=== PATIENT | female | born 1995 | race Caucasian/White ===

== ENCOUNTER 2016-10-27 13:06 | Emergency (ER) | payer SELFPAY ==
--- NOTE | 2016-10-27 13:39 | ER Document Report ---
ED Medical Screen (RME) - General Stated Complaint: RIGHT EYE PAIN/DRAINAGE Time seen by provider: 13:38 Mode of Arrival: Ambulatory Information source: Patient Notes: 21-year-old female complaining of a papule on the right upper lid yesterday and she did have some drainage and redness to her right eye this morning. TRAVEL OUTSIDE OF THE [place] IN LAST 30 DAYS: No - Related Data Allergies/Adverse Reactions: No Known Allergies Allergy (Verified 10/27/16 13:37) Past Medical History Endocrine Medical History: Reports: Hx Diabetes Mellitus Type 2 Renal/ Medical History: Reports: Hx Ovarian Cysts Past Surgical History: Reports: Hx Genitourinary Surgery - D&C - Immunizations Immunizations up to date: Yes Hx Diphtheria, Pertussis, Tetanus Vaccination: Yes Physical Exam - Vital signs Vitals: Temp Pulse Resp BP Pulse Ox 98.3 F 79 18 136/86 H 100 10/27/16 13:23 10/27/16 13:23 10/27/16 13:23 10/27/16 13:23 10/27/16 13:23 Course - Vital Signs Vital signs: Temp Pulse Resp BP Pulse Ox 98.3 F 79 18 136/86 H 100 10/27/16 13:23 10/27/16 13:23 10/27/16 13:23 10/27/16 13:23 10/27/16 13:23
--- NOTE | 2016-10-27 14:06 | ER Document Report ---
HPI - HPI Patient complains to provider of: right eyelid pain Onset: Yesterday Onset/Duration: Gradual Quality of pain: Achy Pain Level: 2 Context: Patient complains of tenderness to right upper eyelid. 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 Patient states she is supposed to wear glasses but does not have a current prescription and does not wear them. Patient denies any change in her vision. Patient denies any drainage or discharge from her right eye. Associated Symptoms: Other - Right eyelid tenderness Exacerbated by: Movement Relieved by: Denies Similar symptoms previously: No Recently seen / treated by doctor: No - ROS ROS below otherwise negative: Yes Systems Reviewed and Negative: Yes All other systems reviewed and negative - CONSTITUTIONAL Constitutional: DENIES: Fever - EENT EENT: REPORTS: Eye problems - NEURO Neurology: DENIES: Headache, Weakness - GASTROINTESTINAL Gastrointestinal: DENIES: Nausea - REPRODUCTIVE Reproductive: DENIES: : - DERM Skin Color: Normal Skin Problems: None Past Medical History - General Information source: Patient - Social History Smoking Status: Never Smoker Frequency of alcohol use: None Drug Abuse: None 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 IN LAST 30 DAYS: No - HEENT HEENT: Atraumatic, Normocephalic Notes: Patient with tender papular lesion to right eyelid. Minimally erythematous. Area tender with palpation. No foreign body to eye. No fluoroscein uptake, no corneal abrasion, ulcer, or dendrite. Extraocular movements intact. No concern for orbital or preseptal cellulitis this time. - NECK Neck: Normal Inspection - RESPIRATORY Respiratory: No Respiratory Distress O2 Sat by Pulse Oximetry: 100 - MUSCULOSKELETAL/EXTREMETIES Musculoskeletal/Extremeties: MAEW - NEURO Level of Consciousness: Awake, Alert, Appropriate Motor/Sensory: No Motor Deficit - DERM Integumentary: Warm, Dry. negative: Abscess Course - Vital Signs Vital signs: Temp Pulse Resp BP Pulse Ox 98.3 F 79 18 136/86 H 100 10/27/16 13:23 10/27/16 13:23 10/27/16 13:23 10/27/16 13:23 10/27/16 13:23 Discharge - Discharge Clinical Impression: Pain of right eyelid, Skin lesion Condition: Stable Disposition: HOME, SELF-CARE Instructions: Antibiotic Therapy ([facility]) Additional Instructions: Return immediately for any new or worsening symptoms Followup with your primary care provider, call tomorrow to make a followup appointment Apply warm compresses to area for comfort Follow-up with java designer for any continued problems Prescriptions: Cephalexin Monohydrate [Keflex 500 mg Capsule] 500 mg PO Q6H 5 Days Naproxen [Naprosyn 250 Nmg Tablet] 1 tab PO BID #14 tablet Forms: Return to Work Referrals: NASH VICTORIA MD [ACTIVE STAFF] - Follow up as needed
[2016-10-27 14:29] VITALS: BP 136/91
== END 2016-10-27 14:28 | disposition home or self-care (01) ==
LOC: ER 13:06
DX: L98.9 Disorder of the skin and subcutaneous tissue, unspecified (principal); R51 Headache; E11.9 Type 2 diabetes mellitus without complications; Z91.19 Patient's noncompliance with other medical treatment and regimen
CPT/HCPCS: 99283

== ENCOUNTER 2017-02-11 17:34 | Emergency (ER) | payer MEDICAID ==
--- NOTE | 2017-02-11 19:46 | ER Document Report ---
ED Medical Screen (RME) - General Mode of Arrival: Ambulatory Information source: Patient TRAVEL OUTSIDE OF THE [place] IN LAST 30 DAYS: No - General Chief Complaint: Chest Tightness Stated Complaint: BLOOD PRESSURE ISSUE Notes: Patient is a 21-year-old female patient reports department for an episode of chest tightness, dizziness and hypertension. Patient states she was at work today and she is not feeling well. Patient had some chest tightness and then room spinning and dizziness. Patient states that she sat down for about 30 minutes and then came to the emergency department. Patient states that her chest pain lasted for about 10 minutes and felt like squeezing or tightness. Patient sat down because she thought she was going to pass out. Patient also had some numbness to her hands, which has been occurring for the past 2 weeks. Patient's blood pressure has been elevated for at least the past 2 weeks if not more. Patient's mother has a history of hypertension, but she is unsure about her father. Patient denies any history of anxiety. (LENA ESPARZA) - Related Data Allergies/Adverse Reactions: No Known Allergies Allergy (Verified 02/11/17 18:02) Past Medical History Endocrine Medical History: Reports: Hx Diabetes Mellitus Type 2 Renal/ Medical History: Reports: Hx Ovarian Cysts. Denies: Hx Peritoneal Dialysis Past Surgical History: Reports: Hx Genitourinary Surgery - D&C - Immunizations Immunizations up to date: Yes Hx Diphtheria, Pertussis, Tetanus Vaccination: Yes Physical Exam - Vital signs Interpretation: Hypertensive - General General appearance: Appears well, Alert - Respiratory Respiratory status: No respiratory distress - Cardiovascular Rhythm: Regular - Abdominal Inspection: Normal - Back Back: Normal - Extremities General upper extremity: Normal inspection, Normal ROM, Normal strength General lower extremity: Normal inspection, Normal ROM, Normal strength - Neurological Neuro grossly intact: Yes Cognition: Normal Orientation: AAOx4 Ramiro Coma Scale Eye Opening: Spontaneous [place] Coma Scale Verbal: Oriented [place] Coma Scale Motor: Obeys Commands Ramiro Coma Scale Total: 15 Speech: Normal Sensory: Normal - Psychological Associated symptoms: Normal affect, Normal mood - Skin Skin Temperature: Warm Skin Moisture: Dry - Vital signs Vitals: Temp Pulse Resp BP Pulse Ox 98.6 F 82 18 160/107 H 99 02/11/17 18:02 02/11/17 18:02 02/11/17 18:02 02/11/17 18:02 02/11/17 18:02 Course - Re-evaluation Re-evalutation: 02/11/17 19:47 Patient presents emergency Department with a chief complaint headache dizziness near syncopal episode numbness and tingling in the hands and chest pain. She is 21 years old she says that she's felt like her blood pressures been elevated for week she has a strong family history of high blood pressure she took it a couple times it was elevated and that she was afraid condition want have a high blood pressure she got up at work felt lightheaded and dizzy like she was given a pass out had to sit down. She felt tightening in her chest that lasts for about 10 minutes. Says she went and sat down she would've passed out. She denies any history or recent travel surgery mobilization DVT or pulmonary emboli. She states she occasionally gets blurred vision. She denies any visit to a primary care physician in years or any known medical problems. She denies nausea via dull pain diarrhea fevers chills or change in appetite. On examination her blood pressure is 160/107 she is complaining of blurred vision but her extraocular muscles intact no vertical or lateral nystagmus mucous members are moist ventral lesions heart rate and rhythm is regular without murmur Rub lungs chest is bilaterally abdomen is soft no tenderness guarding rebound rigidity pulses sensation motor intact EKG doesn't show any acute ST segment elevation or depression. Ordered additional laboratory evaluation chest x-ray she was transferred to the back for full assessment and workup of elevated blood pressure and chest pain. I personally performed the services described in the documentation reviewed the documentation recorded by my scribe in my presence and it accurately and completely records my words and actions 02/11/17 19:49 (DELANEY ANTONIO) - Vital Signs Vital signs: Temp Pulse Resp BP Pulse Ox 98.6 F 82 18 160/107 H 99 02/11/17 18:02 02/11/17 18:02 02/11/17 18:02 02/11/17 18:02 02/11/17 18:02 - EKG Interpretation by Me Additional EKG results interpreted by me: 02/11/17 19:49 EKG interpreted by myself to reveal sinus rhythm at [address] segment elevation or depression (DELANEY ANTONIO) Scribe Documentation - Scribe Written by Danisha:: Lena Esparza 02/11/17 20:00 acting as scribe for :: Salty
[2017-02-11 20:23] LABS: ABSOLUTE EOSINOPHILS # (AUTO) 0.2 10^3/uL (0.0-0.6); ABSOLUTE LYMPHOCYTES (AUTO) 2.7 10^3/uL (0.5-4.7); ABSOLUTE MONOCYTES (AUTO) 0.6 10^3/uL (0.1-1.4); ABSOLUTE NEUT (AUTO) 5.4 10^3/uL (1.7-8.2); BASOPHILS % (AUTO) 0.4 % (0-2); EOSINOPHILS % (AUTO) 1.9 % (0-6); LYMPHOCYTES % (AUTO) 30.1 % (13-45); MEAN CORPUSCULAR HEMOGLOBIN 28.2 pg (27.0-33.4); MEAN CORPUSCULAR VOLUME 83 fl (80-97); MONOCYTES % (AUTO) 7.2 % (3-13); RED BLOOD COUNT 4.95 10^6/uL (3.72-5.28); RED CELL DISTRIBUTION WIDTH 13.1 % (11.5-14.0); SEGMENTED NEUTROPHILS % (AUTO) 60.4 % (42-78); WHITE BLOOD COUNT 8.9 10^3/uL (4.0-10.5)
[2017-02-11 20:37] LABS: ANION GAP 17 (5-19); BLOOD UREA NITROGEN 14 mg/dL (7-20); CALCIUM 10.2 mg/dL (8.4-10.2); CARBON DIOXIDE 24 mmol/L (22-30); CHLORIDE 104 mmol/L (98-107); CREATININE RESULT 0.73 mg/dL (0.52-1.25); GLUCOSE 131 mg/dL (75-110); POTASSIUM 3.9 mmol/L (3.6-5.0); SODIUM 144.6 mmol/L (137-145)
[2017-02-11 20:50] LABS: CREATINE KINASE MB < 0.22 ng/mL (<4.55); TROPONIN I < 0.012 ng/mL
--- NOTE | 2017-02-11 22:19 | ER Document Report ---
ED General - General Chief Complaint: Chest Tightness Stated Complaint: BLOOD PRESSURE ISSUE Mode of Arrival: Ambulatory Notes: Patient is a 21-year-old female presents for complaint of high blood pressure, dizziness, chest. Patient says she has some high blood pressure now for a while. She says that she see primary care doctor but not sooner and a while. She says she just recently got her insurance back should she was go back to her primary care doctor. She says that she's had some intermittent tingling type sensation since her hands while work. She works as seen a. Today she had some brief chest tightness that lasted 10 minutes. No shortness of breath. She also felt dizzy as if she was going to pass out. She did not pass out. No associated headache. No focal weakness. No slurred speech. Patient says her blood pressure has been running high over the last several weeks when she checks at work. She has a strong family history of high blood pressure. Her mother started on high blood pressure medications at a very young age as well. There is some family history of coronary disease. Her grandfather had bypass surgery in his 50s. Patient's mother said bedside and said that the patient's grandmother also had an AL in her 30s; however, says that she did not require stenting or bypass surgery. Patient currently is asymptomatic and she has no other complaints. TRAVEL OUTSIDE OF THE [place] IN LAST 30 DAYS: No - Related Data Allergies/Adverse Reactions: No Known Allergies Allergy (Verified 02/11/17 18:02) Past Medical History - General Information source: Patient - Social History Smoking Status: Never Smoker Frequency of alcohol use: None Drug Abuse: None Family History: Reviewed & Not Pertinent Patient has suicidal ideation: No Patient has homicidal ideation: No Endocrine Medical History: Reports: Hx Diabetes Mellitus Type 2 Renal/ Medical History: Reports: Hx Ovarian Cysts. Denies: Hx Peritoneal Dialysis Past Surgical History: Reports: Hx Genitourinary Surgery - D&C - Immunizations Immunizations up to date: Yes Hx Diphtheria, Pertussis, Tetanus Vaccination: Yes Review of Systems - Review of Systems Notes: My Normal Review Basic REVIEW OF SYSTEMS: CONSTITUTIONAL : Denies fever, chills, or sweats. Denies recent illness. CARDIOVASCULAR: Brief chest tightness. RESPIRATORY: Denies cough, cold, or chest congestion. Denies shortness of breath, difficulty breathing, or wheezing. GASTROINTESTINAL: Denies abdominal pain. Denies nausea, vomiting, or diarrhea. Denies constipation. Last BM: GENITOURINARY: Denies difficulty urinating, painful urination, burning, frequency, or blood in urine. FEMALE GENITOURINARY: Denies vaginal bleeding, abnormal or irregular periods. MUSCULOSKELETAL: Denies neck or back pain or joint pain or swelling. SKIN: Denies rash or skin lesions. NEUROLOGICAL: Had dizziness.. Denies headache. Denies weakness or paralysis or loss of use of either side. Denies problems with gait or speech. Denies sensory or motor loss. ALL OTHER SYSTEMS REVIEWED AND NEGATIVE. Physical Exam - Vital signs Vitals: Temp Pulse Resp BP Pulse Ox 98.6 F 82 18 160/107 H 99 02/11/17 18:02 02/11/17 18:02 02/11/17 18:02 02/11/17 18:02 02/11/17 18:02 - Notes Notes: General Appearance: Well nourished, alert, cooperative, no acute distress, no obvious discomfort. Well-appearing. Vitals: reviewed, See vital signs table. Head: no swelling or tenderness to the head Eyes: PERRL, EOMI, Conjuctiva clear Mouth: No decreasd moisture Lungs: No wheezing, No rales, No rhonci, No accessory muscle use, good air exchange bilaterally. Heart: Normal rate, Regular rythm, No murmur, no rub Abdomen: Normal BS, soft, No rigidity, No abdominal tenderness, No guarding, no rebound, no abdominal masses, no organomegaly Extremities: strength 5/5 in all extremities, good pulses in all extremities, no swelling or tenderness in the extremities, no edema. Skin: warm, dry, appropriate color, no rash Neuro: speech clear, oriented x 3, normal affect, responds appropriately to questions. Cranial nerves II through XII are intact. Patient was alternates without difficulty. Normal focal neurologic deficits on exam. Course - Vital Signs Vital signs: Temp Pulse Resp BP Pulse Ox 98.6 F 82 18 160/107 H 99 02/11/17 18:02 02/11/17 18:02 02/11/17 18:02 02/11/17 18:02 02/11/17 18:02 - Laboratory Result Diagrams: 02/11/17 19:55 02/11/17 19:55 Laboratory results interpreted by me: 02/11/17 19:55 Glucose 131 H - EKG Interpretation by Me Additional EKG results interpreted by me: 02/11/17 22:19 EKG is reviewed and interpreted by me. EKG shows normal sinus rhythm with a rate of [address] segment elevation or depression. No ischemic T wave inversions. ID interval, QRS duration, QTc interval's are within normal range. Old EKG for comparison is from 06/12/2014. - Transfer of Care Notes: 02/11/17 22:44 Patient is consistent high blood pressure for at least 2 weeks. She has a strong family history of high blood pressure. She is slightly overweight. I did talk about diet change. We'll place on low-dose hydrochlorothiazide. She agrees to make a close follow-up appointment with her primary care doctor. Her laboratory evaluation is unremarkable. Her EKG is normal. She is asymptomatic this time. I feel she is safe to be discharged home. I encouraged to return to ER if she has recurrent chest pain, difficulty breathing, severe headaches, or feels unwell. I encourage her to check her blood pressure immediately if she feels lightheaded or dizzy. Patient agrees with plan and will be discharged home. Dictation of this chart was performed using voice recognition software; therefore, there may be some unintended grammatical errors. Discharge - Discharge Clinical Impression: Chest tightness Hypertension Qualifiers: Hypertension type: essential hypertension Qualified Code(s): I10 - Essential ( primary) hypertension Condition: Good Disposition: HOME, SELF-CARE Additional Instructions: HIGH BLOOD PRESSURE REQUIRING TREATMENT: Your blood pressure is high. This is called "hypertension." Today's reading was ___160/107 (normal is less than 140/90). Your history and exam suggest that this is not a temporary problem. You need treatment of your blood pressure. If left untreated, high blood pressure greatly increases your risk of heart attack and stroke. Please don't ignore this problem. If you have blood pressure medicine but aren't using it regularly, start taking it again. Some simple things you can do to help are: Get some aerobic exercise for at least 20 minutes on a daily basis. (See your doctor before beginning any new exercise program.) Eat a low-fat diet. Lose excess weight. Avoid salty foods and avoid adding salt to any of the foods you eat. Avoid diet pills, decongestants, "energizing" herbs, and other medicines that elevate blood pressure. There are many different medicines that treat blood pressure. If your medication causes unpleasant side effects, call your doctor. There are others you can try. Treating hypertension is a life-long investment in your health. HYDROCHLOROTHIAZIDE: Hydrochlorothiazide is a diuretic medication. Diuretics are often called "water pills." The medicine flushes excess salt and water from the body. Diuretics are used for fluid retention (such as heart failure, cirrhosis, or lung disease) and for blood pressure control. Often hydrochlorothiazide is combined with other medicines in the same pill. Most patients prefer to take the medicine in the morning. Hydrochlorothiazide makes extra urine, which can be a problem if you take the pill at night. Diuretics make you lose potassium. Sometimes a good diet with plenty of fruit is enough to replace it. Sometimes a potassium supplement is necessary. Or, hydrochlorothiazide may be combined with medicines that prevent potassium loss. We usually recommend a blood potassium test in a few weeks. Contact your doctor if you develop extreme fatigue, muscle weakness, lethargy, confusion, or palpitations. FOLLOW-UP CARE: If you have been referred to a physician for follow-up care, call the physician s office for an appointment as you were instructed or within the next two days. If you experience worsening or a significant change in your symptoms, notify the physician immediately or return to the Emergency Department at any time for re-evaluation. Please return to the ER immediately if you have recurrent chest pain, severe headache, or feel unwell. Please make an appointment to see your doctor to discuss further management of your blood pressure. Check your blood pressure if you are feeling light headed to make sure your blood pressure is not becoming too low. Prescriptions: Hydrochlorothiazide 12.5 mg PO DAILY #15 capsule Forms: Return to Work
[2017-02-11] MEDS ORDERED: HYDROCHLOROTHIAZIDE 12.5 MG CAPSULE PO ONE (22:29)
[2017-02-11 22:52] VITALS: BP 147/102
--- NOTE | 2017-02-12 09:39 | EKG REPORT ---
SEVERITY:- BORDERLINE ECG - SINUS RHYTHM BORDERLINE T ABNORMALITIES, INFERIOR LEADS : Confirmed by: Katelin Bull 12-Feb-2017 09:38:47
== END 2017-02-11 22:52 | disposition home or self-care (01) ==
LOC: ER 17:34
DX: R07.9 Chest pain, unspecified (principal); I10 Essential (primary) hypertension; R42 Dizziness and giddiness
CPT/HCPCS: 36415; 71010; 80048; 82553; 84484; 85025; 93005; 93010; 99284

== ENCOUNTER 2017-05-03 14:52 | Emergency (ER) | payer SELFPAY ==
--- NOTE | 2017-05-03 16:29 | ER Document Report ---
ED Medical Screen (RME) - General Chief Complaint: Nausea Stated Complaint: BACK PAIN Time Seen by Provider: 05/03/17 16:22 Mode of Arrival: Ambulatory Information source: Patient Notes: Patient is a 21 year old female who presents to the ED with complaints of intermittent low back pain for the past couple weeks. 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 Patient states the symptoms have progressively worsened over the last few weeks. Patient denies vomiting but states she has had a decreased appetite. Patient denies any burning with urination or hematuria. TRAVEL OUTSIDE OF THE [place] IN LAST 30 DAYS: No - HPI Associated Symptoms: Other - see above - Related Data Allergies/Adverse Reactions: No Known Allergies Allergy (Verified 05/03/17 15:16) Past Medical History - General Information source: Patient - Social History Cigarette use (# per day): No Chew tobacco use (# tins/day): No Frequency of alcohol use: None Drug Abuse: None Endocrine Medical History: Reports: Hx Diabetes Mellitus Type 2 Renal/ Medical History: Reports: Hx Ovarian Cysts. Denies: Hx Peritoneal Dialysis Past Surgical History: Reports: Hx Genitourinary Surgery - D&C - Immunizations Immunizations up to date: Yes Hx Diphtheria, Pertussis, Tetanus Vaccination: Yes Review of Systems - Review of Systems Constitutional: No symptoms reported EENT: No symptoms reported Cardiovascular: See HPI, Dizziness Respiratory: No symptoms reported Gastrointestinal: See HPI, Nausea. denies: Vomiting Genitourinary: See HPI. denies: Burning, Hematuria Female Genitourinary: No symptoms reported Musculoskeletal: See HPI, Back pain Skin: No symptoms reported Hematologic/Lymphatic: No symptoms reported Neurological/Psychological: No symptoms reported Physical Exam - Vital signs Vitals: Temp Pulse Resp BP Pulse Ox 98.8 F 80 20 143/94 H 100 05/03/17 15:16 05/03/17 15:16 05/03/17 15:16 05/03/17 15:16 05/03/17 15:16 - General General appearance: Appears well, Alert In distress: None - Respiratory Respiratory status: No respiratory distress Breath sounds: Normal - Cardiovascular Rhythm: Regular Heart sounds: Normal auscultation Murmur: No - Back Back: Tender - mild lumbar tenderness - Neurological Neuro grossly intact: Yes Course - Vital Signs Vital signs: Temp Pulse Resp BP Pulse Ox 98.8 F 80 20 143/94 H 100 05/03/17 15:16 05/03/17 15:16 05/03/17 15:16 05/03/17 15:16 05/03/17 15:16 Scribe Documentation - Scribe Written by Griselda:: griselda Cruz, 05/03/2017, 0720 acting as scribe for :: Adele
[2017-05-03 17:01] LABS: ABSOLUTE BASOPHILS # (AUTO) 0.1 10^3/uL (0.0-0.2); ABSOLUTE EOSINOPHILS # (AUTO) 0.2 10^3/uL (0.0-0.6); ABSOLUTE LYMPHOCYTES (AUTO) 2.8 10^3/uL (0.5-4.7); ABSOLUTE NEUT (AUTO) 5.7 10^3/uL (1.7-8.2); BASOPHILS % (AUTO) 0.6 % (0-2); EOSINOPHILS % (AUTO) 2.3 % (0-6); HEMATOCRIT 41.8 % (36.0-47.0); HEMOGLOBIN 13.7 g/dL (12.0-15.5); HGB HCT DIFFERENCE -0.7; MEAN CORPUSCULAR HEMOGLOBIN 27.7 pg (27.0-33.4); MEAN CORPUSCULAR HGB CONC 32.8 g/dL (32.0-36.0); MEAN CORPUSCULAR VOLUME 85 fl (80-97); MONOCYTES % (AUTO) 9.9 % (3-13); RED BLOOD COUNT 4.94 10^6/uL (3.72-5.28); SEGMENTED NEUTROPHILS % (AUTO) 58.2 % (42-78); WHITE BLOOD COUNT 9.7 10^3/uL (4.0-10.5)
[2017-05-03 17:14] LABS: APPEARANCE,URINE SLIGHTLY-CLOUDY; BILIRUBIN,URINE NEGATIVE (NEGATIVE); GLUCOSE, URINE NEGATIVE (NEGATIVE); KETONES,URINE NEGATIVE (NEGATIVE); LEUKOCYTE ESTERASE,URINE TRACE (NEGATIVE); NITRITE,URINE NEGATIVE (NEGATIVE); PROTEIN,URINE NEGATIVE (NEGATIVE); URINE SPECIFIC GRAVITY 1.019; UROBILINOGEN,URINE NEGATIVE mg/dL (<2.0)
[2017-05-03 17:31] LABS: ANION GAP 9 (5-19); BLOOD UREA NITROGEN 16 mg/dL (7-20); CALCIUM 9.7 mg/dL (8.4-10.2); CARBON DIOXIDE 26 mmol/L (22-30); CHLORIDE 103 mmol/L (98-107); CREATININE RESULT 0.75 mg/dL (0.52-1.25); GLUCOSE 98 mg/dL (75-110); POTASSIUM 4.6 mmol/L (3.6-5.0); SODIUM 138.1 mmol/L (137-145)
--- NOTE | 2017-05-03 18:36 | ER Document Report ---
ED General - General Mode of Arrival: Ambulatory Information source: Patient TRAVEL OUTSIDE OF THE [place] IN LAST 30 DAYS: No - HPI Onset: Other - Refer to HPI notes Associated symptoms: Body/muscle aches, Nausea, Shortness of breath. denies: Chills, Productive cough, Earache, Fever, Sore throat Similar symptoms previously: No Recently seen / treated by doctor: No <LENA JAIMES - Last Filed: 05/03/17 19:03> <DELANEY ANTONIO - Last Filed: 05/04/17 04:22> - General Chief Complaint: Nausea Stated Complaint: BACK PAIN Time Seen by Provider: 05/03/17 16:22 Notes: Patient is a 21-year-old female presenting to the emergency department for some low back pain and nausea. Patient states she has had symptoms for a couple weeks along with some body cramps. Patient also complains of some shortness of breath that she relates to her anxiety and some blurred vision which she relates to her hypertension. Patient relates that she is primarily concerned that something is wrong because she has had increased tiredness along with her other symptoms. Patient denies any cough, fever, sore throat, ear pain, congestion, or sick contacts. Patient states he continues to have a primary care physician during the insurance that she is not having care physician. Patient has no known drug allergies. (LENA JAIMES) - Related Data Allergies/Adverse Reactions: No Known Allergies Allergy (Verified 05/03/17 15:16) Past Medical History - General Information source: Patient - Social History Smoking Status: Never Smoker Cigarette use (# per day): No Chew tobacco use (# tins/day): No Frequency of alcohol use: None Drug Abuse: None Family History: None Patient has suicidal ideation: No Patient has homicidal ideation: No - Past Medical History Cardiac Medical History: Reports: Hx Hypertension Renal/ Medical History: Reports: Hx Ovarian Cysts Psychiatric Medical History: Reports: Hx Anxiety Past Surgical History: Reports: Hx Genitourinary Surgery - D&C - Immunizations Immunizations up to date: Yes Hx Diphtheria, Pertussis, Tetanus Vaccination: Yes <LENA JAIMES - Last Filed: 05/03/17 19:03> Review of Systems - Review of Systems Constitutional: See HPI, Other - cramping EENT: See HPI, Blurred vision Cardiovascular: No symptoms reported Respiratory: See HPI, Short of breath Gastrointestinal: See HPI, Nausea Genitourinary: No symptoms reported Female Genitourinary: No symptoms reported Musculoskeletal: No symptoms reported Skin: No symptoms reported Hematologic/Lymphatic: No symptoms reported Neurological/Psychological: See HPI, Anxiety -: Yes All other systems reviewed and negative <LENA JAIMES - Last Filed: 05/03/17 19:03> Physical Exam - Vital signs Interpretation: Hypertensive <LENA JAIMES - Last Filed: 05/03/17 19:03> <DELANEY ANTONIO - Last Filed: 05/04/17 04:22> - Vital signs Vitals: Temp Pulse Resp BP Pulse Ox 98.8 F 80 20 143/94 H 100 05/03/17 15:16 05/03/17 15:16 05/03/17 15:16 05/03/17 15:16 05/03/17 15:16 - Notes Notes: GENERAL: Alert, interacts well. No acute distress. HEAD: Normocephalic, atraumatic. EYES: Appear normal. Pupils equal, round, and reactive to light. ENT: Moist mucus membranes, tongue midline. NECK: Full range of motion. Supple. Trachea midline. LUNGS: Clear to auscultation bilaterally, no wheezes, rales, or rhonchi. No respiratory distress. HEART: Regular rate and rhythm. No murmurs, gallops, or rubs. ABDOMEN: Soft, non-tender. Non-distended. Normal bowel sounds. EXTREMITIES: Moves all 4 extremities spontaneously. Normal strength. No edema. NEUROLOGICAL: Alert and oriented x3. Normal speech. No focal neurological deficits. GSC 15. PSYCH: Normal affect, normal mood. SKIN: Warm, dry, normal turgor. No rashes or lesions noted. (LENA JAIMES) Course - Laboratory Result Diagrams: 05/03/17 16:35 05/03/17 16:35 <LENA JAIMES - Last Filed: 05/03/17 19:03> - Laboratory Result Diagrams: 05/03/17 16:35 05/03/17 16:35 <DELANEY ANTONIO - Last Filed: 05/04/17 04:22> - Re-evaluation Re-evalutation: 05/03/17 18:38 Patient presents the emergency department chief complaint of having felt well ever for 2 weeks. She states that she has been tired intermittent trouble focusing and her anxiety has been worse. She denies any headache blurred vision double vision earache sore throat cough chest pain shortness of breath nausea vomiting dull pain diarrhea urinary symptoms with admits to some low back pain which is not flank in nature. Vital signs are stable she is well- appearing nontoxic no acute distress with no acute findings on physical examination including no midline back tenderness lumbosacral weakness good pulses and perfusion abdomen without guarding rebound or rigidity acute labs are normal. At this time no need for emergent medical intervention. Going to discharge her to home follow-up with her primary care physician and getting her from the clinic and discussed reasons for ED return sooner (DELANEY ANTONIO) - Vital Signs Vital signs: Temp Pulse Resp BP Pulse Ox 98.0 F 70 18 136/90 H 99 05/03/17 18:50 05/03/17 18:50 05/03/17 18:50 05/03/17 18:50 05/03/17 18:50 - Laboratory Laboratory results interpreted by me: 05/03/17 16:35 Ur Leukocyte Esterase TRACE H Urine Ascorbic Acid 20 H Discharge <LENA JAIMES - Last Filed: 05/03/17 19:03> <DELANEY ANTONIO - Last Filed: 05/04/17 04:22> - Discharge Clinical Impression: Generalized weakness Condition: Stable Disposition: HOME, SELF-CARE Additional Instructions: Weakness We did not find a definite cause for your weakness. This may require further medical tests. Weakness can be caused by infection, physical exhaustion , rapid weight loss, dehydration, or medicine side effects. Diseases of the muscles, heart, nerves, and blood vessels can make you weak. Sometimes the problem is simply depression or lack of exercise. You should get plenty of rest. Unless the doctor tells you otherwise, it's usually best to add short periods of regular mild exercise. Eat a nutritious diet with multiple small, low-sugar meals. If symptoms continue, additional medical evaluation will be necessary. Be sure to follow up as instructed. If you become very dizzy, nauseated, or feel like you're going to faint, lie down right away. Wait until the symptoms have passed before you get up again. Stand up slowly. Call the doctor or return if you develop chest pain, abdominal pain, severe headache, irregular heartbeat or very fast pulse, confusion, vision problems, fever, muscular pain, or any other new symptom. Referrals: [facility] [Provider Group] (Call for an appointment to be seen in follow-up in 4-5 days return for increasing worsening or new symptoms) Scribe Attestation: 05/03/17 18:40 I personally performed the services described in the documentation reviewed the documentation recorded by my scribe in my presence and it accurately and completely records my words and actions (DELANEY ANTONIO) Scribe Documentation - Scribe Written by Scribe:: Danisha Hannah, 05/03/2017 19:03 acting as scribe for :: Salty <LENA JAIMES - Last Filed: 05/03/17 19:03>
[2017-05-03 18:55] VITALS: BP 136/90
== END 2017-05-03 18:53 | disposition home or self-care (01) ==
LOC: ER 14:52
DX: R53.1 Weakness (principal); R11.0 Nausea; M79.1 Myalgia; R06.02 Shortness of breath; I10 Essential (primary) hypertension
CPT/HCPCS: 36415; 80048; 81001; 81025; 84443; 85025; 99283

== ENCOUNTER 2017-09-22 01:53 | Emergency (ER) | payer SELFPAY ==
[2017-09-22 02:18] VITALS: BP 152/86
--- NOTE | 2017-09-22 04:12 | ER Document Report ---
ED General - General Chief Complaint: Medication Refill Stated Complaint: BLOOD PRESSURE ISSUE Time Seen by Provider: 09/22/17 03:46 Notes: Patient is a pleasant 22-year-old female has a history of hypertension. She has been seen here in the past for hypertension prescribed medications. She says since then she has also gone to [facility] ER. She says sometimes when she goes without the medication she will get some headaches and sometimes dizziness. She said she had that earlier in the day today but currently is not having no symptoms. She denies any chest pain or shortness of breath. She says she is on amlodipine 5 mg daily. She ran out of it 3-4 days ago. No focal weakness or numbness. TRAVEL OUTSIDE OF THE [place] IN LAST 30 DAYS: No - Related Data Allergies/Adverse Reactions: No Known Allergies Allergy (Verified 05/03/17 15:16) Home Medications: Current Home Medications Amlodipine Besylate [Norvasc 5 mg Tablet] 5 mg PO DAILY 09/22/17 [History] Past Medical History - Social History Smoking Status: Unknown if Ever Smoked Frequency of alcohol use: None Drug Abuse: None Family History: None Patient has suicidal ideation: No Patient has homicidal ideation: No - Past Medical History Cardiac Medical History: Reports: Hx Hypertension Endocrine Medical History: Reports: Hx Diabetes Mellitus Type 2 Renal/ Medical History: Reports: Hx Ovarian Cysts. Denies: Hx Peritoneal Dialysis Psychiatric Medical History: Reports: Hx Anxiety Past Surgical History: Reports: Hx Genitourinary Surgery - D&C - Immunizations Immunizations up to date: Yes Hx Diphtheria, Pertussis, Tetanus Vaccination: Yes Review of Systems - Review of Systems Notes: My Normal Review Basic REVIEW OF SYSTEMS: CONSTITUTIONAL : Denies fever, chills, or sweats. Denies recent illness. CARDIOVASCULAR: Denies chest pain. RESPIRATORY: Denies cough, cold, or chest congestion. Denies shortness of breath, difficulty breathing, or wheezing. GASTROINTESTINAL: Denies abdominal pain. Denies nausea, vomiting, or diarrhea. Denies constipation. Last BM: MUSCULOSKELETAL: Denies neck or back pain or joint pain or swelling. SKIN: Denies rash or skin lesions. NEUROLOGICAL: Denies altered mental status or loss of consciousness. intermittent headache. Denies weakness or paralysis or loss of use of either side. Denies problems with gait or speech. Denies sensory or motor loss. ALL OTHER SYSTEMS REVIEWED AND NEGATIVE. Physical Exam - Vital signs Vitals: Temp Pulse Resp BP Pulse Ox 98.8 F 84 18 152/86 H 99 09/22/17 02:15 09/22/17 02:15 09/22/17 02:15 09/22/17 02:15 09/22/17 02:15 - Notes Notes: General Appearance: Well nourished, alert, cooperative, no acute distress, no obvious discomfort. Vitals: reviewed, See vital signs table. Head: no swelling or tenderness to the head Eyes: PERRL, EOMI, Conjuctiva clear Mouth: No decreasd moisture Lungs: No wheezing, No rales, No rhonci, No accessory muscle use, good air exchange bilaterally. Heart: Normal rate, Regular rythm, No murmur, no rub Extremities: strength 5/5 in all extremities, good pulses in all extremities, no swelling or tenderness in the extremities, no edema. Skin: warm, dry, appropriate color, no rash Neuro: speech clear, oriented x 3, normal affect, responds appropriately to questions. Cranial nerves II through XII are grossly intact. Patient has normal ambulation. Course - Re-evaluation Re-evalutation: 09/22/17 06:32 Patient looks well. I feel the patient safe to be discharged home. She has no symptoms at this time. She had some headache earlier but that has resolved. She says this headache is typical for her whenever she runs out of her blood pressure medication her blood pressure starts to increase. I will place her back on amlodipine. I talked her length about the need to follow with a primary care physician to have chronic management of her high blood pressure. She says she does not have insurance. I did talked about the [facility] and told her that sometimes there is a little bit of a wait to get an however she should call now to make an appointment so that she will have a eventual primary care doctor follow-up with. Patient agrees with this will be discharged home. She is encouraged to return to ER if she has worsening high blood pressure, chest pain, severe headaches, or feels unwell. Dictation of this chart was performed using voice recognition software; therefore, there may be some unintended grammatical errors. - Vital Signs Vital signs: Temp Pulse Resp BP Pulse Ox 98.8 F 84 18 152/86 H 99 09/22/17 02:15 09/22/17 02:15 09/22/17 02:15 09/22/17 02:15 09/22/17 02:15 Discharge - Discharge Clinical Impression: Hypertension Qualifiers: Hypertension type: unspecified Qualified Code(s): I10 - Essential (primary) hypertension Condition: Good Disposition: HOME, SELF-CARE Instructions: Family Physicians / Practices Additional Instructions: CALCIUM CHANNEL BLOCKERS: A medication of the calcium channel jessica type has been prescribed for you. Examples of this type of medicine are Calan, Isoptin, Procardia, and Cardizem. These medicines have a variety of uses, including prevention of angina attacks, treatment of blood pressure, regulation of certain heart rhythm problems, and prevention of migraine headaches. Calcium channel blockers work by interfering with the flow of calcium in cell membranes. This results in dilation of blood vessels, and slowing of electrical conduction in the heart. A slight dizziness (due to a fall in blood pressure) may occur with the first dose, and sometimes even with later doses. This may make you prone to dizziness if you stand up suddenly. Call the doctor if lightheadedness is severe, or if you develop palpitations, shortness of breath, or any other new or alarming symptoms. FOLLOW-UP CARE: If you have been referred to a physician for follow-up care, call the physician s office for an appointment as you were instructed or within the next two days. If you experience worsening or a significant change in your symptoms, notify the physician immediately or return to the Emergency Department at any time for re-evaluation. Please return to the ER immediately if you have worsening headaches, difficulty breathing, vomiting, chest pain or feel unwell. Please call the [facility] to arrange for a follow up appointment and become established with them for terminal manager treatment of your blood pressure. Prescriptions: Amlodipine Besylate 5 mg PO DAILY #30 tab
== END 2017-09-22 04:16 | disposition home or self-care (01) ==
LOC: ER 01:53
DX: I10 Essential (primary) hypertension (principal); R51 Headache; R42 Dizziness and giddiness; Z79.899 Other long term (current) drug therapy
CPT/HCPCS: 99281

== ENCOUNTER 2017-11-28 16:38 | Emergency (ER) | payer SELFPAY ==
[2017-11-28] MEDS ORDERED: CLONIDINE HCL 0.1 MG TABLET PO ONE (17:10)
--- NOTE | 2017-11-28 17:13 | ER Document Report ---
ED General - General Chief Complaint: Medication Refill Stated Complaint: MEDICATION REFILL Time Seen by Provider: 11/28/17 16:59 Mode of Arrival: Ambulatory Information source: Patient Notes: Patient is a 22-year-old female who presents to the ER today for refill on her blood pressure medication. Patient states that she usually takes Norvasc 5 mg at night but ran out approximately 3 weeks ago. Patient is complaining of a headache but denies any chest discomfort, shortness of breath, blurred vision. Although she states that she has been getting all of these symptoms intermittently from time to time. Patient states that she is waiting on her insurance to "go through so that I can go to a regular doctor and get this checked out." TRAVEL OUTSIDE OF THE [place] IN LAST 30 DAYS: No - Related Data Allergies/Adverse Reactions: No Known Allergies Allergy (Verified 11/28/17 16:38) Past Medical History - General Information source: Patient - Social History Smoking Status: Never Smoker Family History: None - Past Medical History Cardiac Medical History: Reports: Hx Hypertension Endocrine Medical History: Reports: Hx Diabetes Mellitus Type 2 Renal/ Medical History: Reports: Hx Ovarian Cysts. Denies: Hx Peritoneal Dialysis Psychiatric Medical History: Reports: Hx Anxiety Past Surgical History: Reports: Hx Genitourinary Surgery - D&C - Immunizations Immunizations up to date: Yes Hx Diphtheria, Pertussis, Tetanus Vaccination: Yes Review of Systems - Review of Systems Constitutional: No symptoms reported EENT: No symptoms reported Cardiovascular: See HPI Respiratory: No symptoms reported Gastrointestinal: No symptoms reported Genitourinary: No symptoms reported Female Genitourinary: No symptoms reported Musculoskeletal: No symptoms reported Skin: No symptoms reported Hematologic/Lymphatic: No symptoms reported Neurological/Psychological: No symptoms reported Physical Exam - Vital signs Vitals: Temp Pulse Resp BP Pulse Ox 98.9 F 71 16 154/101 H 98 11/28/17 16:47 11/28/17 16:47 11/28/17 16:47 11/28/17 16:47 11/28/17 16:47 - Notes Notes: PHYSICAL EXAMINATION: GENERAL: Well-appearing and in no acute distress. HEAD: Atraumatic, normocephalic. EYES: Pupils equal round and reactive to light, extraocular movements intact, sclera anicteric, conjunctiva are normal. ENT: ear canals without erythema or foreign body, TMs pearly sneed with good bony landmarks, nares patent, oropharynx clear without exudates. Moist mucous membranes. NECK: Normal range of motion, supple without lymphadenopathy LUNGS: CTAB and equal. No wheezes rales or rhonchi. HEART: Regular rate and rhythm without murmurs ABDOMEN: Soft, no tenderness. No guarding, no rebound BACK: no vertebral tenderness, normal ROM GI/: no CVA tenderness EXTREMITIES: Normal range of motion, no pitting edema. No cyanosis. NEUROLOGICAL: Cranial nerves grossly intact. Normal sensory/motor exams. PSYCH: Normal mood, normal affect. SKIN: Warm, Dry, normal turgor, no rashes or lesions noted Course - Vital Signs Vital signs: Temp Pulse Resp BP Pulse Ox 98.9 F 71 16 154/101 H 98 11/28/17 16:47 11/28/17 16:47 11/28/17 16:47 11/28/17 16:47 11/28/17 16:47 Discharge - Discharge Clinical Impression: Hypertension Qualifiers: Hypertension type: essential hypertension Qualified Code(s): I10 - Essential ( primary) hypertension Condition: Stable Disposition: HOME, SELF-CARE Additional Instructions: Return immediately for any new or worsening symptoms. Follow up with primary care provider, call tomorrow to make followup appointment. Prescriptions: Amlodipine Besylate [Norvasc 5 mg Tablet] 5 mg PO DAILY #30 tablet Clonidine HCl 0.1 mg PO Q8 PRN #15 tablet PRN Reason: Forms: Return to Work
[2017-11-28 17:40] VITALS: BP 137/86
== END 2017-11-28 17:45 | disposition home or self-care (01) ==
LOC: ER 16:38
DX: Z76.0 Encounter for issue of repeat prescription (principal); I10 Essential (primary) hypertension; R51 Headache; T46.1X6A Underdosing of calcium-channel blockers, initial encounter; Z91.128 Patient's intentional underdosing of medication regimen for other reason; Z91.14 Patient's other noncompliance with medication regimen; E11.9 Type 2 diabetes mellitus without complications
CPT/HCPCS: 99281

== ENCOUNTER 2017-11-29 19:11 | Emergency (ER) | payer SELFPAY ==
--- NOTE | 2017-11-29 20:02 | ER Document Report ---
ED Medical Screen (RME) - General Chief Complaint: Headache Stated Complaint: VISION PROBLEMS Time Seen by Provider: 11/29/17 19:57 Mode of Arrival: Ambulatory Information source: Patient TRAVEL OUTSIDE OF THE [place] IN LAST 30 DAYS: No - HPI Notes: 11/29/17 19:57 22 yr old female with a hx of htn presents today with c/o of sudden onset headache with flashing light and loss of vision in left eye. reports headache 5 minutes after her visual disturbance with left arm numbness and tingling. reports nausea, denies v/d. reports cp and sob at the time, but has since resolved. reports she has been taking bp meds for 5 months, ran months for 4 days, came to her for a refill of her medications. reports she took her bp meds , norvasc and clonidine. - Related Data Allergies/Adverse Reactions: No Known Allergies Allergy (Verified 11/29/17 19:23) Past Medical History - Past Medical History Cardiac Medical History: Reports: Hx Hypertension Endocrine Medical History: Reports: Hx Diabetes Mellitus Type 2 Renal/ Medical History: Reports: Hx Ovarian Cysts. Denies: Hx Peritoneal Dialysis Psychiatric Medical History: Reports: Hx Anxiety Past Surgical History: Reports: Hx Genitourinary Surgery - D&C - Immunizations Immunizations up to date: Yes Hx Diphtheria, Pertussis, Tetanus Vaccination: Yes Physical Exam - Vital signs Vitals: Temp Pulse Resp BP Pulse Ox 99.0 F 71 20 147/97 H 100 11/29/17 19:51 11/29/17 19:51 11/29/17 19:51 11/29/17 19:51 11/29/17 19:51 - Respiratory Respiratory status: No respiratory distress Chest status: Nontender Breath sounds: Normal Chest palpation: Normal - Cardiovascular Rhythm: Regular Murmur: No - Neurological Neuro grossly intact: Yes Cognition: Normal Orientation: AAOx4 Ramiro Coma Scale Eye Opening: Spontaneous Cavalier Coma Scale Verbal: Oriented Cavalier Coma Scale Motor: Obeys Commands Cavalier Coma Scale Total: 15 Speech: Normal Cranial nerves: Normal Cerebellar coordination: Normal Motor strength normal: LUE, RUE, LLE, RLE Additional motor exam normals: Equal box finisher Course - Vital Signs Vital signs: Temp Pulse Resp BP Pulse Ox 99.0 F 71 20 147/97 H 100 11/29/17 19:51 11/29/17 19:51 11/29/17 19:51 11/29/17 19:51 11/29/17 19:51
[2017-11-29] MEDS ORDERED: LOSARTAN POTASSIUM 25 MG TABLET PO ONE (20:05)
--- NOTE | 2017-11-29 21:09 | RADIOLOGY REPORT (SQ) ---
EXAM DESCRIPTION: CHEST PA/LAT COMPLETED DATE/TIME: 11/29/2017 9:00 pm REASON FOR STUDY: tucker with n/t down arm. +cp with sob COMPARISON: 02/11/2017 EXAM PARAMETERS: NUMBER OF VIEWS: two views TECHNIQUE: Digital Frontal and Lateral radiographic views of the chest acquired. RADIATION DOSE: NA LIMITATIONS: none FINDINGS: LUNGS AND PLEURA: No opacities, masses or pneumothorax. No pleural effusion. MEDIASTINUM AND HILAR STRUCTURES: No masses or contour abnormalities. HEART AND VASCULAR STRUCTURES: Heart normal size. No evidence for failure. BONES: No acute findings. HARDWARE: None in the chest. OTHER: No other significant finding. IMPRESSION: NO SIGNIFICANT RADIOGRAPHIC FINDING IN THE CHEST. TECHNICAL DOCUMENTATION: JOB ID: [id number] [employer]- All Rights Reserved
--- NOTE | 2017-11-29 21:12 | RADIOLOGY REPORT (SQ) ---
EXAM DESCRIPTION: CT HEAD WITHOUT COMPLETED DATE/TIME: 11/29/2017 9:04 pm REASON FOR STUDY: sudden onset HOBSON, +left arm N/T COMPARISON: None. TECHNIQUE: Axial images acquired through the brain without intravenous contrast. Images reviewed wi th bone, brain and subdural windows. Images stored on PACS. All CT scanners at this facility use dose modulation, iterative reconstruction, and/or weight based d osing when appropriate to reduce radiation dose to as low as reasonably achievable (ALARA). [facility]: Dose Right [facility]: CareDose [facility]: Dose Right [facility]: Teradose 4D [facility]: [email or web address] RADIATION DOSE: CT Rad equipment meets quality standard of care and radiation dose reduction techniq ues were employed. CTDIvol: 64.6 mGy. DLP: 1034 mGy-cm. mGy. LIMITATIONS: None. FINDINGS: VENTRICLES: Normal size and contour. CEREBRUM: No masses. No hemorrhage. No midline shift. No evidence for acute infarction. Normal gra y/white matter differentiation. No areas of low density in the white matter. CEREBELLUM: No masses. No hemorrhage. No alteration of density. No evidence for acute infarction. EXTRAAXIAL SPACES: No fluid collections. No masses. ORBITS AND GLOBE: No intra- or extraconal masses. Normal contour of globe without masses. CALVARIUM: No fracture. PARANASAL SINUSES: No fluid or mucosal thickening. SOFT TISSUES: No mass or hematoma. OTHER: No other significant finding. IMPRESSION: NORMAL BRAIN CT WITHOUT CONTRAST. EVIDENCE OF ACUTE STROKE: NO. COMMENT: Quality ID # [id number]: Final reports with documentation of one or more dose reduction techniques (e.g., Automated exposure control, adjustment of the mA and/or kV according to patient size, use of iterative reconstruction technique) TECHNICAL DOCUMENTATION: JOB ID: [id number]- All Rights Reserved
[2017-11-29 21:45] LABS: ABSOLUTE BASOPHILS # (AUTO) 0.1 10^3/uL (0.0-0.2); ABSOLUTE EOSINOPHILS # (AUTO) 0.3 10^3/uL (0.0-0.6); ABSOLUTE LYMPHOCYTES (AUTO) 3.2 10^3/uL (0.5-4.7); ABSOLUTE MONOCYTES (AUTO) 0.9 10^3/uL (0.1-1.4); ABSOLUTE NEUT (AUTO) 5.8 10^3/uL (1.7-8.2); BASOPHILS % (AUTO) 0.5 % (0-2); EOSINOPHILS % (AUTO) 2.5 % (0-6); HEMATOCRIT 41.1 % (36.0-47.0); LYMPHOCYTES % (AUTO) 31.6 % (13-45); MEAN CORPUSCULAR HEMOGLOBIN 28.4 pg (27.0-33.4); MEAN CORPUSCULAR HGB CONC 34.2 g/dL (32.0-36.0); MEAN CORPUSCULAR VOLUME 83 fl (80-97); MONOCYTES % (AUTO) 8.9 % (3-13); PLATELET COUNT 281 10^3/uL (150-450); RED BLOOD COUNT 4.95 10^6/uL (3.72-5.28); RED CELL DISTRIBUTION WIDTH 13.1 % (11.5-14.0); SEGMENTED NEUTROPHILS % (AUTO) 56.5 % (42-78); TOTAL CELLS COUNTED % (AUTO) 100 %; WHITE BLOOD COUNT 10.2 10^3/uL (4.0-10.5)
[2017-11-29 21:53] LABS: APPEARANCE,URINE SLIGHTLY-CLOUDY; BILIRUBIN,URINE NEGATIVE (NEGATIVE); COLOR,URINE STRAW; GLUCOSE, URINE NEGATIVE (NEGATIVE); KETONES,URINE NEGATIVE (NEGATIVE); LEUKOCYTE ESTERASE,URINE NEGATIVE (NEGATIVE); NITRITE,URINE NEGATIVE (NEGATIVE); PROTEIN,URINE NEGATIVE (NEGATIVE); URINE SPECIFIC GRAVITY 1.014; UROBILINOGEN,URINE NEGATIVE mg/dL (<2.0)
[2017-11-29 22:03] LABS: ALANINE AMINOTRANSFERASE 24 U/L (9-52); ALBUMIN 4.8 g/dL (3.5-5.0); ALKALINE PHOSPHATASE 78 U/L (38-126); ANION GAP 13 (5-19); ASPARTATE AMINO TRANSFERASE 19 U/L (14-36); BILIRUBIN,DIRECT 0.4 mg/dL (0.0-0.4); BILIRUBIN,TOTAL 0.6 mg/dL (0.2-1.3); BLOOD UREA NITROGEN 17 mg/dL (7-20); CARBON DIOXIDE 25 mmol/L (22-30); CHLORIDE 102 mmol/L (98-107); CREATINE KINASE 60 U/L (30-135); GLUCOSE 81 mg/dL (75-110); POTASSIUM 3.9 mmol/L (3.6-5.0); SODIUM 140.4 mmol/L (137-145); TOTAL PROTEIN 7.7 g/dL (6.3-8.2)
--- NOTE | 2017-11-30 00:44 | ER Document Report ---
ED General - General Chief Complaint: Headache Stated Complaint: VISION PROBLEMS Time Seen by Provider: 11/29/17 19:57 Mode of Arrival: Ambulatory Notes: Patient is 22-year-old female presents with complaint of having onset of flashing light in her left visual field. She said that lasted several minutes and went away and then she developed a headache. Headache is now since resolved. She denies any weakness or numbness associated with this. She says she has some chest tightness when she developed a headache. She does have history of hypertension. She says she did not take her hypertensive medications and that she was hypertensive when the symptoms occurred. She says since receiving her hypertensive medications her symptoms have resolved and she feels improved. She denies any focal weakness into her extremities. She denies any current chest pain and says that the chest tightness she had is completely resolved. She does not have a primary care doctor. She said she did just get her prescriptions filled yesterday for her blood pressure medications. She has no other complaints at this time. TRAVEL OUTSIDE OF THE [place] IN LAST 30 DAYS: No - Related Data Allergies/Adverse Reactions: No Known Allergies Allergy (Verified 11/29/17 19:23) Past Medical History - General Information source: Patient - Social History Smoking Status: Never Smoker Frequency of alcohol use: Social Drug Abuse: None Family History: None Patient has suicidal ideation: No Patient has homicidal ideation: No - Past Medical History Cardiac Medical History: Reports: Hx Hypertension Endocrine Medical History: Reports: Hx Diabetes Mellitus Type 2 Renal/ Medical History: Reports: Hx Ovarian Cysts. Denies: Hx Peritoneal Dialysis Psychiatric Medical History: Reports: Hx Anxiety Past Surgical History: Reports: Hx Genitourinary Surgery - D&C - Immunizations Immunizations up to date: Yes Hx Diphtheria, Pertussis, Tetanus Vaccination: Yes Review of Systems - Review of Systems Notes: My Normal Review Basic REVIEW OF SYSTEMS: CONSTITUTIONAL : Denies fever, chills, or sweats. Denies recent illness. EENT: Denies eye, ear, throat, or mouth pain or symptoms. Denies nasal or sinus congestion. CARDIOVASCULAR: Had chest pain. RESPIRATORY: Denies cough, cold, or chest congestion. Denies shortness of breath, difficulty breathing, or wheezing. GASTROINTESTINAL: Denies abdominal pain. Denies nausea, vomiting, or diarrhea. Denies constipation. Last BM: MUSCULOSKELETAL: Denies neck or back pain or joint pain or swelling. SKIN: Denies rash or skin lesions. NEUROLOGICAL: Denies altered mental status or loss of consciousness. Had a headache. Denies weakness or paralysis or loss of use of either side. Denies problems with gait or speech. Denies sensory or motor loss. ALL OTHER SYSTEMS REVIEWED AND NEGATIVE. Physical Exam - Vital signs Vitals: Temp Pulse Resp BP Pulse Ox 99.0 F 71 20 147/97 H 100 11/29/17 19:51 11/29/17 19:51 11/29/17 19:51 11/29/17 19:51 11/29/17 19:51 - Notes Notes: General Appearance: Well nourished, alert, cooperative, no acute distress, no obvious discomfort. Vitals: reviewed, See vital signs table. Head: no swelling or tenderness to the head Eyes: PERRL, EOMI, Conjuctiva clear. No evidence of papilledema on funduscopic exam of the left eye. Mouth: No decreasd moisture Neck: Supple, no neck tenderness, No thyromegaly Lungs: No wheezing, No rales, No rhonci, No accessory muscle use, good air exchange bilaterally. Heart: Normal rate, Regular rythm, No murmur, no rub Abdomen: Normal BS, soft, No rigidity, No abdominal tenderness, No guarding, no rebound, no abdominal masses, no organomegaly Extremities: strength 5/5 in all extremities, good pulses in all extremities, no swelling or tenderness in the extremities, no edema. Skin: warm, dry, appropriate color, no rash Neuro: speech clear, oriented x 3, normal affect, responds appropriately to questions. Cranial nerves II through XII are intact. Distal sensation intact. Patient moves all extremities without difficulty. Course - Re-evaluation Re-evalutation: 11/30/17 07:26 Appears that the patient's symptoms seem to be related to her hypertension being that her symptoms resolved with treatment of her hypertension. She says she did drop off her prescriptions at the pharmacy and will pick them up and start taking her hypertensive medications as prescribed. I talked her length about the importance of having a primary care doctor so that her blood pressure can be better controlled and closely watch. Patient agrees with this. I have given her a list of primary care doctors in the area. I strongly encouraged her return to ER immediately if she has sudden onset severe headache, weakness or numbness into extremities, chest pain, difficulty breathing, or she feels unwell. Patient agrees with plan will be discharged home. Dictation of this chart was performed using voice recognition software; therefore, there may be some unintended grammatical errors. - Vital Signs Vital signs: Temp Pulse Resp BP Pulse Ox 99.0 F 62 18 140/85 H 99 11/29/17 19:51 11/30/17 00:51 11/30/17 00:51 11/30/17 00:51 11/30/17 00:51 - Laboratory Result Diagrams: 11/29/17 21:31 11/29/17 21:31 Discharge - Discharge Clinical Impression: Headache Qualifiers: Headache type: unspecified Headache chronicity pattern: acute headache Intractability: not intractable Qualified Code(s): R51 - Headache Hypertension Qualifiers: Hypertension type: unspecified Qualified Code(s): I10 - Essential (primary) hypertension Condition: Good Disposition: HOME, SELF-CARE Instructions: Family Physicians / Practices Additional Instructions: Please take your blood pressure medications as prescribed. Your CT scan of your head was normal and your laboratory testing did not show any concerning findings. Please follow up closely with a primary care doctor to establish yourself so that your blood pressure can continued to be managed. I have included a list of local primary care physicians. please return to the ER immediately if you have recurrent worsening headaches, chest pain, difficulty breathing, visual changes, or if you feel unwell.
[2017-11-30 00:52] VITALS: BP 140/85
--- NOTE | 2017-11-30 09:29 | EKG REPORT ---
SEVERITY:- OTHERWISE NORMAL ECG - SINUS ARRHYTHMIA, RATE [id number] : Confirmed by: Katelin Bull 30-Nov-2017 09:28:04
== END 2017-11-30 00:51 | disposition home or self-care (01) ==
LOC: ER 19:11
DX: R51 Headache (principal); I10 Essential (primary) hypertension; H53.8 Other visual disturbances; Z79.899 Other long term (current) drug therapy
CPT/HCPCS: 36415; 70450; 71046; 80053; 81001; 82550; 84484; 84702; 85025; 87086; 93005; 93010; 99285

== ENCOUNTER → 2017-12-02 | Outpatient (CLI) | payer SELFPAY ==
[2017-12-02 14:49] LABS: ABSOLUTE BASOPHILS # (AUTO) 0.1 10^3/uL (0.0-0.2); ABSOLUTE EOSINOPHILS # (AUTO) 0.2 10^3/uL (0.0-0.6); ABSOLUTE LYMPHOCYTES (AUTO) 2.4 10^3/uL (0.5-4.7); ABSOLUTE MONOCYTES (AUTO) 0.7 10^3/uL (0.1-1.4); ABSOLUTE NEUT (AUTO) 4.6 10^3/uL (1.7-8.2); BASOPHILS % (AUTO) 0.6 % (0-2); EOSINOPHILS % (AUTO) 2.7 % (0-6); HEMATOCRIT 39.8 % (36.0-47.0); HEMOGLOBIN 13.8 g/dL (12.0-15.5); LYMPHOCYTES % (AUTO) 29.4 % (13-45); MEAN CORPUSCULAR HEMOGLOBIN 28.5 pg (27.0-33.4); MEAN CORPUSCULAR HGB CONC 34.7 g/dL (32.0-36.0); MEAN CORPUSCULAR VOLUME 82 fl (80-97); MONOCYTES % (AUTO) 9.1 % (3-13); PLATELET COUNT 269 10^3/uL (150-450); RED BLOOD COUNT 4.85 10^6/uL (3.72-5.28); RED CELL DISTRIBUTION WIDTH 13.3 % (11.5-14.0); SEGMENTED NEUTROPHILS % (AUTO) 58.2 % (42-78); TOTAL CELLS COUNTED % (AUTO) 100 %
[2017-12-02 15:13] LABS: ALANINE AMINOTRANSFERASE 24 U/L (9-52); ALBUMIN 4.5 g/dL (3.5-5.0); ALKALINE PHOSPHATASE 79 U/L (38-126); ANION GAP 11 (5-19); ASPARTATE AMINO TRANSFERASE 16 U/L (14-36); BILIRUBIN,DIRECT 0.4 mg/dL (0.0-0.4); BILIRUBIN,TOTAL 0.5 mg/dL (0.2-1.3); BLOOD UREA NITROGEN 16 mg/dL (7-20); CALCIUM 9.9 mg/dL (8.4-10.2); CARBON DIOXIDE 25 mmol/L (22-30); CHLORIDE 105 mmol/L (98-107); GLUCOSE 112 mg/dL (75-110); POTASSIUM 4.4 mmol/L (3.6-5.0); SODIUM 141.1 mmol/L (137-145); TOTAL PROTEIN 7.4 g/dL (6.3-8.2)
[2017-12-02 15:26] LABS: FREE T4 (FREE THYROXINE) 1.04 ng/dL (0.78-2.19)
[2017-12-02 15:40] LABS: THYROID STIMULATING HORMONE 1.78 uIU/mL (0.47-4.68)
== END ==
LOC: OD 13:39
PROVIDERS: ATTEND Internal Medicine
DX: I10 Essential (primary) hypertension (principal)
CPT/HCPCS: 36415; 80053; 84244; 84439; 84443; 85025

== ENCOUNTER 2018-10-01 16:07 | Emergency (ER) | payer SELFPAY ==
[2018-10-01 16:22] VITALS: BP 135/91
[2018-10-01] MEDS ORDERED: CETIRIZINE 10 MG TABLET PO ONE (16:52)
--- NOTE | 2018-10-01 16:54 | ER Document Report ---
HPI - HPI Patient complains to provider of: Left ear pain Time Seen by Provider: 10/01/18 16:36 Onset/Duration: Persistent Quality of pain: Achy Pain Level: 3 Context: Patient presents complaining of left ear pain for the past 10 days. Patient denies any fever or drainage. Patient complains of having a popping sensation in her left ear. Associated Symptoms: Earache. denies: Nonproductive cough, Productive cough, Fever, Sore throat Exacerbated by: Denies Relieved by: Denies Similar symptoms previously: No Recently seen / treated by doctor: No - ROS ROS below otherwise negative: Yes Systems Reviewed and Negative: Yes All other systems reviewed and negative - CONSTITUTIONAL Constitutional: DENIES: Fever, Chills - EENT EENT: REPORTS: Ear Pain - RESPIRATORY Respiratory: DENIES: Coughing - GASTROINTESTINAL Gastrointestinal: DENIES: Nausea, Patient vomiting - REPRODUCTIVE Reproductive: DENIES: : - MUSCULOSKELETAL Musculoskeletal: DENIES: Neck Pain - DERM Skin Color: Normal Skin Problems: None Past Medical History - General Information source: Patient - Social History Smoking Status: Never Smoker Frequency of alcohol use: None Drug Abuse: None Occupation: [employer] Family History: None - Past Medical History Cardiac Medical History: Reports: Hx Hypertension Renal/ Medical History: Reports: Hx Ovarian Cysts. Denies: Hx Peritoneal Dialysis Psychiatric Medical History: Reports: Hx Anxiety Past Surgical History: Reports: Hx Genitourinary Surgery - D&C - Immunizations Immunizations up to date: Yes Hx Diphtheria, Pertussis, Tetanus Vaccination: Yes Vertical Provider Document - CONSTITUTIONAL Agree With Documented VS: Yes Exam Limitations: No Limitations General Appearance: WD/WN, No Apparent Distress - INFECTION CONTROL TRAVEL OUTSIDE OF THE [place] IN LAST 30 DAYS: No - HEENT HEENT: Atraumatic, Normocephalic. negative: Pharyngeal Exudate, Pharyngeal Tenderness, Pharyngeal Erythema, Tympanic Membrane Red, Tympanic Membrane Bulging Notes: Left ear serous effusion, no mastoid tenderness or swelling - NECK Neck: Normal Inspection, Supple. negative: Lymphadenopathy-Left, Lymphadenopathy-Right - RESPIRATORY Respiratory: Breath Sounds Normal, No Respiratory Distress - CARDIOVASCULAR Cardiovascular: Regular Rate, Regular Rhythm, No Murmur - BACK Back: Normal Inspection - MUSCULOSKELETAL/EXTREMETIES Musculoskeletal/Extremeties: [place] - NEURO Level of Consciousness: Awake, Alert, Appropriate Motor/Sensory: No Motor Deficit, No Sensory Deficit - DERM Integumentary: Warm, Dry, No Rash Course - Vital Signs Vital signs: Temp Pulse Resp BP Pulse Ox 98.4 F 74 20 135/91 H 99 10/01/18 16:19 10/01/18 16:19 10/01/18 16:19 10/01/18 16:19 10/01/18 16:19 Discharge - Discharge Clinical Impression: Otalgia of left ear Left serous otitis media Qualifiers: Chronicity: acute Recurrence: not specified as recurrent Qualified Code(s): H65.02 - Acute serous otitis media, left ear Condition: Stable Disposition: HOME, SELF-CARE Instructions: Serous Otitis Media ([facility]) Additional Instructions: Return immediately for any new or worsening symptoms Followup with your primary care provider, call tomorrow to make a followup appointment You may take Coricidin HBP [id number] as directed to help with congestion symptoms Prescriptions: Cetirizine HCl [Zyrtec 10 mg Tablet] 1 tab PO DAILY PRN #30 tablet PRN Reason: Forms: Return to Work Referrals: JEROMY HAWTHORNE MD [Primary Care Provider] - Follow up as needed
== END 2018-10-01 17:02 | disposition home or self-care (01) ==
LOC: ER 16:07
DX: H65.02 Acute serous otitis media, left ear (principal); H92.02 Otalgia, left ear; I10 Essential (primary) hypertension
CPT/HCPCS: 99283

== ENCOUNTER 2019-10-28 18:28 | Emergency (ER) | payer MEDICAID ==
--- NOTE | 2019-10-28 18:50 | ER Document Report ---
ED Medical Screen (RME) - General Chief Complaint: Abdominal Pain Stated Complaint: ABDOMINAL PAIN/URINARY PROBLEM Time Seen by Provider: 10/28/19 18:45 Primary Care Provider: JEROMY HAWTHORNE MD [Primary Care Provider] - Follow up as needed TRAVEL OUTSIDE OF THE [place] IN LAST 30 DAYS: No - HPI Notes: 10/28/19 18:49 Patient is a 24-year-old female with no significant past medical history or surgical history to her abdomen who presents complaining of lower abdominal cramping that is been relatively constant for the past week and a half and darker colored urine. Patient states that she does have vaginal odor with some clear discharge. No fever. No nausea or vomiting. No diarrhea. I have treated and performed a rapid initial assessment of this patient. A comprehensive ED assessment and evaluation of the patient, analysis of test results and completion of medical decision making process will be conducted by additional ED providers. PHYSICAL EXAMINATION: GENERAL: Well-appearing, well-nourished and in no acute distress. A&Ox4. Answers questions appropriately. Abdomen: Limited exam in triage, but grossly nontender and without CVA tenderness. - Related Data Allergies/Adverse Reactions: No Known Allergies Allergy (Verified 10/28/19 18:44) Past Medical History - Past Medical History Cardiac Medical History: Reports: Hx Hypertension Endocrine Medical History: Reports: Hx Diabetes Mellitus Type 2 Renal/ Medical History: Reports: Hx Ovarian Cysts. Denies: Hx Peritoneal Dialysis Psychiatric Medical History: Reports: Hx Anxiety Past Surgical History: Reports: Hx Genitourinary Surgery - D&C - Immunizations Immunizations up to date: Yes Hx Diphtheria, Pertussis, Tetanus Vaccination: Yes Doctor's Discharge - Discharge Referrals: JEROMY HAWTHORNE MD [Primary Care Provider] - Follow up as needed
[2019-10-28 19:23] LABS: ABSOLUTE BASOPHILS # (AUTO) 0.1 10^3/uL (0.0-0.2); ABSOLUTE EOSINOPHILS # (AUTO) 0.2 10^3/uL (0.0-0.6); ABSOLUTE LYMPHOCYTES (AUTO) 2.6 10^3/uL (0.5-4.7); ABSOLUTE MONOCYTES (AUTO) 0.7 10^3/uL (0.1-1.4); ABSOLUTE NEUT (AUTO) 5.3 10^3/uL (1.7-8.2); BASOPHILS % (AUTO) 0.6 % (0-2); EOSINOPHILS % (AUTO) 2.6 % (0-6); HEMOGLOBIN 13.8 g/dL (12.0-15.5); LYMPHOCYTES % (AUTO) 29.6 % (13-45); MEAN CORPUSCULAR HEMOGLOBIN 29.1 pg (27.0-33.4); MEAN CORPUSCULAR HGB CONC 34.5 g/dL (32.0-36.0); MEAN CORPUSCULAR VOLUME 84 fl (80-97); MONOCYTES % (AUTO) 7.9 % (3-13); PLATELET COUNT 269 10^3/uL (150-450); RED BLOOD COUNT 4.74 10^6/uL (3.72-5.28); RED CELL DISTRIBUTION WIDTH 13.1 % (11.5-14.0); SEGMENTED NEUTROPHILS % (AUTO) 59.3 % (42-78); TOTAL CELLS COUNTED % (AUTO) 100 %; WHITE BLOOD COUNT 8.9 10^3/uL (4.0-10.5)
[2019-10-28 19:42] LABS: ALBUMIN 4.7 g/dL (3.5-5.0); ALKALINE PHOSPHATASE 79 U/L (38-126); ANION GAP 10 (5-19); ASPARTATE AMINO TRANSFERASE 20 U/L (14-36); BILIRUBIN,DIRECT 0.1 mg/dL (0.0-0.4); BILIRUBIN,TOTAL 0.7 mg/dL (0.2-1.3); BLOOD UREA NITROGEN 17 mg/dL (7-20); CALCIUM 9.8 mg/dL (8.4-10.2); CARBON DIOXIDE 26 mmol/L (22-30); CHLORIDE 104 mmol/L (98-107); GLUCOSE 90 mg/dL (75-110); POTASSIUM 4.4 mmol/L (3.6-5.0); TOTAL PROTEIN 7.9 g/dL (6.3-8.2)
--- NOTE | 2019-10-28 20:33 | ER Document Report ---
ED GI/ - General Chief Complaint: Abdominal Cramping Stated Complaint: ABDOMINAL PAIN/URINARY PROBLEM Time Seen by Provider: 10/28/19 18:45 Primary Care Provider: JEROMY HAWTHORNE MD [Primary Care Provider] - Follow up as needed Mode of Arrival: Ambulatory Information source: Patient Notes: 24-year-old female presents to ED for complaint of suprapubic/pelvic pain for the last week and a half with dark greenish colored urine. She states she does not have any vaginal bleeding but she does have some clear-colored vaginal discharge with an odor. She denies any fever nausea vomiting or diarrhea. States she does have a history of PCOS. She is alert oriented respirations regular nonlabored speaking in full sentences. TRAVEL OUTSIDE OF THE [place] IN LAST 30 DAYS: No - HPI Patient complains to provider of: Pelvic pain, Vaginal discharge Onset: Other - Week and a half Timing/Duration: Persistent Quality of pain: Cramping Severity at maximum: Moderate Severity in ED: Moderate Pain Level: 3 Location: Pelvis Vaginal bleeding (Compared to normal period): None Associated symptoms: Other - Vaginal odor with clear discharge, green-colored urine Exacerbated by: Denies Relieved by: Denies Similar symptoms previously: Yes Recently seen / treated by doctor: No - Related Data Allergies/Adverse Reactions: No Known Allergies Allergy (Verified 10/28/19 18:44) Past Medical History - General Information source: Patient - Social History Smoking Status: Former Smoker Frequency of alcohol use: None Drug Abuse: None Family History: None Patient has suicidal ideation: No Patient has homicidal ideation: No - Past Medical History Cardiac Medical History: Reports: Hx Hypertension Pulmonary Medical History: Reports: None EENT Medical History: Reports: None Neurological Medical History: Reports: None Endocrine Medical History: Reports: Hx Diabetes Mellitus Type 2 Renal/ Medical History: Reports: Hx Ovarian Cysts Malignancy Medical History: Reports: None GI Medical History: Reports: None Musculoskeletal Medical History: Reports None Skin Medical History: Reports None Psychiatric Medical History: Reports: Hx Anxiety Traumatic Medical History: Reports: None Infectious Medical History: Reports: None Past Surgical History: Reports: Hx Genitourinary Surgery - D&C - Immunizations Immunizations up to date: Yes Hx Diphtheria, Pertussis, Tetanus Vaccination: Yes Review of Systems - Review of Systems Constitutional: No symptoms reported EENT: No symptoms reported Cardiovascular: No symptoms reported Respiratory: No symptoms reported Gastrointestinal: No symptoms reported Genitourinary: Other - Greenish dark yellow urine Female Genitourinary: Vaginal discharge - With foul odor Musculoskeletal: No symptoms reported Skin: No symptoms reported Hematologic/Lymphatic: No symptoms reported Neurological/Psychological: No symptoms reported -: Yes All other systems reviewed and negative Physical Exam - Vital signs Vitals: Temp Pulse BP Pulse Ox 98.3 F 83 136/97 H 98 10/28/19 18:51 10/28/19 18:51 10/28/19 18:51 10/28/19 18:51 Interpretation: Normal - General General appearance: Appears well, Alert - HEENT Head: Normocephalic, Atraumatic Eyes: Normal Pupils: PERRL - Respiratory Respiratory status: No respiratory distress Chest status: Nontender Breath sounds: Normal Chest palpation: Normal - Cardiovascular Rhythm: Regular Heart sounds: Normal auscultation Murmur: No - Abdominal Inspection: Normal Distension: No distension Bowel sounds: Normal Tenderness: Nontender Organomegaly: No organomegaly - Genitourinary External exam: Normal Speculum exam: Normal Vaginal bleeding: Mild Bimanuel exam: Normal - Back Back: Normal, Nontender - Extremities General upper extremity: Normal inspection, Nontender, Normal color, Normal ROM, Normal temperature General lower extremity: Normal inspection, Nontender, Normal color, Normal ROM, Normal temperature, Normal weight bearing. No: Fidel's sign - Neurological Neuro grossly intact: Yes Cognition: Normal Orientation: AAOx4 Ramiro Coma Scale Eye Opening: Spontaneous [place] Coma Scale Verbal: Oriented [place] Coma Scale Motor: Obeys Commands Ramiro Coma Scale Total: 15 Speech: Normal Motor strength normal: LUE, RUE, LLE, RLE Sensory: Normal - Psychological Associated symptoms: Normal affect, Normal mood - Skin Skin Temperature: Warm Skin Moisture: Dry Skin Color: Normal Course - Re-evaluation Re-evalutation: 10/28/19 23:04 All lab results discussed with patient and written report of labs given to patient. Patient did have very minimal bleeding from her cervix. She was instructed she may be getting ready to start her. She states that it is time for her.. Patient was treated with azithromycin and Rocephin and she did not want to wait for the results of her GC and chlamydia as she stated they could possibly be positive. Patient was discharged home with instructions to call is on Wednesday to the culture line or me tomorrow after 8 PM for her results of her GC and chlamydia. - Vital Signs Vital signs: Temp Pulse Resp BP Pulse Ox 98.7 F 89 16 145/93 H 98 10/28/19 22:24 10/28/19 22:24 10/28/19 22:24 10/28/19 22:24 10/28/19 22:24 - Laboratory Result Diagrams: 10/28/19 19:00 10/28/19 19:00 Laboratory results interpreted by me: 10/28/19 20:17 Urine Ketones 20 H Leukocyte Esterase Rfl TRACE H Discharge - Discharge Clinical Impression: Pelvic pain Condition: Stable Disposition: HOME, SELF-CARE Additional Instructions: PELVIC PAIN: There are many causes of pain in the pelvic area. The cause could be the tubes, ovaries, uterus, intestines, appendix, pelvic muscles and connective tissue, or the urinary tract. The cause of your pelvic pain is not clear. However, it seems safe to treat you outside the hospital. If the pain sounds like a temporary problem, we sometimes wait to see if it goes away. Other patients may need additional tests, such as pelvic ultrasound or cultures. Conditions may change. Call us or come back for reexamination if any problems occur, such as: (1) Pain that becomes more severe, steady, or becomes concentrated in one specific area. Also, pain that is more severe with movement or coughing. (2) Vomiting that persists or becomes more frequent. (3) Blood in the vomitus, urine, or bowel movements. Blood in the stool may have a tarry or black appearance. (4) Shaking chills or fever greater than 100 degrees. (5) The abdomen becomes more distended or swollen. (6) Bowel movements cease. (7) Heavy vaginal bleeding. CEPHALOSPORINS: An antibiotic of the cephalosporin class has been prescribed. This type of antibiotic covers a wide variety of infections, including those of the skin, lungs, middle ear, and urinary tract. This antibiotic is somewhat similar to the penicillin family. In rare cases, a person who is allergic to penicillin will also be allergic to this medication. If you have had a severe allergic reaction to penicillin, and have not taken this antibiotic since that time, notify your doctor. Antibiotics which cover many germs ("broad spectrum" antibiotics) are more likely to cause diarrhea or "yeast" infections. Women prone to vaginal yeast problems may suffer an attack after taking this antibiotic. In infants, oral thrush (white spots "stuck" on the cheek) or yeast diaper rash may result. See your doctor if these problems occur. Call the doctor at once if you develop hives, itching, shortness of breath, or lightheadedness. AZITHROMYCIN: Azithromycin (Zithromax) is a broad spectrum antibiotic in the same class as erythromycin. It can treat a variety of bacterial infections, but is most frequently used for respiratory infections. Azithromycin is extremely long-lasting. It accumulates in body tissues and continues to kill bacteria for many days. In order to improve absorption, Azithromycin should be taken at least one hour before or two hours after a meal. It does not have the same strong tendency to upset the stomach as erythromycin and is usually very well tolerated. Patients who have had a rash or other true allergic reactions to erythromycin should not take this medication. Call if you develop gastrointestinal distress, severe diarrhea, rash, hives, itching, or shortness of breath. FOLLOW-UP CARE: If you have been referred to a physician for follow-up care, call the physicians office for an appointment as you were instructed or within the next two days. If you experience worsening or a significant change in your symptoms, notify the physician immediately or return to the Emergency Department at any time for re-evaluation. Forms: Elevated Blood Pressure, Return to Work Referrals: JEROMY HAWTHORNE MD [Primary Care Provider] - Follow up as needed
[2019-10-28 20:39] LABS: APPEARANCE,URINE CLEAR; BILIRUBIN,URINE NEGATIVE (NEGATIVE); COLOR,URINE YELLOW; GLUCOSE, URINE NEGATIVE (NEGATIVE); KETONES,URINE 20 mg/dL (NEGATIVE); PROTEIN,URINE NEGATIVE (NEGATIVE); URINE SPECIFIC GRAVITY 1.025; UROBILINOGEN,URINE NEGATIVE mg/dL (<2.0)
[2019-10-28 20:46] LABS: EPITHELIALS (WET MOUNT) 3+ EPITHELIALS SEEN; RBCS (WET MOUNT) FEW RBCS SEEN; T.VAGINALIS (WET MOUNT) NO TRICHOMONAS SEEN; WBCS (WET MOUNT) FEW WBCS SEEN; YEAST (WET MOUNT) NO YEAST SEEN
[2019-10-28] MEDS ORDERED: CEFTRIAXONE INJ 250 MG VIAL IM ONE (22:06)
[2019-10-28] MEDS ORDERED: AZITHROMYCIN 250 MG TABLET PO ONE (22:06)
[2019-10-28] MEDS ORDERED: LIDOCAINE 1% INJ-PF (10 MG/ML) 30 ML SDV INJ ONE (22:06)
[2019-10-28 22:10] LABS: CHLAM PCR NOT DETECTED (NOT DETECT)
[2019-10-28 22:27] VITALS: BP 145/93
== END 2019-10-28 22:41 | disposition home or self-care (01) ==
LOC: ER 18:28
DX: R10.2 Pelvic and perineal pain (principal); R39.198 Other difficulties with micturition; R10.30 Lower abdominal pain, unspecified; N89.8 Other specified noninflammatory disorders of vagina; I10 Essential (primary) hypertension; E11.9 Type 2 diabetes mellitus without complications; Z87.891 Personal history of nicotine dependence
CPT/HCPCS: 99284; 96372; 36415; 87086; 87210; 85025; 81025; 87088; 80053; 81001; 87491; 87591; Q0144; J3490; J0696

== ENCOUNTER 2019-12-14 14:25 | Observation (INO) | payer OTHER, MEDICAID ==
--- NOTE | 2019-12-14 14:57 | ER Document Report ---
ED Medical Screen (RME) - General Chief Complaint: Direct Admit/Private MD Stated Complaint: LEFT SIDED CHEST PAIN/DIRECT ADMIT Time Seen by Provider: 12/14/19 14:52 Primary Care Provider: JEROMY HAWTHORNE MD [Primary Care Provider] - Follow up as needed TRAVEL OUTSIDE OF THE [place] IN LAST 30 DAYS: No - HPI Notes: 12/14/19 14:57 Patient is a 24-year-old female with a history of borderline diabetes and high blood pressure who presents as a direct admit for Dr. Hawthorne for chest pain and headache since Wednesday. She presents with orders from Dr. Hawthorne as well. I have treated and performed a rapid initial assessment of this patient. A comprehensive ED assessment and evaluation of the patient, analysis of test results and completion of medical decision making process will be conducted by additional ED providers. PHYSICAL EXAMINATION: GENERAL: Well-appearing, well-nourished and in no acute distress. A&Ox4. Answers questions appropriately. - Related Data Allergies/Adverse Reactions: No Known Allergies Allergy (Verified 10/28/19 18:44) Past Medical History - Past Medical History Cardiac Medical History: Reports: Hx Hypertension Endocrine Medical History: Reports: Hx Diabetes Mellitus Type 2 Renal/ Medical History: Reports: Hx Ovarian Cysts. Denies: Hx Peritoneal Dialysis Psychiatric Medical History: Reports: Hx Anxiety Past Surgical History: Reports: Hx Genitourinary Surgery - D&C - Immunizations Immunizations up to date: Yes Hx Diphtheria, Pertussis, Tetanus Vaccination: Yes Physical Exam - Vital signs Vitals: Temp Pulse Resp BP Pulse Ox 98.4 F 85 18 151/97 H 100 12/14/19 14:34 12/14/19 14:34 12/14/19 14:34 12/14/19 14:34 12/14/19 14:34 Course - Vital Signs Vital signs: Temp Pulse Resp BP Pulse Ox 98.4 F 85 18 151/97 H 100 12/14/19 14:34 12/14/19 14:34 12/14/19 14:34 12/14/19 14:34 12/14/19 14:34 Doctor's Discharge - Discharge Referrals: JEROMY HAWTHORNE MD [Primary Care Provider] - Follow up as needed
[2019-12-14 16:02] LABS: ABSOLUTE BASOPHILS # (AUTO) 0.1 10^3/uL (0.0-0.2); ABSOLUTE EOSINOPHILS # (AUTO) 0.3 10^3/uL (0.0-0.6); ABSOLUTE MONOCYTES (AUTO) 0.8 10^3/uL (0.1-1.4); ABSOLUTE NEUT (AUTO) 5.5 10^3/uL (1.7-8.2); BASOPHILS % (AUTO) 0.6 % (0-2); EOSINOPHILS % (AUTO) 2.7 % (0-6); HEMOGLOBIN 15.2 g/dL (12.0-15.5); LYMPHOCYTES % (AUTO) 31.3 % (13-45); MEAN CORPUSCULAR HEMOGLOBIN 28.6 pg (27.0-33.4); MEAN CORPUSCULAR HGB CONC 33.8 g/dL (32.0-36.0); MEAN CORPUSCULAR VOLUME 85 fl (80-97); MONOCYTES % (AUTO) 8.5 % (3-13); PLATELET COUNT 331 10^3/uL (150-450); RED BLOOD COUNT 5.32 10^6/uL (3.72-5.28); RED CELL DISTRIBUTION WIDTH 13.2 % (11.5-14.0); SEGMENTED NEUTROPHILS % (AUTO) 56.9 % (42-78); TOTAL CELLS COUNTED % (AUTO) 100 %; WHITE BLOOD COUNT 9.6 10^3/uL (4.0-10.5)
[2019-12-14 16:29] LABS: ALBUMIN 4.8 g/dL (3.5-5.0); ALKALINE PHOSPHATASE 76 U/L (38-126); ANION GAP 10 (5-19); ASPARTATE AMINO TRANSFERASE 24 U/L (14-36); BILIRUBIN,TOTAL 0.8 mg/dL (0.2-1.3); BLOOD UREA NITROGEN 17 mg/dL (7-20); C-REACTIVE PROTEIN < 5.0 mg/L (<10.0); CALCIUM 10.1 mg/dL (8.4-10.2); CARBON DIOXIDE 27 mmol/L (22-30); CHLORIDE 105 mmol/L (98-107); CREATINE KINASE 60 U/L (30-135); GLUCOSE 110 mg/dL (75-110); POTASSIUM 4.4 mmol/L (3.6-5.0); TOTAL PROTEIN 8.3 g/dL (6.3-8.2)
[2019-12-14 16:38] LABS: CREATINE KINASE MB < 0.22 ng/mL (<4.55); TROPONIN I < 0.012 ng/mL
[2019-12-14 16:43] LABS: ERYTHROCYTE SEDIMENTATION RATE 18 mm/hr (0-20)
--- NOTE | 2019-12-14 18:00 | RADIOLOGY REPORT (SQ) ---
EXAM DESCRIPTION: CTA CHEST COMPLETED DATE/TIME: 12/14/2019 5:04 pm REASON FOR STUDY: chest pain COMPARISON: None. TECHNIQUE: CT scan of the chest performed using helical scanning technique with dynamic intravenous contrast injection. Images reviewed with lung, soft tissue and bone windows. Reconstructed coronal and sagittal MPR images reviewed. Additional 3 dimensional post-processing performed to develop Maximal Intensity Projection images (AR P). All images stored on PACS. All CT scanners at this facility use dose modulation, iterative reconstruction, and/or weight based d osing when appropriate to reduce radiation dose to as low as reasonably achievable (ALARA). [facility]: Dose Right [facility]: CareDose [facility]: Dose Right [facility]: Teradose 4D [facility]: Platter CONTRAST TYPE AND DOSE: contrast/concentration: Isovue 350.00 mg/ml; Total Contrast Delivered: 61.0 ml; Total Saline Delivered: 80.0 ml Contrast bolus adequate for pulmonary arteries and aorta. RENAL FUNCTION: BUN 17 creatinine 0.64 RADIATION DOSE: CT Rad equipment meets quality standard of care and radiation dose reduction techniq ues were employed. CTDIvol: 9.9 - 15.9 mGy. DLP: 565 mGy-cm. . LIMITATIONS: Opacification of the pulmonary arteries she was less than optimal. FINDINGS: LUNGS AND PLEURA: No masses, infiltrates, or pneumothorax. No pleural effusions or pleura l calcifications. AORTA AND GREAT VESSELS: No aneurysm. No dissection. HEART: No pericardial effusion. No significant coronary artery calcifications. PULMONARY ARTERIES: No obvious emboli in the main pulmonary arteries or major branches. HILAR AND MEDIASTINAL STRUCTURES: No identified masses or abnormal nodes. HARDWARE: None in the chest. UPPER ABDOMEN: No significant findings. Limited exam. THYROID AND OTHER SOFT TISSUES: No masses. No adenopathy. BONES: No acute or significant finding. 3D MIPS: Confirm above findings. OTHER: No other significant finding. IMPRESSION: There is no obvious pulmonary embolus in this slightly limited study as described. Ther e is no aortic aneurysm or dissection. No acute findings are present in the thorax. COMMENT: Quality ID # [id number]: Final reports with documentation of one or more dose reduction techniques (e.g., Automated exposure control, adjustment of the mA and/or kV according to patient size, use of iterative reconstruction technique) TECHNICAL DOCUMENTATION: JOB ID: [id number] 2010 [employer]- All Rights Reserved Reading location - IP/workstation name: [email or web address]
[2019-12-14] MEDS: 1/2 NORMAL SALINE 1,000 ML IV PRN (18:26)
--- NOTE | 2019-12-14 18:35 | RADIOLOGY REPORT (SQ) ---
EXAM DESCRIPTION: MRI HEAD WITHOUT COMPLETED DATE/TIME: 12/14/2019 5:49 pm REASON FOR STUDY: headache COMPARISON: None. TECHNIQUE: Multiplanar imaging includes non-contrasted T1, T2, FLAIR, and diffusion with ADC map seq uences. Images stored on PACS. LIMITATIONS: None. FINDINGS: ANATOMY: No anomalies. Normal vascular flow voids. Pituitary fossa normal. CSF SPACES: Normal in size and contour. No hemorrhage. CEREBRUM: Sulci and gyri normal in size and contour. Normal white matter signal on FLAIR imaging. No evidence of hemorrhage, mass, or extraaxial fluid collection. POSTERIOR FOSSA: No signal alteration. No hemorrhage. No edema, masses or mass effect. Internal saima tory canals, cerebello-pontine angles, mastoids normal. DIFFUSION IMAGING: Negative for acute or sub-acute infarction. ORBITS: No masses. Globes normal. PARANASAL SINUSES: No fluid levels. Mucosa normal. OTHER: No other significant finding. IMPRESSION: NORMAL MRI OF THE BRAIN WITHOUT INTRAVENOUS GADOLINIUM CONTRAST. EVIDENCE OF ACUTE STROKE: NO. TECHNICAL DOCUMENTATION: JOB ID: [id number] 2010 [employer]- All Rights Reserved Reading location - IP/workstation name: [email or web address]
--- NOTE | 2019-12-14 19:42 | EKG REPORT ---
SEVERITY:- NORMAL ECG - SINUS RHYTHM : Confirmed by: Valerie Jay MD 14-Dec-2019 19:41:30
[2019-12-14] MEDS ORDERED: HYDROMORPHONE HCL INJ/PF 2 MG/ML AMPULE IV PRN (19:51)
--- NOTE | 2019-12-14 21:24 | PDOC H&P ---
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 In the office a 12-lead EKG was done which was sinus rhythm there was no acute ST T wave segment change patient was concerned about her symptoms she will be admitted for evaluation, she was admitted directly from the office to the hospital for evaluation of her symptoms, CT angiogram of the chest was obtained, it was negative for pulmonary embolism there was no neoplasm there was no pneumonia. MRI of the brain was obtained it was normal. She was reassured she was given fluid therapy Past Medical History Cardiac Medical History: Reports: Hypertension Social History Smoking Status: Never Smoker Electronic Cigarette use?: No Family History Family History: None Parental Family History Reviewed: Yes Children Family History Reviewed: Yes Sibling(s) Family History Reviewed.: Yes Medication/Allergy Home Medications: RX: Amlodipine Besylate [Norvasc 5 mg Tablet] 5 mg PO DAILY #30 tablet 11/28/17 Concerta 27mg 27 mg PO DAILY 12/14/19 RX: Multivitamin [Child Chew Vitamin] 2 each PO DAILY 12/14/19 Allergies/Adverse Reactions: No Known Allergies Allergy (Verified 12/14/19 15:09) Review of Systems Constitutional: PRESENT: headache(s). ABSENT: chills, fever(s), weight gain, weight loss Eyes: ABSENT: visual disturbances Ears: ABSENT: hearing changes Cardiovascular: PRESENT: chest pain. ABSENT: dyspnea on exertion, edema, orthropnea, palpitations Respiratory: ABSENT: cough, hemoptysis Gastrointestinal: ABSENT: abdominal pain, constipation, diarrhea, hematemesis, hematochezia, nausea, vomiting Genitourinary: ABSENT: dysuria, hematuria Musculoskeletal: ABSENT: joint swelling Integumentary: ABSENT: rash, wounds Neurological: ABSENT: abnormal gait, abnormal speech, confusion, dizziness, focal weakness, syncope Psychiatric: ABSENT: anxiety, depression, homidical ideation, suicidal ideation Endocrine: ABSENT: cold intolerance, heat intolerance, menstrual abnormalities, polydipsia, polyuria Hematologic/Lymphatic: ABSENT: easy bleeding, easy bruising, lymphadenopathy Physical Exam Vital Signs: Temp Pulse Resp BP Pulse Ox 97.9 F 83 12 145/84 H 100 12/14/19 18:25 12/14/19 18:25 12/14/19 20:00 12/14/19 18:25 12/14/19 20:00 Intake & Output 12/13/19 12/14/19 12/15/19 06:59 06:59 06:59 Weight 83.2 kg General appearance: PRESENT: no acute distress, well-developed, well-nourished Head exam: PRESENT: atraumatic, normocephalic Eye exam: PRESENT: conjunctiva pink, EOMI, PERRLA Ear exam: PRESENT: normal external ear exam Mouth exam: PRESENT: moist, tongue midline Neck exam: PRESENT: full ROM Respiratory exam: PRESENT: clear to auscultation jensen Cardiovascular exam: PRESENT: RRR, +S1, +S2 Pulses: PRESENT: normal dorsalis pedis pul, +2 pedal pulses bilateral Vascular exam: PRESENT: normal capillary refill GI/Abdominal exam: PRESENT: normal bowel sounds, soft Rectal exam: PRESENT: deferred Neurological exam: PRESENT: alert, awake, oriented to person, oriented to place, oriented to time, oriented to situation, CN II-XII grossly intact Psychiatric exam: PRESENT: appropriate affect, normal mood Skin exam: PRESENT: dry, intact, warm Results Laboratory Results: 12/14/19 15:40 12/14/19 15:40 12/14/19 12/14/19 15:40 15:40 WBC 9.6 RBC 5.32 H Hgb 15.2 Hct 45.0 MCV 85 MCH 28.6 MCHC 33.8 RDW 13.2 Plt Count 331 Seg Neutrophils % 56.9 Sodium 141.7 Potassium 4.4 Chloride 105 Carbon Dioxide 27 Anion Gap 10 BUN 17 Creatinine 0.64 Est GFR ( Amer) > 60 Glucose 110 Calcium 10.1 Total Bilirubin 0.8 AST 24 Alkaline Phosphatase 76 C-Reactive Protein < 5.0 Total Protein 8.3 H Albumin 4.8 12/14/19 12/14/19 15:40 15:40 Creatine Kinase 60 CK-MB (CK-2) < 0.22 Troponin I < 0.012 Impressions: Chest/Abdomen CTA 12/14/19 00:00 IMPRESSION: There is no obvious pulmonary embolus in this slightly limited study as described. There is no aortic aneurysm or dissection. No acute findings are present in the thorax. Head MRI 12/14/19 00:00 IMPRESSION: NORMAL MRI OF THE BRAIN WITHOUT INTRAVENOUS GADOLINIUM CONTRAST. EVIDENCE OF ACUTE STROKE: NO. Assessment & Plan - Diagnosis (1) Headache, paroxysmal hemicrania, episodic Qualifiers: Intractability: not intractable Qualified Code(s): G44.039 - Episodic paroxysmal hemicrania, not intractable Is this a current diagnosis for this admission?: Yes Plan: She probably has migraine headache, MRI of the brain was negative, she was subsequently headache free (2) Chest pain Qualifiers: Chest pain type: unspecified Qualified Code(s): R07.9 - Chest pain, unspecified Is this a current diagnosis for this admission?: Yes Plan: She probably has chest wall pain
[2019-12-14] MEDS ORDERED: CONCERTA 27 MG PO SCH (21:30)
[2019-12-14] MEDS ORDERED: MULTIVITAMIN PO SCH (21:30)
[2019-12-14] MEDS: AMLODIPINE BESYLATE 5 MG TABLET PO SCH (22:22)
[2019-12-14 23:06] LABS: CREATINE KINASE MB < 0.22 ng/mL (<4.55); TROPONIN I < 0.012 ng/mL
[2019-12-15 06:43] LABS: CREATINE KINASE MB < 0.22 ng/mL (<4.55); TROPONIN I < 0.012 ng/mL
[2019-12-15] MEDS ORDERED: MULTIVITAMINS W-IRON TABLET, CHEWABLE PO SCH (10:00)
[2019-12-15] MEDS: AMLODIPINE BESYLATE 5 MG TABLET PO SCH (11:02)
[2019-12-15] MEDS ORDERED: ACETAMINOPHEN 325 MG TABLET ONE (14:25)
[2019-12-15] MEDS ORDERED: ACETAMINOPHEN 325 MG TABLET PO PRN (14:44)
[2019-12-15] MEDS: 1/2 NORMAL SALINE 1,000 ML IV PRN (17:25)
[2019-12-15 20:09] VITALS: BP 123/77
--- NOTE | 2019-12-15 21:49 | PDOC DISCHARGE SUMMARY ---
Impression - Admit/DC Date/PCP Admission Date/Primary Care Provider: 12/14/19 16:53 JEROMY HAWTHORNE MD Discharge Date: 12/15/19 - Discharge Diagnosis (1) Headache, paroxysmal hemicrania, episodic Is this a current diagnosis for this admission?: Yes (2) Chest pain Is this a current diagnosis for this admission?: Yes - Additional Information Discharge Diet: Cardiac Referrals: JEROMY HAWTHORNE MD [Primary Care Provider] - Follow up as needed Home Medications: RX: Amlodipine Besylate [Norvasc 5 mg Tablet] 5 mg PO DAILY #30 tablet 11/28/17 Concerta 27mg 27 mg PO DAILY 12/14/19 RX: Multivitamin [Child Chew Vitamin] 2 each PO DAILY 12/14/19 History of Present Illiness History of Present Illness: VENU MCCLAIN is a 24 year old female,She came to the office for evaluation of left hemicranial headache chest pain with shortness of breath, she was very concerned, 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 In the office a 12-lead EKG was done which was sinus rhythm there was no acute ST T wave segment change patient was concerned about her symptoms she will be admitted for evaluation, she was admitted directly from the office to the hospital for evaluation of her symptoms, CT angiogram of the chest was obtained, it was negative for pulmonary embolism there was no neoplasm there was no pneumonia. MRI of the brain was obtained it was normal. She was reassured she was given fluid therapy Hospital Course Hospital Course: She was admitted for the management of hemicranial headache, chest pain, MRI brain negative, she was treated with IV fluid with resolution of symptoms, CT angiogram of the chest negative for PE she probably has chest wall pain Physical Exam Vital Signs: Temp Pulse Resp BP Pulse Ox 97.6 F 84 18 123/77 99 12/15/19 20:15 12/15/19 20:15 12/15/19 20:15 12/15/19 20:15 12/15/19 20:15 Intake & Output 12/14/19 12/15/19 12/16/19 06:59 06:59 06:59 Intake Total 317 923 Balance 317 923 Weight 83.2 kg General appearance: PRESENT: no acute distress Eye exam: PRESENT: PERRLA Respiratory exam: PRESENT: clear to auscultation jensen Cardiovascular exam: PRESENT: +S1, +S2 GI/Abdominal exam: PRESENT: soft Neurological exam: PRESENT: alert, CN II-XII grossly intact Results Laboratory Results: WBC 9.6 10^3/uL (4.0-10.5) 12/14/19 15:40 RBC 5.32 10^6/uL (3.72-5.28) H 12/14/19 15:40 Hgb 15.2 g/dL (12.0-15.5) 12/14/19 15:40 Hct 45.0 % (36.0-47.0) 12/14/19 15:40 MCV 85 fl (80-97) 12/14/19 15:40 MCH 28.6 pg (27.0-33.4) 12/14/19 15:40 MCHC 33.8 g/dL (32.0-36.0) 12/14/19 15:40 RDW 13.2 % (11.5-14.0) 12/14/19 15:40 Plt Count 331 10^3/uL (150-450) 12/14/19 15:40 Lymph % (Auto) 31.3 % (13-45) 12/14/19 15:40 Kingfisher % (Auto) 8.5 % (3-13) 12/14/19 15:40 Eos % (Auto) 2.7 % (0-6) 12/14/19 15:40 Baso % (Auto) 0.6 % (0-2) 12/14/19 15:40 Absolute Neuts (auto) 5.5 10^3/uL (1.7-8.2) 12/14/19 15:40 Absolute Lymphs (auto) 3.0 10^3/uL (0.5-4.7) 12/14/19 15:40 Absolute Monos (auto) 0.8 10^3/uL (0.1-1.4) 12/14/19 15:40 Absolute Eos (auto) 0.3 10^3/uL (0.0-0.6) 12/14/19 15:40 Absolute Basos (auto) 0.1 10^3/uL (0.0-0.2) 12/14/19 15:40 Seg Neutrophils % 56.9 % (42-78) 12/14/19 15:40 ESR 18 mm/hr (0-20) 12/14/19 15:40 D-Dimer < 0.27 ug/mL (0.00-0.50) 12/14/19 15:40 Sodium 141.7 mmol/L (137-145) 12/14/19 15:40 Potassium 4.4 mmol/L (3.6-5.0) 12/14/19 15:40 Chloride 105 mmol/L (98-107) 12/14/19 15:40 Carbon Dioxide 27 mmol/L (22-30) 12/14/19 15:40 Anion Gap 10 (5-19) 12/14/19 15:40 BUN 17 mg/dL (7-20) 12/14/19 15:40 Creatinine 0.64 mg/dL (0.52-1.25) 12/14/19 15:40 Est GFR ( Amer) > 60 (>60) 12/14/19 15:40 Est GFR (MDRD) Non-Af > 60 (>60) 12/14/19 15:40 Glucose 110 mg/dL (75-110) 12/14/19 15:40 Calcium 10.1 mg/dL (8.4-10.2) 12/14/19 15:40 Total Bilirubin 0.8 mg/dL (0.2-1.3) 12/14/19 15:40 Direct Bilirubin 0.0 mg/dL (0.0-0.4) 12/14/19 15:40 Neonat Total Bilirubin Not Reportable 12/14/19 15:40 Neonat Direct Bilirubin Not Reportable 12/14/19 15:40 Neonat Indirect Bili Not Reportable 12/14/19 15:40 AST 24 U/L (14-36) 12/14/19 15:40 ALT 17 U/L (<35) 12/14/19 15:40 Alkaline Phosphatase 76 U/L (38-126) 12/14/19 15:40 Creatine Kinase 45 U/L (30-135) 12/15/19 05:43 CK-MB (CK-2) < 0.22 ng/mL (<4.55) 12/15/19 05:43 Troponin I < 0.012 ng/mL 12/15/19 05:43 C-Reactive Protein < 5.0 mg/L (<10.0) 12/14/19 15:40 Total Protein 8.3 g/dL (6.3-8.2) H 12/14/19 15:40 Albumin 4.8 g/dL (3.5-5.0) 12/14/19 15:40 12/14/19 12/14/19 12/15/19 15:40 22:07 05:43 CK-MB (CK-2) < 0.22 < 0.22 < 0.22 Troponin I < 0.012 < 0.012 < 0.012 Impressions: Chest/Abdomen CTA 12/14/19 00:00 IMPRESSION: There is no obvious pulmonary embolus in this slightly limited study as described. There is no aortic aneurysm or dissection. No acute findings are present in the thorax. Head MRI 12/14/19 00:00 IMPRESSION: NORMAL MRI OF THE BRAIN WITHOUT INTRAVENOUS GADOLINIUM CONTRAST. EVIDENCE OF ACUTE STROKE: NO. Stroke Is this a Stroke Patient?: No Acute Heart Failure - Is this a Heart Failure Patient?: No
[2019-12-15] MEDS ORDERED: AMLODIPINE BESYLATE 5 MG TABLET PO SCH (22:00)
[2019-12-16 14:36] LABS: ANTICHROMATIN AB <0.2 AI (0.0-0.9); CENTROMERE B AB <0.2 AI (0.0-0.9); JO-1 ANTIBODY (ANACOMP) <0.2 AI (0.0-0.9)
== END 2019-12-15 20:35 | disposition home or self-care (01) ==
LOC: ER 14:25 → EH 16:53 → 3N 12-15 14:57
PROVIDERS: ADMIT Internal Medicine; ATTEND Internal Medicine
DX: G44.039 Episodic paroxysmal hemicrania, not intractable (principal); R07.9 Chest pain, unspecified; R06.02 Shortness of breath; I10 Essential (primary) hypertension; Z79.899 Other long term (current) drug therapy
CPT/HCPCS: 36415; 70551; 71275; 80048; 80076; 82550; 82553; 84484; 85025; 85379; 85652; 86140; 86225; 86235; 93005; 93010; G0378; G0379

== ENCOUNTER 2020-01-09 17:41 | Observation (INO) | payer OTHER, MEDICAID ==
[2020-01-09] MEDS ORDERED: GLUCAGON,HUMAN RECOMB 1 MG INJ SUBCUT PRN (18:21)
[2020-01-09] MEDS ORDERED: DEXTROSE 50%-WATER 25 GM/50 ML DISP.SYRIN IV PRN ×2 (18:21)
[2020-01-09] MEDS ORDERED: DEXTROSE 40% GEL 15 GM TUBE PO PRN ×2 (18:21)
--- NOTE | 2020-01-09 18:49 | RADIOLOGY REPORT (SQ) ---
EXAM DESCRIPTION: CHEST SINGLE VIEW COMPLETED DATE/TIME: 01/09/2020 6:40 pm REASON FOR STUDY: acute cholecystitis COMPARISON: 11/29/2017 EXAM PARAMETERS: NUMBER OF VIEWS: One view. TECHNIQUE: Single frontal radiographic view of the chest acquired. RADIATION DOSE: NA LIMITATIONS: None. FINDINGS: LUNGS AND PLEURA: No opacities, masses or pneumothorax. No pleural effusion. MEDIASTINUM AND HILAR STRUCTURES: No masses. Contour normal. HEART AND VASCULAR STRUCTURES: Heart normal in size. Normal vasculature. BONES: No acute findings. HARDWARE: None in the chest. OTHER: No other significant finding. IMPRESSION: NO ACUTE RADIOGRAPHIC FINDING IN THE CHEST. TECHNICAL DOCUMENTATION: JOB ID: [id number] 2010 [employer]- All Rights Reserved Reading location - IP/workstation name: [email or web address]
--- NOTE | 2020-01-09 18:53 | PDOC H&P ---
History of Present Illness Admission Date/PCP: 01/09/20 17:41 JEROMY HAWTHORNE MD History of Present Illness: VENU MCCLAIN is a 24 year old female, she has a history of hypertension, she came to the office today for evaluation of right upper quadrant abdominal pain of recent onset, the pain is aggravated with food intake. She was examined in the office, there was tenderness on palpation of the right upper quadrant, a stat ultrasound of the right upper quadrant of the abdomen was obtained, it demonstrated stones in the neck of the gallbladder, positive sonographic Pena sign, suspicion for acute cholecystitis, because of this finding she was admitted directly from outpatient ultrasound into the hospital. Past Medical History Cardiac Medical History: Reports: Hyperlipidema, Hypertension Pulmonary Medical History: Reports: Asthma Social History Smoking Status: Never Smoker Family History Family History: None Parental Family History Reviewed: Yes Children Family History Reviewed: Yes Sibling(s) Family History Reviewed.: Yes Medication/Allergy Home Medications: Amlodipine Besylate [Norvasc 5 mg Tablet] 5 mg PO DAILY #30 tablet 11/28/17 Concerta 27mg 27 mg PO DAILY 12/14/19 Multivitamin [Child Chew Vitamin] 2 each PO DAILY 12/14/19 Allergies/Adverse Reactions: No Known Allergies Allergy (Verified 12/14/19 15:09) Review of Systems Constitutional: ABSENT: chills, fever(s), headache(s), weight gain, weight loss Eyes: ABSENT: visual disturbances Ears: ABSENT: hearing changes Cardiovascular: ABSENT: chest pain, dyspnea on exertion, edema, orthropnea, palpitations Respiratory: ABSENT: cough, hemoptysis Gastrointestinal: PRESENT: abdominal pain, nausea. ABSENT: constipation, diarrhea, hematemesis, hematochezia, vomiting Genitourinary: ABSENT: dysuria, hematuria Musculoskeletal: ABSENT: joint swelling Integumentary: ABSENT: rash, wounds Neurological: ABSENT: abnormal gait, abnormal speech, confusion, dizziness, focal weakness, syncope Psychiatric: ABSENT: anxiety, depression, homidical ideation, suicidal ideation Endocrine: ABSENT: cold intolerance, heat intolerance, menstrual abnormalities, polydipsia, polyuria Hematologic/Lymphatic: ABSENT: easy bleeding, easy bruising, lymphadenopathy Physical Exam General appearance: PRESENT: no acute distress, well-developed, well-nourished Head exam: PRESENT: atraumatic, normocephalic Eye exam: PRESENT: conjunctiva pink, EOMI, PERRLA Ear exam: PRESENT: normal external ear exam Mouth exam: PRESENT: moist, tongue midline Neck exam: PRESENT: full ROM Respiratory exam: PRESENT: clear to auscultation jensen Cardiovascular exam: PRESENT: RRR, +S1, +S2 Pulses: PRESENT: normal dorsalis pedis pul, +2 pedal pulses bilateral Vascular exam: PRESENT: normal capillary refill GI/Abdominal exam: PRESENT: normal bowel sounds, soft, tenderness Rectal exam: PRESENT: deferred Neurological exam: PRESENT: alert, awake, oriented to person, oriented to place, oriented to time, oriented to situation, CN II-XII grossly intact Psychiatric exam: PRESENT: appropriate affect, normal mood Skin exam: PRESENT: dry, intact, warm Assessment & Plan - Diagnosis (1) Acute calculous cholecystitis Is this a current diagnosis for this admission?: Yes Plan: Patient presents with acute onset right upper quadrant abdominal pain ultrasound demonstrated stones in the neck of the gallbladder acute cholecystitis suspected, consultation requested from surgery, I spoke to Dr. carr about this patient for possible cholecystectomy (2) Essential (primary) hypertension Is this a current diagnosis for this admission?: Yes Plan: Based on the revised cardiac risk index score, she does not have a history of CVA, she does not have a history of CHF, she does not have a history of chronic kidney disease with creatinine of more than 2, she does not have a history of insulin requiring diabetes mellitus, she has low cardiovascular risk in the perioperative., She can proceed to surgery from cardiovascular risk standpoint.
[2020-01-09 19:22] LABS: ABSOLUTE BASOPHILS # (AUTO) 0.1 10^3/uL (0.0-0.2); ABSOLUTE EOSINOPHILS # (AUTO) 0.1 10^3/uL (0.0-0.6); ABSOLUTE LYMPHOCYTES (AUTO) 2.1 10^3/uL (0.5-4.7); ABSOLUTE MONOCYTES (AUTO) 1.1 10^3/uL (0.1-1.4); ABSOLUTE NEUT (AUTO) 10.7 10^3/uL (1.7-8.2); BASOPHILS % (AUTO) 0.5 % (0-2); EOSINOPHILS % (AUTO) 0.5 % (0-6); HEMATOCRIT 43.6 % (36.0-47.0); HEMOGLOBIN 14.8 g/dL (12.0-15.5); LYMPHOCYTES % (AUTO) 14.9 % (13-45); MEAN CORPUSCULAR HEMOGLOBIN 28.5 pg (27.0-33.4); MEAN CORPUSCULAR VOLUME 84 fl (80-97); PLATELET COUNT 312 10^3/uL (150-450); RED BLOOD COUNT 5.21 10^6/uL (3.72-5.28); RED CELL DISTRIBUTION WIDTH 13.1 % (11.5-14.0); SEGMENTED NEUTROPHILS % (AUTO) 76.1 % (42-78); TOTAL CELLS COUNTED % (AUTO) 100 %
[2020-01-09 19:25] LABS: INTERNATIONAL RATION (INR) 0.97; PROTHROMBIN TIME 12.8 SEC (11.4-15.4)
[2020-01-09 19:26] LABS: PARTIAL THROMBOPLASTIN TIME 27.9 SEC (23.5-35.8)
[2020-01-09 19:37] LABS: ALBUMIN 4.8 g/dL (3.5-5.0); ALKALINE PHOSPHATASE 89 U/L (38-126); AMYLASE 56 U/L (30-110); ANION GAP 14 (5-19); ASPARTATE AMINO TRANSFERASE 24 U/L (14-36); BILIRUBIN,DIRECT 0.2 mg/dL (0.0-0.4); BILIRUBIN,TOTAL 0.8 mg/dL (0.2-1.3); BLOOD UREA NITROGEN 9 mg/dL (7-20); CALCIUM 9.9 mg/dL (8.4-10.2); CARBON DIOXIDE 23 mmol/L (22-30); CHLORIDE 101 mmol/L (98-107); GLUCOSE 90 mg/dL (75-110); TOTAL PROTEIN 8.2 g/dL (6.3-8.2)
--- NOTE | 2020-01-09 19:39 | PDOC CONSULTATION ---
Consultation Consult Date: 01/09/20 Provider Consulted: ANN BORREGO Consult reason:: Abdominal pain History of Present Illness Admission Date/PCP: 01/09/20 17:41 JEROMY HAWTHORNE MD History of Present Illness: VENU MCCLAIN is a 24 year old female presenting with couple week history of intermittent right upper quadrant abdominal pain with a low-grade fever. The pain is worsened with coffee intake. She has had some nausea and some dry heaves. Isolated episode of diarrhea today. No jaundice. The pain has been persistent today although lessened this evening. No history of liver disease nor alcohol abuse. Patient does suffer from polycystic ovarian syndrome. Past Medical History Cardiac Medical History: Reports: Hyperlipidema, Hypertension Pulmonary Medical History: Reports: Asthma Past Surgical History Past Surgical History: Reports: Other - D&C Social History Smoking Status: Never Smoker Frequency of Alcohol Use: Rare Drugs: None Hx Prescription Drug Abuse: No Family History Family History: None Parental Family History Reviewed: Yes - Hypertension Children Family History Reviewed: Yes Sibling(s) Family History Reviewed.: Yes Medication/Allergy Home Medications: Amlodipine Besylate [Norvasc 5 mg Tablet] 5 mg PO QHS 01/09/20 Allergies/Adverse Reactions: No Known Allergies Allergy (Verified 12/14/19 15:09) Physical Exam Vital Signs: Temp Pulse Resp BP Pulse Ox 98.9 F 103 H 17 153/93 H 97 01/09/20 18:42 01/09/20 18:42 01/09/20 18:42 01/09/20 18:42 01/09/20 18:42 Intake & Output 01/08/20 01/09/20 01/10/20 06:59 06:59 06:59 Weight 83.1 kg General appearance: PRESENT: no acute distress, cooperative Eye exam: PRESENT: conjunctiva pink Neck exam: PRESENT: other - Supple with no tenderness and no masses Respiratory exam: PRESENT: clear to auscultation jensen Cardiovascular exam: PRESENT: RRR GI/Abdominal exam: PRESENT: other - Soft, nondistended, focal tenderness to palpation the right upper quadrant with positive Pena sign. Extremities exam: PRESENT: other - No swelling Neurological exam: PRESENT: alert, awake Psychiatric exam: PRESENT: appropriate affect Skin exam: PRESENT: warm Results Laboratory Results: 01/09/20 18:54 01/09/20 18:54 WBC 14.0 H RBC 5.21 Hgb 14.8 Hct 43.6 MCV 84 MCH 28.5 MCHC 34.0 RDW 13.1 Plt Count 312 Seg Neutrophils % 76.1 Impressions: Chest X-Ray 01/09/20 18:16 IMPRESSION: NO ACUTE RADIOGRAPHIC FINDING IN THE CHEST. Assessment & Plan - Diagnosis (1) Acute calculous cholecystitis Is this a current diagnosis for this admission?: Yes Plan: Plan laparoscopic cholecystectomy the morning either by me or Dr. Linder. I have discussed with the patient the risk and benefits of the procedure including risk of bile duct injury, intestinal injury, bleeding, infection, conversion to open procedure, cardiopulmonary risks, postcholecystectomy diarrhea. Patient understands and agrees to proceed. We will have patient go n.p.o. post midnight, placed on IV fluids and antibiotics while awaiting surgery.
[2020-01-09 19:56] LABS: FREE T4 (FREE THYROXINE) 1.09 ng/dL (0.78-2.19)
[2020-01-09 20:10] LABS: THYROID STIMULATING HORMONE 1.3 uIU/mL (0.47-4.68)
[2020-01-09] MEDS: ENOXAPARIN SODIUM INJ 40 MG/0.4 ML DISP.SYRIN SUBCUT SCH (20:11)
[2020-01-09 20:56] LABS: APPEARANCE,URINE CLEAR; BILIRUBIN,URINE NEGATIVE (NEGATIVE); COLOR,URINE STRAW; GLUCOSE, URINE NEGATIVE (NEGATIVE); KETONES,URINE TRACE mg/dL (NEGATIVE); LEUKOCYTE ESTERASE,URINE NEGATIVE (NEGATIVE); NITRITE,URINE NEGATIVE (NEGATIVE); PROTEIN,URINE NEGATIVE (NEGATIVE); URINE SPECIFIC GRAVITY 1.008; UROBILINOGEN,URINE NEGATIVE mg/dL (<2.0)
[2020-01-09 21:16] LABS: URINE AMPHETAMINES SCREEN NEGATIVE; URINE BARBITURATES SCREEN NEGATIVE; URINE BENZODIAZEPINES SCREEN NEGATIVE; URINE COCAINE SCREEN NEGATIVE; URINE MARIJUANA (THC) SCREEN NEGATIVE; URINE METHADONE SCREEN NEGATIVE; URINE PHENCYCLIDINE SCREEN NEGATIVE
[2020-01-09] MEDS: AMPICILLIN SODIUM/SULBACTAM NA 3 GM in NORMAL SALINE 100 ML IV SCH (21:33)
[2020-01-09] MEDS: AMLODIPINE BESYLATE 5 MG TABLET PO SCH (21:34)
[2020-01-09] MEDS ORDERED: NORMAL SALINE 1000 ML 1,000 ML IV ONE (22:00)
[2020-01-10] MEDS: POTASSI CL 20 MEQ/1/2NS 1L 20 MEQ/1,000 ML RTUINJ IV PRN (00:06)
[2020-01-10] MEDS: AMPICILLIN SODIUM/SULBACTAM NA 3 GM in NORMAL SALINE 100 ML IV SCH ×4 (02:21→20:22)
[2020-01-10 05:59] LABS: ABSOLUTE EOSINOPHILS # (AUTO) 0.2 10^3/uL (0.0-0.6); ABSOLUTE LYMPHOCYTES (AUTO) 2.6 10^3/uL (0.5-4.7); ABSOLUTE MONOCYTES (AUTO) 0.9 10^3/uL (0.1-1.4); ABSOLUTE NEUT (AUTO) 4.5 10^3/uL (1.7-8.2); BASOPHILS % (AUTO) 0.5 % (0-2); EOSINOPHILS % (AUTO) 2.1 % (0-6); HEMATOCRIT 35.9 % (36.0-47.0); MEAN CORPUSCULAR HEMOGLOBIN 28.8 pg (27.0-33.4); MEAN CORPUSCULAR HGB CONC 34.5 g/dL (32.0-36.0); MEAN CORPUSCULAR VOLUME 83 fl (80-97); MONOCYTES % (AUTO) 11.1 % (3-13); PLATELET COUNT 243 10^3/uL (150-450); RED BLOOD COUNT 4.31 10^6/uL (3.72-5.28); SEGMENTED NEUTROPHILS % (AUTO) 54.3 % (42-78); TOTAL CELLS COUNTED % (AUTO) 100 %; WHITE BLOOD COUNT 8.2 10^3/uL (4.0-10.5)
[2020-01-10 06:03] LABS: HEMOGLOBIN 12.4 g/dL (12.0-15.5)
[2020-01-10 06:16] LABS: ALBUMIN 3.5 g/dL (3.5-5.0); ALKALINE PHOSPHATASE 62 U/L (38-126); ANION GAP 7 (5-19); ASPARTATE AMINO TRANSFERASE 17 U/L (14-36); BILIRUBIN,TOTAL 1.3 mg/dL (0.2-1.3); BLOOD UREA NITROGEN 9 mg/dL (7-20); CALCIUM 8.5 mg/dL (8.4-10.2); CARBON DIOXIDE 23 mmol/L (22-30); CHLORIDE 107 mmol/L (98-107); CHOLESTEROL 200.28 mg/dL (0-200); GLUCOSE 96 mg/dL (75-110); POTASSIUM 4.3 mmol/L (3.6-5.0); TOTAL PROTEIN 6.2 g/dL (6.3-8.2); TRIGLYCERIDES 120 mg/dL (<150)
[2020-01-10 06:27] LABS: DIRECT LDL 145 mg/dL (<100)
--- NOTE | 2020-01-10 11:19 | EKG REPORT ---
SEVERITY:- NORMAL ECG - SINUS RHYTHM : Confirmed by: Juan Pablo Lanza MD 10-Jan-2020 11:18:48
[2020-01-10] MEDS ORDERED: FENTANYL CITRATE INJ/PF 100 MCG/2 ML AMPUL ONE (12:50)
[2020-01-10] MEDS ORDERED: PROPOFOL INJ 200 MG/20 ML VIAL IV ONE ×2 (12:51→13:05)
[2020-01-10] MEDS ORDERED: DEXAMETHASONE SOD PHOSPHATE INJ 4 MG/1 ML VIAL ONE (12:51)
[2020-01-10] MEDS ORDERED: ONDANSETRON HCL INJ/PF 4 MG/2 ML SDV ONE (12:51)
[2020-01-10] MEDS ORDERED: MIDAZOLAM 2 MG/2 ML INJ ONE ×2 (12:51→13:05)
[2020-01-10] MEDS ORDERED: FENTANYL CITRATE INJ/PF 250 MCG/5 ML AMPULE ONE (13:05)
[2020-01-10] MEDS ORDERED: BUPIVACAINE HCL 0.25 % INJ/PF (2.5 MG/1 ML) 30 ML VIAL ONE (13:08)
[2020-01-10] MEDS ORDERED: MEPERIDINE HCL/PF INJ 25 MG/1 ML DISP.SYRIN IV PRN (13:12)
[2020-01-10] MEDS ORDERED: DIPHENHYDRAMINE HCL 50 MG/ML VIAL IV PRN (13:12)
[2020-01-10] MEDS ORDERED: PROMETHAZINE HCL INJ 25 MG/1 ML VIAL IV PRN (13:12)
[2020-01-10] MEDS ORDERED: FENTANYL CITRATE INJ/PF 100 MCG/2 ML AMPUL IV PRN ×3 (13:12)
--- NOTE | 2020-01-10 13:42 | PDOC PROGRESS REPORT ---
Subjective Progress Note for:: 01/10/20 Subjective:: 24-year-old female with right upper quadrant pain and gallstones/sludge. Her symptoms appear to be consistent with acute cholecystitis. This morning she continues to report nausea, and right upper quadrant pain. She denies chest pain, shortness of breath, fevers, chills, upper respiratory symptoms, headache, dizziness, blurry vision, melena, hematochezia, hematemesis. Reason For Visit: ACUTE CHOLECYSTITIS Physical Exam Vital Signs: Temp Pulse Resp BP Pulse Ox 98.8 F 73 16 122/73 97 01/10/20 09:44 01/10/20 09:44 01/10/20 09:44 01/10/20 09:44 01/10/20 09:44 Intake & Output 01/09/20 01/10/20 01/11/20 06:59 06:59 06:59 Intake Total 1425 Balance 1425 Weight 85.1 kg General appearance: PRESENT: no acute distress, cooperative Head exam: PRESENT: atraumatic, normocephalic Eye exam: PRESENT: EOMI, PERRLA. ABSENT: scleral icterus Mouth exam: PRESENT: moist, neck supple Neck exam: ABSENT: meningismus, tenderness, thyromegaly, tracheal deviation Respiratory exam: PRESENT: clear to auscultation jensen, unlabored. ABSENT: chest wall tenderness, tachypnea Cardiovascular exam: ABSENT: tachycardia Vascular exam: PRESENT: normal capillary refill. ABSENT: pallor GI/Abdominal exam: PRESENT: Pena's sign, soft, tenderness. ABSENT: distended, guarding Rectal exam: PRESENT: deferred Extremities exam: ABSENT: clubbing Musculoskeletal exam: ABSENT: deformity Neurological exam: PRESENT: alert, awake, oriented to person, oriented to place, oriented to time, oriented to situation Psychiatric exam: ABSENT: agitated, anxious, depressed Focused psych exam: ABSENT: delusional Skin exam: ABSENT: cyanosis, erythema, jaundice Results Laboratory Results: 01/10/20 05:30 01/10/20 05:30 01/09/20 01/09/20 01/09/20 18:54 18:54 18:54 WBC 14.0 H RBC 5.21 Hgb 14.8 Hct 43.6 MCV 84 MCH 28.5 MCHC 34.0 RDW 13.1 Plt Count 312 Seg Neutrophils % 76.1 Sodium 137.5 Potassium 4.0 Chloride 101 Carbon Dioxide 23 Anion Gap 14 BUN 9 Creatinine 0.63 Est GFR ( Amer) > 60 Glucose 90 Calcium 9.9 Total Bilirubin 0.8 AST 24 Alkaline Phosphatase 89 Total Protein 8.2 Albumin 4.8 Triglycerides Cholesterol LDL Cholesterol Direct VLDL Cholesterol HDL Cholesterol Amylase 56 Lipase 42.5 TSH 1.30 Free T4 1.09 Urine Color Urine Appearance Urine pH Ur Specific [place] Urine Protein Urine Glucose (UA) Urine Ketones Urine Blood Urine Nitrite Ur Leukocyte Esterase Urine WBC (Auto) Urine RBC (Auto) 01/09/20 01/10/20 01/10/20 19:45 05:30 05:30 WBC 8.2 RBC 4.31 Hgb 12.4 D Hct 35.9 L MCV 83 MCH 28.8 MCHC 34.5 RDW 13.0 Plt Count 243 Seg Neutrophils % 54.3 Sodium 136.8 L Potassium 4.3 Chloride 107 Carbon Dioxide 23 Anion Gap 7 BUN 9 Creatinine 0.63 Est GFR ( Amer) > 60 Glucose 96 Calcium 8.5 Total Bilirubin 1.3 AST 17 Alkaline Phosphatase 62 Total Protein 6.2 L Albumin 3.5 Triglycerides 120 Cholesterol 200.28 H LDL Cholesterol Direct 145 H VLDL Cholesterol 24.0 HDL Cholesterol 38 L Amylase Lipase TSH Free T4 Urine Color STRAW Urine Appearance CLEAR Urine pH 6.0 Ur Specific [place] 1.008 Urine Protein NEGATIVE Urine Glucose (UA) NEGATIVE Urine Ketones TRACE H Urine Blood NEGATIVE Urine Nitrite NEGATIVE Ur Leukocyte Esterase NEGATIVE Urine WBC (Auto) 1 Urine RBC (Auto) 0 Impressions: Chest X-Ray 01/09/20 18:16 IMPRESSION: NO ACUTE RADIOGRAPHIC FINDING IN THE CHEST. Assessment & Plan - Diagnosis (1) Acute calculous cholecystitis Is this a current diagnosis for this admission?: Yes - Plan Summary Plan Summary: This is a 24-year-old female with acute cholecystitis. Plan for cholecystectomy today. This has been discussed at length with the patient. Risk/benefits reviewed, informed consent obtained, and all questions answered.
[2020-01-10] MEDS ORDERED: KETOROLAC TROMETHAMINE INJ/PF 30 MG/1 ML SDV ONE (15:16)
[2020-01-10] MEDS ORDERED: KETOROLAC TROMETHAMINE INJ/PF 30 MG/1 ML SDV IV ONE (15:30)
--- NOTE | 2020-01-10 15:57 | Operative Report ---
Nonrecallable Operative Report DATE OF SURGERY: 01/10/20 PREOPERATIVE DIAGNOSIS: Acute cholecystitis POSTOPERATIVE DIAGNOSIS: Acute cholecystitis OPERATION: Laparoscopic cholecystectomy SURGEON: FRANK SHEETS ANESTHESIA: GA TISSUE REMOVED OR ALTERED: Gallbladder COMPLICATIONS: None apparent ESTIMATED BLOOD LOSS: Minimal PROCEDURE: Drains/implants: None. Procedure in detail: After informed consent was obtained, the patient was brought to the operating room and laid in the supine position. The area of the abdomen was prepped and draped in a normal sterile fashion. An infraumbilical incision was created with a 15 blade scalpel. Dissection was carried through the subcutaneous tissues using sharp and blunt dissection. The cicatrix was grasped with a Pat clamp, retracted upwards. The linea alba fascia was then incised. The abdomen was entered sharply. The balloon trocar was inserted, and pneumoperitoneum was achieved. A 5 mm subxiphoid port was then placed under direct laparoscopic visualization. 2 more 5 mm ports were placed in the right upper quadrant in similar fashion. Atraumatic graspers were placed through the 5 mm ports. The gallbladder was retracted cephalad and laterally. Dissection was begun in the triangle of Calot. There was acute inflammation circumferentially around the gallbladder. The triangle of Calot was freed. The cystic duct and cystic artery were fully visualized and skeletonized, seeing the liver through the triangle. Once the critical view of safety was obtained, the cystic duct and cystic artery were clipped and cut with laparoscopic instruments. The gallbladder was then removed from the liver using Bovie electrocautery. The gallbladder was placed into an Endo Catch bag, and pulled out through the umbilicus. The camera was reinserted. The hilum was inspected. It was found to be free of any leakage of blood or bile. The 5 mm trochars were then removed under direct laparoscopic visualization. The infraumbilical trocar was removed, and pneumoperitoneum was relieved. The infraumbilical fascia was closed using 0 Vicryl suture in [id number] fashion. The overlying skin was closed using 4-0 Vicryl Rapide suture in subcuticular fashion. Dressings were placed, and the procedure was concluded. All sponge, instrument, needle counts were correct x2. Condition: Stable.
[2020-01-10] MEDS: MORPHINE SULFATE 10 MG/ML INJ IV PRN ×2 (16:13→20:34)
[2020-01-10] MEDS: AMLODIPINE BESYLATE 5 MG TABLET PO SCH (21:29)
[2020-01-11] MEDS: POTASSI CL 20 MEQ/1/2NS 1L 20 MEQ/1,000 ML RTUINJ IV PRN (00:13)
[2020-01-11] MEDS: AMPICILLIN SODIUM/SULBACTAM NA 3 GM in NORMAL SALINE 100 ML IV SCH ×2 (02:17→08:39)
--- NOTE | 2020-01-11 09:01 | PDOC PROGRESS REPORT ---
Subjective Progress Note for:: 01/11/20 Subjective:: Feels well. Tolerating a diet well. Reason For Visit: ACUTE CHOLECYSTITIS Physical Exam Vital Signs: Temp Pulse Resp BP Pulse Ox 98.7 F 76 16 119/66 97 01/11/20 07:17 01/11/20 07:17 01/11/20 07:17 01/11/20 07:17 01/11/20 07:17 Intake & Output 01/10/20 01/11/20 01/12/20 06:59 06:59 06:59 Intake Total 1425 2500 Output Total 0 Balance 1425 2500 Weight 85.1 kg 85 kg General appearance: PRESENT: no acute distress, cooperative Respiratory exam: PRESENT: clear to auscultation jensen Cardiovascular exam: PRESENT: RRR GI/Abdominal exam: PRESENT: other - Soft, nondistended, minimal tenderness. Wound is clean dry and intact. Results Laboratory Results: 01/10/20 05:30 01/10/20 05:30 Impressions: Chest X-Ray 01/09/20 18:16 IMPRESSION: NO ACUTE RADIOGRAPHIC FINDING IN THE CHEST. Assessment & Plan - Diagnosis (1) Acute calculous cholecystitis Is this a current diagnosis for this admission?: Yes Plan: Status post laparoscopic cholecystectomy. Patient doing well. Will discharge patient home.
[2020-01-11] MEDS: ENOXAPARIN SODIUM INJ 40 MG/0.4 ML DISP.SYRIN SUBCUT SCH (09:09)
[2020-01-11 11:46] VITALS: BP 126/51
--- NOTE | 2020-01-11 18:31 | PDOC DISCHARGE SUMMARY ---
Impression - Admit/DC Date/PCP Admission Date/Primary Care Provider: 01/09/20 17:41 JEROMY HAWTHORNE MD Discharge Date: 01/11/20 - Discharge Diagnosis (1) Acute calculous cholecystitis Is this a current diagnosis for this admission?: Yes (2) Essential (primary) hypertension Is this a current diagnosis for this admission?: Yes - Additional Information Resuscitation Status: Full Code Discharge Diet: As Tolerated Discharge Activity: Activity As Tolerated, No Lifting Over 10 Pounds, No Lifting/Push/Pulling Referrals: [facility] [Provider Group] - 01/22/20 8:00 am Home Medications: Amlodipine Besylate [Norvasc 5 mg Tablet] 5 mg PO QHS 01/09/20 History of Present Illiness History of Present Illness: VENU MCCLAIN is a 24 year old female, she has a history of hypertension, she came to the office today for evaluation of right upper quadrant abdominal pain of recent onset, the pain is aggravated with food intake. She was examined in the office, there was tenderness on palpation of the right upper quadrant, a stat ultrasound of the right upper quadrant of the abdomen was obtained, it demonstrated stones in the neck of the gallbladder, positive sonographic Pena sign, suspicion for acute cholecystitis, because of this finding she was admitted directly from outpatient ultrasound into the hospital. Hospital Course Hospital Course: Patient was admitted for the management of acute calculus cholecystitis, she was seen in consultation by the surgeon she underwent laparoscopic cholecystectomy without complications.On admission she was initially treated with intravenous antibiotic Physical Exam Vital Signs: Temp Pulse Resp BP Pulse Ox 98.9 F 97 18 126/51 H 99 01/11/20 13:23 01/11/20 13:23 01/11/20 13:23 01/11/20 13:23 01/11/20 13:23 Intake & Output 01/10/20 01/11/20 01/12/20 06:59 06:59 06:59 Intake Total 1425 2500 100 Output Total 0 Balance 1425 2500 100 Weight 85.1 kg 85 kg General appearance: PRESENT: no acute distress Eye exam: PRESENT: PERRLA Respiratory exam: PRESENT: clear to auscultation jensen Cardiovascular exam: PRESENT: +S1, +S2 GI/Abdominal exam: PRESENT: soft Neurological exam: PRESENT: alert, CN II-XII grossly intact Results Laboratory Results: WBC 8.2 10^3/uL (4.0-10.5) 01/10/20 05:30 RBC 4.31 10^6/uL (3.72-5.28) 01/10/20 05:30 Hgb 12.4 g/dL (12.0-15.5) D 01/10/20 05:30 Hct 35.9 % (36.0-47.0) L 01/10/20 05:30 MCV 83 fl (80-97) 01/10/20 05:30 MCH 28.8 pg (27.0-33.4) 01/10/20 05:30 MCHC 34.5 g/dL (32.0-36.0) 01/10/20 05:30 RDW 13.0 % (11.5-14.0) 01/10/20 05:30 Plt Count 243 10^3/uL (150-450) 01/10/20 05:30 Lymph % (Auto) 32.0 % (13-45) 01/10/20 05:30 [place] % (Auto) 11.1 % (3-13) 01/10/20 05:30 Eos % (Auto) 2.1 % (0-6) 01/10/20 05:30 Baso % (Auto) 0.5 % (0-2) 01/10/20 05:30 Absolute Neuts (auto) 4.5 10^3/uL (1.7-8.2) 01/10/20 05:30 Absolute Lymphs (auto) 2.6 10^3/uL (0.5-4.7) 01/10/20 05:30 Absolute Monos (auto) 0.9 10^3/uL (0.1-1.4) 01/10/20 05:30 Absolute Eos (auto) 0.2 10^3/uL (0.0-0.6) 01/10/20 05:30 Absolute Basos (auto) 0.0 10^3/uL (0.0-0.2) 01/10/20 05:30 Seg Neutrophils % 54.3 % (42-78) 01/10/20 05:30 PT 12.8 SEC (11.4-15.4) 01/09/20 18:54 INR 0.97 01/09/20 18:54 APTT 27.9 SEC (23.5-35.8) 01/09/20 18:54 Sodium 136.8 mmol/L (137-145) L 01/10/20 05:30 Potassium 4.3 mmol/L (3.6-5.0) 01/10/20 05:30 Chloride 107 mmol/L (98-107) 01/10/20 05:30 Carbon Dioxide 23 mmol/L (22-30) 01/10/20 05:30 Anion Gap 7 (5-19) 01/10/20 05:30 BUN 9 mg/dL (7-20) 01/10/20 05:30 Creatinine 0.63 mg/dL (0.52-1.25) 01/10/20 05:30 Est GFR ( Amer) > 60 (>60) 01/10/20 05:30 Est GFR (MDRD) Non-Af > 60 (>60) 01/10/20 05:30 Glucose 96 mg/dL (75-110) 01/10/20 05:30 Hemoglobin A1c % 5.6 % (4.7-6.0) 01/10/20 05:30 Calcium 8.5 mg/dL (8.4-10.2) 01/10/20 05:30 Total Bilirubin 1.3 mg/dL (0.2-1.3) 01/10/20 05:30 Direct Bilirubin 0.0 mg/dL (0.0-0.4) 01/10/20 05:30 Neonat Total Bilirubin Not Reportable 01/10/20 05:30 Neonat Direct Bilirubin Not Reportable 01/10/20 05:30 Neonat Indirect Bili Not Reportable 01/10/20 05:30 AST 17 U/L (14-36) 01/10/20 05:30 ALT 19 U/L (<35) 01/10/20 05:30 Alkaline Phosphatase 62 U/L (38-126) 01/10/20 05:30 Total Protein 6.2 g/dL (6.3-8.2) L 01/10/20 05:30 Albumin 3.5 g/dL (3.5-5.0) 01/10/20 05:30 Triglycerides 120 mg/dL (<150) 01/10/20 05:30 Cholesterol 200.28 mg/dL (0-200) H 01/10/20 05:30 LDL Cholesterol Direct 145 mg/dL (<100) H 01/10/20 05:30 VLDL Cholesterol 24.0 mg/dL (10-31) 01/10/20 05:30 HDL Cholesterol 38 mg/dL (>40) L 01/10/20 05:30 Amylase 56 U/L (30-110) 01/09/20 18:54 Lipase 42.5 U/L (23-300) 01/09/20 18:54 TSH 1.30 uIU/mL (0.47-4.68) 01/09/20 18:54 Free T4 1.09 ng/dL (0.78-2.19) 01/09/20 18:54 Urine Color STRAW 01/09/20 19:45 Urine Appearance CLEAR 01/09/20 19:45 Urine pH 6.0 (5.0-9.0) 01/09/20 19:45 Ur Specific [place] 1.008 01/09/20 19:45 Urine Protein NEGATIVE mg/dL (NEGATIVE) 01/09/20 19:45 Urine Glucose (UA) NEGATIVE mg/dL (NEGATIVE) 01/09/20 19:45 Urine Ketones TRACE mg/dL (NEGATIVE) H 01/09/20 19:45 Urine Blood NEGATIVE (NEGATIVE) 01/09/20 19:45 Urine Nitrite NEGATIVE (NEGATIVE) 01/09/20 19:45 Urine Bilirubin NEGATIVE (NEGATIVE) 01/09/20 19:45 Urine Urobilinogen NEGATIVE mg/dL (<2.0) 01/09/20 19:45 Ur Leukocyte Esterase NEGATIVE (NEGATIVE) 01/09/20 19:45 Urine WBC (Auto) 1 /HPF 01/09/20 19:45 Urine RBC (Auto) 0 /HPF 01/09/20 19:45 Squamous Epi Cells Auto 4 /HPF 01/09/20 19:45 Urine Mucus (Auto) RARE /LPF 01/09/20 19:45 Urine Ascorbic Acid NEGATIVE (NEGATIVE) 01/09/20 19:45 Urine HCG, Qual NEGATIVE (NEGATIVE) 01/10/20 11:20 Urine Opiates Screen NEGATIVE 01/09/20 19:45 Urine Methadone Screen NEGATIVE 01/09/20 19:45 Ur Barbiturates Screen NEGATIVE 01/09/20 19:45 Ur Phencyclidine Scrn NEGATIVE 01/09/20 19:45 Ur Amphetamines Screen NEGATIVE 01/09/20 19:45 U Benzodiazepines Scrn NEGATIVE 01/09/20 19:45 Urine Cocaine Screen NEGATIVE 01/09/20 19:45 U Marijuana (THC) Screen NEGATIVE 01/09/20 19:45 Impressions: Chest X-Ray 01/09/20 18:16 IMPRESSION: NO ACUTE RADIOGRAPHIC FINDING IN THE CHEST. Stroke Is this a Stroke Patient?: No Acute Heart Failure - Is this a Heart Failure Patient?: No
== END 2020-01-11 13:47 | disposition home or self-care (01) ==
LOC: INTOOBSV 17:41 → 4S 17:41
PROVIDERS: ADMIT Internal Medicine; ATTEND Internal Medicine
DX: K80.12 Calculus of gallbladder with acute and chronic cholecystitis without obstruction (principal); I10 Essential (primary) hypertension; E28.2 Polycystic ovarian syndrome; Z79.899 Other long term (current) drug therapy
CPT/HCPCS: 36415 ×2; 84439; 82150; 83690; 84443; 85025 ×2; 85610; 85730; 81025; 80053 ×2; 81001; 80307; 83036; 80061; 88304 ×2; 71045; 93005; 93010; 47562; G0378 ×2; G0379; J2250; J1100; J3480 ×2; J3010; J0295 ×3; J1885; J2270; J2405; J7050 ×3; J7030; J2704; 790

== ENCOUNTER → 2020-01-09 | Outpatient (CLI) | payer OTHER, MEDICAID ==
--- NOTE | 2020-01-09 17:06 | RADIOLOGY REPORT (SQ) ---
EXAM DESCRIPTION: U/S ABDOMEN LTD W/DOPPLER COMPLETED DATE/TIME: 01/09/2020 4:49 pm REASON FOR STUDY: R10.11 RIGHT UPPER QUADRANT PAIN R10.11 RIGHT UPPER QUADRANT PAIN COMPARISON: None. TECHNIQUE: Dynamic and static grayscale images acquired of the abdomen and recorded on PACS. Additio nal selected color Doppler and spectral images recorded. LIMITATIONS: None. FINDINGS: PANCREAS: No masses. Visualized pancreatic duct normal caliber. LIVER: Echogenic. This suggests fatty parenchyma. Normal size without gross mass. LIVER VASCULATURE: Normal directional flow of the main portal vein and hepatic veins. GALLBLADDER: No wall thickening. Sludge is present along with stones. Stones are present in the gal lbladder neck. ULTRASOUND-DETECTED PENA'S SIGN: Positive. INTRAHEPATIC DUCTS AND COMMON DUCT: CBD and intrahepatic ducts normal caliber. No filling defects. INFERIOR VENA CAVA: Normal flow. AORTA: No aneurysm. RIGHT KIDNEY: Normal size. Normal echogenicity. No solid or suspicious masses. No hydronephrosis. No calcifications. PERITONEAL AND RIGHT PLEURAL SPACE: No ascites or effusions. OTHER: No other significant findings. IMPRESSION: 1. Suspicious for acute cholecystitis. They are stones in the gallbladder neck and there is a positi ve sonographic Pena's sign. Call report tasked to the [facility] CORE team at the time of dictation. TECHNICAL DOCUMENTATION: JOB ID: [id number] 2010 [employer]- All Rights Reserved Reading location - IP/workstation name: [email or web address]
== END ==
LOC: RAD 16:23
PROVIDERS: ATTEND Internal Medicine
DX: R10.11 Right upper quadrant pain (principal)
CPT/HCPCS: 76705; 93976

== ENCOUNTER 2020-04-13 08:32 | Emergency (ER) | payer OTHER, MEDICAID ==
[2020-04-13 09:07] LABS: ABSOLUTE EOSINOPHILS # (AUTO) 0.3 10^3/uL (0.0-0.6); ABSOLUTE LYMPHOCYTES (AUTO) 1.9 10^3/uL (0.5-4.7); ABSOLUTE MONOCYTES (AUTO) 1.1 10^3/uL (0.1-1.4); ABSOLUTE NEUT (AUTO) 7.7 10^3/uL (1.7-8.2); BASOPHILS % (AUTO) 0.4 % (0-2); EOSINOPHILS % (AUTO) 2.5 % (0-6); HEMATOCRIT 36.9 % (36.0-47.0); HEMOGLOBIN 13.2 g/dL (12.0-15.5); MEAN CORPUSCULAR HEMOGLOBIN 29.6 pg (27.0-33.4); MEAN CORPUSCULAR HGB CONC 35.7 g/dL (32.0-36.0); MEAN CORPUSCULAR VOLUME 83 fl (80-97); MONOCYTES % (AUTO) 9.7 % (3-13); PLATELET COUNT 268 10^3/uL (150-450); RED BLOOD COUNT 4.44 10^6/uL (3.72-5.28); RED CELL DISTRIBUTION WIDTH 13.8 % (11.5-14.0); SEGMENTED NEUTROPHILS % (AUTO) 70.4 % (42-78); TOTAL CELLS COUNTED % (AUTO) 100 %
[2020-04-13 09:11] LABS: APPEARANCE,URINE SLIGHTLY-CLOUDY; BILIRUBIN,URINE NEGATIVE (NEGATIVE); COLOR,URINE YELLOW; GLUCOSE, URINE NEGATIVE (NEGATIVE); KETONES,URINE NEGATIVE (NEGATIVE); LEUKOCYTE ESTERASE,URINE NEGATIVE (NEGATIVE); NITRITE,URINE NEGATIVE (NEGATIVE); PROTEIN,URINE NEGATIVE (NEGATIVE); URINE SPECIFIC GRAVITY 1.014; UROBILINOGEN,URINE NEGATIVE mg/dL (<2.0)
[2020-04-13 09:19] LABS: ALBUMIN 3.7 g/dL (3.5-5.0); ALKALINE PHOSPHATASE 65 U/L (38-126); ANION GAP 7 (5-19); ASPARTATE AMINO TRANSFERASE 29 U/L (14-36); BILIRUBIN,TOTAL 0.6 mg/dL (0.2-1.3); BLOOD UREA NITROGEN 6 mg/dL (7-20); CALCIUM 9.4 mg/dL (8.4-10.2); CARBON DIOXIDE 20 mmol/L (22-30); CHLORIDE 107 mmol/L (98-107); GLUCOSE 105 mg/dL (75-110); POTASSIUM 4.2 mmol/L (3.6-5.0); TOTAL PROTEIN 6.6 g/dL (6.3-8.2)
--- NOTE | 2020-04-13 14:05 | ER Document Report ---
ED General - General Chief Complaint: OB Problem (<20wks) Stated Complaint: OB PROBLEM/VAGINAL BLEEDING Primary Care Provider: JEROMY HAWTHORNE MD [Primary Care Provider] - Follow up as needed Notes: Patient is a 24-year-old white female with a history of PCOS and hypertension who is G4, at approximately 15 weeks gestation who presents to the emergency department with a chief complaint of slight vaginal bleeding. She states she awoke this morning and had some lower abdominal cramping. She states she felt like she needed to move her bowels, subsequently had a bowel movement which did improve the cramping but states she noticed some pink-tinged material exit the vagina during the bowel movement. She states this was a very small amount of a light pink mucousy substance. She refers to it as the "mucous plug". She states that she seen mucous plugs in the past and this was not near the size of a normal mucous plug, she reports this was maybe only "part of it". She has had routine care up to this point with normal ultrasounds and hCG. She denies any ongoing abdominal pain, nausea, vomiting, chills, fever or back pain. Admits to some increased urinary frequency. TRAVEL OUTSIDE OF THE [place] IN LAST 30 DAYS: No - Related Data Allergies/Adverse Reactions: No Known Allergies Allergy (Verified 04/13/20 08:38) Past Medical History - Social History Smoking Status: Never Smoker Chew tobacco use (# tins/day): No Frequency of alcohol use: None Drug Abuse: None Family History: None - Past Medical History Cardiac Medical History: Reports: Hx Hypercholesterolemia, Hx Hypertension Pulmonary Medical History: Reports: Hx Asthma Endocrine Medical History: Renal/ Medical History: Reports: Hx Ovarian Cysts. Denies: Hx Peritoneal Dialysis Psychiatric Medical History: Reports: Hx Anxiety Past Surgical History: Reports: Hx Genitourinary Surgery - D&C, Other - D&C - Immunizations Immunizations up to date: Yes Hx Diphtheria, Pertussis, Tetanus Vaccination: Yes Review of Systems - Review of Systems Genitourinary: Frequency Female Genitourinary: Vaginal bleeding, Other - Lower abdominal cramping -: Yes All other systems reviewed and negative Physical Exam - Vital signs Vitals: Temp Pulse Resp BP Pulse Ox 97.8 F 89 20 129/75 H 98 04/13/20 08:37 04/13/20 08:37 04/13/20 08:37 04/13/20 08:37 04/13/20 08:37 - General General appearance: Appears well, Alert In distress: None - Respiratory Respiratory status: No respiratory distress Chest status: Nontender Breath sounds: Normal Chest palpation: Normal - Cardiovascular Rhythm: Regular Heart sounds: Normal auscultation - Abdominal Inspection: Normal Distension: No distension Bowel sounds: Normal Tenderness: Nontender Organomegaly: No organomegaly - Genitourinary External exam: Normal Speculum exam: Cervix closed, Other - No blood in the vaginal canal, scant white discharge noted Notes: Chaperoned by female nurse - Back Back: No: CVA tenderness - Extremities General upper extremity: Normal inspection, Nontender, Normal color, Normal ROM, Normal temperature General lower extremity: Normal inspection, Nontender, Normal color, Normal ROM, Normal temperature, Normal weight bearing. No: Fidel's sign - Neurological Neuro grossly intact: Yes Cognition: Normal Orientation: AAOx4 - Psychological Associated symptoms: Normal affect, Normal mood - Skin Skin Temperature: Warm Skin Moisture: Dry Skin Color: Normal Course - Re-evaluation Re-evalutation: 04/13/20 14:39 OB ultrasound within normal limits per radiologist. Strong hCG. No evidence of UTI. Normal exam with a closed office. Patient will observe pelvic rest and bed rest over the next couple of days, call her OB on Wednesday morning for follow- up. I advise she return here or any ER immediately with any new, persistent or worsening symptoms. She verbalized understood and agreed. - Vital Signs Vital signs: Temp Pulse Resp BP Pulse Ox 97.8 F 89 20 129/75 H 98 04/13/20 08:37 04/13/20 08:37 04/13/20 08:37 04/13/20 08:37 04/13/20 08:37 - Laboratory Result Diagrams: 04/13/20 08:40 04/13/20 08:40 Laboratory results interpreted by me: 04/13/20 04/13/20 08:40 08:40 WBC 11.0 H Sodium 134.0 L Carbon Dioxide 20 L BUN 6 L Creatinine 0.45 L Beta HCG, Quant 38435.00 H Discharge - Discharge Clinical Impression: 17 weeks gestation of , Vaginal bleeding during Condition: Stable Disposition: HOME, SELF-CARE Instructions: Pelvic Pain in ([facility]) Additional Instructions: Follow-up with your regular doctor in 2 to 3 days for reevaluation. Return here or any ER immediately with any new, persistent or worsening symptoms. Forms: Return to Work Referrals: JEROMY HAWTHORNE MD [Primary Care Provider] - Follow up as needed
--- NOTE | 2020-04-13 14:33 | RADIOLOGY REPORT (SQ) ---
EXAM DESCRIPTION: U/S OB LIMITED IMAGES COMPLETED DATE/TIME: 04/13/2020 2:07 pm REASON FOR STUDY: 15 weeks, bleeding, cramping . Serum beta HCG 61,649. COMPARISON: None. TECHNIQUE: Limited transabdominal grayscale ultrasound for evaluation of specific requested obstetri sandra parameters. LIMITATIONS: None. FINDINGS: CERVICAL LENGTH: 3.4 cm. MVP: 3.6 x 5.0 cm cm. FHR: 162 beats per minute. PRESENTATION: Vertex PLACENTA: Posterior ANATOMY: Not assessed OTHER: EGA 17 weeks 0 days. ALANA 09/21/2020. IMPRESSION: LIMITED OBSTETRICAL ULTRASOUND WITH MEASURED PARAMETERS DELINEATED ABOVE. Trimester of : Second trimester - 13 weeks 1 day to 27 weeks 6 days. TECHNICAL DOCUMENTATION: JOB ID: [id number] [email or web address]- All Rights Reserved Reading location - IP/workstation name: [email or web address]
[2020-04-13 14:56] VITALS: BP 132/78
== END 2020-04-13 14:57 | disposition home or self-care (01) ==
LOC: ER 08:32
DX: O46.92 Antepartum hemorrhage, unspecified, second trimester (principal); O99.282 Endocrine, nutritional and metabolic diseases complicating pregnancy, second trimester; E28.2 Polycystic ovarian syndrome; O16.2 Unspecified maternal hypertension, second trimester; O26.892 Other specified pregnancy related conditions, second trimester; R10.30 Lower abdominal pain, unspecified; R35.0 Frequency of micturition; Z3A.17 17 weeks gestation of pregnancy
CPT/HCPCS: 36415; 76815; 80053; 81001; 83690; 84702; 85025; 99284

== ENCOUNTER 2020-07-01 17:04 | Outpatient (CLI) | payer OTHER, MEDICAID ==
[2020-07-01 17:44] LABS: APPEARANCE,URINE CLOUDY; BILIRUBIN,URINE NEGATIVE (NEGATIVE); COLOR,URINE YELLOW; GLUCOSE, URINE NEGATIVE (NEGATIVE); KETONES,URINE NEGATIVE (NEGATIVE); LEUKOCYTE ESTERASE,URINE MODERATE (NEGATIVE); NITRITE,URINE NEGATIVE (NEGATIVE); PROTEIN,URINE 30 mg/dL (NEGATIVE); URINE SPECIFIC GRAVITY 1.024; UROBILINOGEN,URINE NEGATIVE mg/dL (<2.0)
[2020-07-01 17:59] LABS: URINE AMPHETAMINES SCREEN NEGATIVE; URINE BARBITURATES SCREEN NEGATIVE; URINE BENZODIAZEPINES SCREEN NEGATIVE; URINE COCAINE SCREEN NEGATIVE; URINE MARIJUANA (THC) SCREEN NEGATIVE; URINE METHADONE SCREEN NEGATIVE; URINE PHENCYCLIDINE SCREEN NEGATIVE
[2020-07-01 18:03] LABS: UR PRO/CREAT RATIO RESULT 0.1 mg/mg (0.0-0.2); URINE CREATININE 209.4 mg/dL (16-327); URINE PROTEIN 18.6 mg/dL (<12)
[2020-07-01] MEDS ORDERED: RINGERS SOLUTION,LACTATED 1,000 ML IV PRN (18:25)
[2020-07-01] MEDS ORDERED: ACETAMINOPHEN 325 MG TABLET PO ONE (18:26)
[2020-07-01] MEDS ORDERED: ACETAMINOPHEN 325 MG TABLET ONE (18:31)
[2020-07-01 19:00] LABS: ALBUMIN 3.3 g/dL (3.5-5.0); ALKALINE PHOSPHATASE 79 U/L (38-126); ANION GAP 6 (5-19); ASPARTATE AMINO TRANSFERASE 15 U/L (14-36); BILIRUBIN,DIRECT 0.2 mg/dL (0.0-0.4); BILIRUBIN,TOTAL 0.5 mg/dL (0.2-1.3); BLOOD UREA NITROGEN 6 mg/dL (7-20); CARBON DIOXIDE 24 mmol/L (22-30); CHLORIDE 105 mmol/L (98-107); GLUCOSE 140 mg/dL (75-110); POTASSIUM 3.8 mmol/L (3.6-5.0); TOTAL PROTEIN 6.1 g/dL (6.3-8.2); URIC ACID 4.4 mg/dL (2.5-6.2)
[2020-07-01 19:07] LABS: ABSOLUTE EOSINOPHILS # (AUTO) 0.2 10^3/uL (0.0-0.6); ABSOLUTE LYMPHOCYTES (AUTO) 1.5 10^3/uL (0.5-4.7); ABSOLUTE MONOCYTES (AUTO) 0.9 10^3/uL (0.1-1.4); ABSOLUTE NEUT (AUTO) 7.3 10^3/uL (1.7-8.2); BASOPHILS % (AUTO) 0.2 % (0-2); HEMATOCRIT 31.8 % (36.0-47.0); HEMOGLOBIN 11.2 g/dL (12.0-15.5); LYMPHOCYTES % (AUTO) 15.6 % (13-45); MEAN CORPUSCULAR HEMOGLOBIN 30.1 pg (27.0-33.4); MEAN CORPUSCULAR HGB CONC 35.3 g/dL (32.0-36.0); MEAN CORPUSCULAR VOLUME 85 fl (80-97); MONOCYTES % (AUTO) 8.9 % (3-13); PLATELET COUNT 248 10^3/uL (150-450); RED BLOOD COUNT 3.73 10^6/uL (3.72-5.28); RED CELL DISTRIBUTION WIDTH 13.9 % (11.5-14.0); SEGMENTED NEUTROPHILS % (AUTO) 73.3 % (42-78); TOTAL CELLS COUNTED % (AUTO) 100 %; WHITE BLOOD COUNT 9.9 10^3/uL (4.0-10.5)
[2020-07-01 19:52] LABS: BACTERIA (WET MOUNT) 4+ BACTERIA SEEN; EPITHELIALS (WET MOUNT) 3+ EPITHELIALS SEEN; T.VAGINALIS (WET MOUNT) NO TRICHOMONAS SEEN; WBCS (WET MOUNT) 3+ WBCS SEEN; YEAST (WET MOUNT) NO YEAST SEEN
[2020-07-01] MEDS ORDERED: METRONIDAZOLE 500 MG TABLET PO ONE (20:02)
[2020-07-01] MEDS ORDERED: METRONIDAZOLE 500 MG TABLET ONE (20:09)
[2020-07-01 21:18] LABS: CHLAM PCR NOT DETECTED (NOT DETECT)
== END 2020-07-01 20:46 | disposition home or self-care (01) ==
LOC: LC 17:04
PROVIDERS: ATTEND Obstetrics & Gynecology
DX: O23.592 Infection of other part of genital tract in pregnancy, second trimester (principal); B96.89 Other specified bacterial agents as the cause of diseases classified elsewhere; O10.912 Unspecified pre-existing hypertension complicating pregnancy, second trimester; R51 Headache; H53.8 Other visual disturbances; Z3A.28 28 weeks gestation of pregnancy; Z79.899 Other long term (current) drug therapy
CPT/HCPCS: 36415; 80053; 80307; 81001; 82570; 83615; 84156; 84550; 85025; 87210; 87491; 87591

== ENCOUNTER 2020-07-09 14:48 | Outpatient (CLI) | payer OTHER, MEDICAID ==
[2020-07-09 16:09] LABS: APPEARANCE,URINE CLEAR; BILIRUBIN,URINE NEGATIVE (NEGATIVE); COLOR,URINE YELLOW; GLUCOSE, URINE NEGATIVE (NEGATIVE); KETONES,URINE NEGATIVE (NEGATIVE); LEUKOCYTE ESTERASE,URINE TRACE (NEGATIVE); NITRITE,URINE NEGATIVE (NEGATIVE); PROTEIN,URINE NEGATIVE (NEGATIVE); URINE SPECIFIC GRAVITY 1.014; UROBILINOGEN,URINE NEGATIVE mg/dL (<2.0)
[2020-07-09 16:24] LABS: URINE AMPHETAMINES SCREEN NEGATIVE; URINE BARBITURATES SCREEN NEGATIVE; URINE BENZODIAZEPINES SCREEN NEGATIVE; URINE COCAINE SCREEN NEGATIVE; URINE MARIJUANA (THC) SCREEN NEGATIVE; URINE METHADONE SCREEN NEGATIVE; URINE PHENCYCLIDINE SCREEN NEGATIVE
[2020-07-09 16:29] LABS: 24 HOUR URINE PROTEIN RESULT 143 mg/day (42-225); URINE PROTEIN 11.2 mg/dL (<12)
[2020-07-09 17:35] LABS: HEMATOCRIT 33.3 % (36.0-47.0); HEMOGLOBIN 11.7 g/dL (12.0-15.5); MEAN CORPUSCULAR HEMOGLOBIN 30.2 pg (27.0-33.4); MEAN CORPUSCULAR HGB CONC 35.2 g/dL (32.0-36.0); MEAN CORPUSCULAR VOLUME 86 fl (80-97); PLATELET COUNT 234 10^3/uL (150-450); RED BLOOD COUNT 3.87 10^6/uL (3.72-5.28); RED CELL DISTRIBUTION WIDTH 14.2 % (11.5-14.0); WHITE BLOOD COUNT 11.3 10^3/uL (4.0-10.5)
[2020-07-09 17:58] LABS: ALBUMIN 3.7 g/dL (3.5-5.0); ALKALINE PHOSPHATASE 105 U/L (38-126); ANION GAP 11 (5-19); ASPARTATE AMINO TRANSFERASE 15 U/L (14-36); BILIRUBIN,DIRECT 0.2 mg/dL (0.0-0.4); BILIRUBIN,TOTAL 0.7 mg/dL (0.2-1.3); BLOOD UREA NITROGEN 6 mg/dL (7-20); CALCIUM 8.9 mg/dL (8.4-10.2); CARBON DIOXIDE 19 mmol/L (22-30); CHLORIDE 106 mmol/L (98-107); GLUCOSE 112 mg/dL (75-110); TOTAL PROTEIN 6.3 g/dL (6.3-8.2); URIC ACID 4.8 mg/dL (2.5-6.2)
== END 2020-07-09 16:06 | disposition home or self-care (01) ==
LOC: LC 14:48
PROVIDERS: ATTEND Obstetrics & Gynecology
DX: O16.3 Unspecified maternal hypertension, third trimester (principal); Z02.83 Encounter for blood-alcohol and blood-drug test; Z3A.29 29 weeks gestation of pregnancy
CPT/HCPCS: 36415; 80053; 80307; 81001; 83615; 84156; 84550; 85027

== ENCOUNTER 2020-08-12 11:14 | Outpatient (CLI) | payer OTHER, MEDICAID ==
[2020-08-12] MEDS ORDERED: ACETAMINOPHEN 325 MG TABLET PO ONE (11:36)
[2020-08-12] MEDS ORDERED: ACETAMINOPHEN 325 MG TABLET ONE (11:37)
[2020-08-12 12:00] LABS: ABSOLUTE EOSINOPHILS # (AUTO) 0.2 10^3/uL (0.0-0.6); ABSOLUTE LYMPHOCYTES (AUTO) 1.5 10^3/uL (0.5-4.7); ABSOLUTE NEUT (AUTO) 7.8 10^3/uL (1.7-8.2); BASOPHILS % (AUTO) 0.2 % (0-2); EOSINOPHILS % (AUTO) 1.7 % (0-6); HEMATOCRIT 32.4 % (36.0-47.0); HEMOGLOBIN 11.6 g/dL (12.0-15.5); LYMPHOCYTES % (AUTO) 14.3 % (13-45); MEAN CORPUSCULAR HEMOGLOBIN 29.9 pg (27.0-33.4); MEAN CORPUSCULAR HGB CONC 35.7 g/dL (32.0-36.0); MEAN CORPUSCULAR VOLUME 84 fl (80-97); MONOCYTES % (AUTO) 9.8 % (3-13); PLATELET COUNT 258 10^3/uL (150-450); RED BLOOD COUNT 3.87 10^6/uL (3.72-5.28); RED CELL DISTRIBUTION WIDTH 13.7 % (11.5-14.0); TOTAL CELLS COUNTED % (AUTO) 100 %; WHITE BLOOD COUNT 10.5 10^3/uL (4.0-10.5)
[2020-08-12 12:13] LABS: APPEARANCE,URINE SLIGHTLY-CLOUDY; BILIRUBIN,URINE NEGATIVE (NEGATIVE); COLOR,URINE YELLOW; GLUCOSE, URINE NEGATIVE (NEGATIVE); KETONES,URINE TRACE mg/dL (NEGATIVE); LEUKOCYTE ESTERASE,URINE MODERATE (NEGATIVE); NITRITE,URINE NEGATIVE (NEGATIVE); PROTEIN,URINE NEGATIVE (NEGATIVE); URINE SPECIFIC GRAVITY 1.017; UROBILINOGEN,URINE NEGATIVE mg/dL (<2.0)
[2020-08-12 12:18] LABS: ALBUMIN 3.3 g/dL (3.5-5.0); ALKALINE PHOSPHATASE 125 U/L (38-126); ANION GAP 10 (5-19); ASPARTATE AMINO TRANSFERASE 17 U/L (14-36); BILIRUBIN,DIRECT 0.2 mg/dL (0.0-0.4); BILIRUBIN,TOTAL 0.7 mg/dL (0.2-1.3); BLOOD UREA NITROGEN 9 mg/dL (7-20); CALCIUM 9.2 mg/dL (8.4-10.2); CARBON DIOXIDE 18 mmol/L (22-30); CHLORIDE 107 mmol/L (98-107); GLUCOSE 130 mg/dL (75-110); POTASSIUM 4.2 mmol/L (3.6-5.0); TOTAL PROTEIN 6.1 g/dL (6.3-8.2); URIC ACID 4.2 mg/dL (2.5-6.2)
[2020-08-12 12:34] LABS: URINE AMPHETAMINES SCREEN NEGATIVE; URINE BARBITURATES SCREEN NEGATIVE; URINE BENZODIAZEPINES SCREEN NEGATIVE; URINE COCAINE SCREEN NEGATIVE; URINE MARIJUANA (THC) SCREEN NEGATIVE; URINE METHADONE SCREEN NEGATIVE; URINE PHENCYCLIDINE SCREEN NEGATIVE
[2020-08-12 12:42] LABS: UR PRO/CREAT RATIO RESULT 0.1 mg/mg (0.0-0.2); URINE CREATININE 95.5 mg/dL (16-327); URINE PROTEIN 13.4 mg/dL (<12)
== END 2020-08-12 13:04 | disposition home or self-care (01) ==
LOC: LC 11:14
PROVIDERS: ATTEND Obstetrics & Gynecology
DX: O13.3 Gestational [pregnancy-induced] hypertension without significant proteinuria, third trimester (principal); Z3A.33 33 weeks gestation of pregnancy; Z02.83 Encounter for blood-alcohol and blood-drug test
CPT/HCPCS: 36415; 59025; 80053; 80307; 81005; 82570; 83615; 84156; 84550; 85025; 87086

== ENCOUNTER 2020-08-17 22:25 | Outpatient (CLI) | payer OTHER, MEDICAID ==
[2020-08-17 23:08] LABS: APPEARANCE,URINE CLOUDY; BILIRUBIN,URINE NEGATIVE (NEGATIVE); CALCIUM OXALATE CRYSTALS,URINE MODERATE /HPF; COLOR,URINE AMBER; GLUCOSE, URINE 50 mg/dL (NEGATIVE); KETONES,URINE 20 mg/dL (NEGATIVE); LEUKOCYTE ESTERASE,URINE NEGATIVE (NEGATIVE); NITRITE,URINE NEGATIVE (NEGATIVE); PROTEIN,URINE 100 mg/dL (NEGATIVE); URINE SPECIFIC GRAVITY 1.033; UROBILINOGEN,URINE NEGATIVE mg/dL (<2.0)
[2020-08-17 23:20] LABS: URINE AMPHETAMINES SCREEN NEGATIVE; URINE BARBITURATES SCREEN NEGATIVE; URINE BENZODIAZEPINES SCREEN NEGATIVE; URINE COCAINE SCREEN NEGATIVE; URINE MARIJUANA (THC) SCREEN NEGATIVE; URINE METHADONE SCREEN NEGATIVE; URINE PHENCYCLIDINE SCREEN NEGATIVE
[2020-08-17] MEDS ORDERED: RINGERS SOLUTION,LACTATED 1,000 ML IV PRN (23:56)
--- NOTE | 2020-08-18 00:20 | Non Stress Test Report ---
Non Stress Test Datetime Report Generated by CPN: 08/18/2020 00:20 DEMOGRAPHIC Test Number: 2 EGA NST: 34.5 EGA NST: 34.0 INDICATION Indication for Study (NST) Other: lc Indication for Study (NST) Other: IUP at 34.0, LC VITAL SIGNS Temperature - NST: 97.3 Pulse - NST: 99 RESP - NST: 16 NBPSYS NST: 118 NBPDIA NST: 60 URINE RESULTS Urine Protein, NST: Positive Urine Ketones - NST: Positive Urine Glucose - NST: Negative Urine Blood - NST: Negative MONITORING Monitor Explained: Monitor Explained; Test Explained; Patient Verbalized Understanding Monitor Explained: Monitor Explained; Test Explained; Patient Verbalized Understanding Time on Monitor: 08/17/2020 22:44 Time on Monitor: 08/12/2020 11:28 Time off Monitor: 08/18/2020 00:00 Time off Monitor: 08/12/2020 12:48 NST Duration: 76 NST Duration: 80 NST INTERVENTIONS NST Interventions: PO Hydration NST Interventions: PO Hydration Physician Notified NST: Physician Notified NST: APRASAD Vieyra BABY A: [id number] BABY A Movement : Present Movement : Present Contraction Frequency : 6-10 Contraction Frequency : irregular FHR Baseline : 145 Accelerations : 15X15 Accelerations : 15X15 Decelerations : None Decelerations : None Variability : Moderate 6-25bpm Variability : Moderate 6-25bpm NST Review: Meets Criteria for Reactive NST NST Review: Meets Criteria for Reactive NST NST Review and Verified By : Quinten Ly RN NST Review and Verified By : ARY Kearney NST Results: Reactive NST Results: Reactive NST REPORT Report Trigger: Send Report
== END 2020-08-18 00:30 | disposition home or self-care (01) ==
LOC: LC 22:25
PROVIDERS: ATTEND Obstetrics & Gynecology
DX: O47.03 False labor before 37 completed weeks of gestation, third trimester (principal); O24.415 Gestational diabetes mellitus in pregnancy, controlled by oral hypoglycemic drugs; O23.43 Unspecified infection of urinary tract in pregnancy, third trimester; O16.3 Unspecified maternal hypertension, third trimester; Z3A.34 34 weeks gestation of pregnancy
CPT/HCPCS: 59025; 80307; 81001; 84112

== ENCOUNTER 2020-08-27 12:22 | Outpatient (CLI) | payer MEDICAID, OTHER ==
[2020-08-27] MEDS ORDERED: ACETAMINOPHEN 325 MG TABLET PO PRN (12:41)
[2020-08-27 13:12] LABS: APPEARANCE,URINE SLIGHTLY-CLOUDY; BILIRUBIN,URINE NEGATIVE (NEGATIVE); COLOR,URINE YELLOW; GLUCOSE, URINE NEGATIVE (NEGATIVE); KETONES,URINE NEGATIVE (NEGATIVE); LEUKOCYTE ESTERASE,URINE MODERATE (NEGATIVE); NITRITE,URINE NEGATIVE (NEGATIVE); PROTEIN,URINE NEGATIVE (NEGATIVE); URINE SPECIFIC GRAVITY 1.012; UROBILINOGEN,URINE NEGATIVE mg/dL (<2.0)
[2020-08-27 13:24] LABS: HEMATOCRIT 33.5 % (36.0-47.0); HEMOGLOBIN 11.6 g/dL (12.0-15.5); MEAN CORPUSCULAR HGB CONC 34.8 g/dL (32.0-36.0); MEAN CORPUSCULAR VOLUME 84 fl (80-97); PLATELET COUNT 222 10^3/uL (150-450); RED BLOOD COUNT 4.01 10^6/uL (3.72-5.28); RED CELL DISTRIBUTION WIDTH 13.7 % (11.5-14.0); WHITE BLOOD COUNT 8.6 10^3/uL (4.0-10.5)
[2020-08-27 13:30] LABS: URINE AMPHETAMINES SCREEN NEGATIVE; URINE BARBITURATES SCREEN NEGATIVE; URINE BENZODIAZEPINES SCREEN NEGATIVE; URINE COCAINE SCREEN NEGATIVE; URINE MARIJUANA (THC) SCREEN NEGATIVE; URINE METHADONE SCREEN NEGATIVE; URINE PHENCYCLIDINE SCREEN NEGATIVE
[2020-08-27 13:37] LABS: UR PRO/CREAT RATIO RESULT 0.2 mg/mg (0.0-0.2); URINE PROTEIN 13.2 mg/dL (<12)
[2020-08-27 13:44] LABS: ALBUMIN 3.5 g/dL (3.5-5.0); ALKALINE PHOSPHATASE 151 U/L (38-126); ANION GAP 9 (5-19); ASPARTATE AMINO TRANSFERASE 20 U/L (14-36); BILIRUBIN,TOTAL 0.6 mg/dL (0.2-1.3); BLOOD UREA NITROGEN 7 mg/dL (7-20); CALCIUM 9.2 mg/dL (8.4-10.2); CARBON DIOXIDE 18 mmol/L (22-30); CHLORIDE 108 mmol/L (98-107); GLUCOSE 119 mg/dL (75-110); POTASSIUM 4.3 mmol/L (3.6-5.0); TOTAL PROTEIN 6.5 g/dL (6.3-8.2); URIC ACID 4.5 mg/dL (2.5-6.2)
--- NOTE | 2020-08-27 13:57 | Non Stress Test Report ---
Non Stress Test Datetime Report Generated by CPN: 08/27/2020 13:57 DEMOGRAPHIC EGA NST: 36.1 INDICATION Indication for Study (NST) Other: PIH workup VITAL SIGNS Temperature - NST: 97.3 Pulse - NST: 111 RESP - NST: 18 NBPSYS NST: 128 NBPDIA NST: 71 MONITORING Time on Monitor: 08/27/2020 12:51 Time off Monitor: 08/27/2020 13:11 NST Duration: 20 NST INTERVENTIONS NST Interventions: PO Hydration; Reposition Patient Physician Notified NST: Dr. BABY A: [id number] BABY A Movement : Present Contraction Frequency : irregular FHR Baseline : 140 Accelerations : 15X15 Decelerations : None Variability : Moderate 6-25bpm NST Review: Meets Criteria for Reactive NST NST Review and Verified By : Bill Pinon RN NSMaura Results: Reactive NST REPORT Report Trigger: Send Report
== END 2020-08-27 14:02 | disposition home or self-care (01) ==
LOC: LC 12:22
PROVIDERS: ATTEND Obstetrics & Gynecology
DX: O13.3 Gestational [pregnancy-induced] hypertension without significant proteinuria, third trimester (principal); Z3A.36 36 weeks gestation of pregnancy
CPT/HCPCS: 36415; 59025; 80053; 80307; 81005; 82570; 83615; 84156; 84550; 85027

== ENCOUNTER 2020-08-30 14:58 | Outpatient (CLI) | payer OTHER, MEDICAID ==
[2020-08-30 15:45] LABS: ABSOLUTE BASOPHILS # (AUTO) 0.1 10^3/uL (0.0-0.2); ABSOLUTE EOSINOPHILS # (AUTO) 0.2 10^3/uL (0.0-0.6); ABSOLUTE LYMPHOCYTES (AUTO) 1.5 10^3/uL (0.5-4.7); ABSOLUTE MONOCYTES (AUTO) 0.9 10^3/uL (0.1-1.4); ABSOLUTE NEUT (AUTO) 6.3 10^3/uL (1.7-8.2); BASOPHILS % (AUTO) 0.9 % (0-2); HEMATOCRIT 32.7 % (36.0-47.0); HEMOGLOBIN 11.3 g/dL (12.0-15.5); LYMPHOCYTES % (AUTO) 16.5 % (13-45); MEAN CORPUSCULAR HEMOGLOBIN 28.9 pg (27.0-33.4); MEAN CORPUSCULAR HGB CONC 34.7 g/dL (32.0-36.0); MEAN CORPUSCULAR VOLUME 83 fl (80-97); MONOCYTES % (AUTO) 10.4 % (3-13); PLATELET COUNT 212 10^3/uL (150-450); RED BLOOD COUNT 3.92 10^6/uL (3.72-5.28); RED CELL DISTRIBUTION WIDTH 13.6 % (11.5-14.0); SEGMENTED NEUTROPHILS % (AUTO) 70.2 % (42-78); TOTAL CELLS COUNTED % (AUTO) 100 %
[2020-08-30] MEDS ORDERED: ACETAMINOPHEN 325 MG TABLET PO ONE (16:04)
[2020-08-30 16:06] LABS: ALBUMIN 3.1 g/dL (3.5-5.0); ALKALINE PHOSPHATASE 163 U/L (38-126); ANION GAP 9 (5-19); ASPARTATE AMINO TRANSFERASE 17 U/L (14-36); BILIRUBIN,TOTAL 0.6 mg/dL (0.2-1.3); BLOOD UREA NITROGEN 8 mg/dL (7-20); CALCIUM 8.7 mg/dL (8.4-10.2); CARBON DIOXIDE 17 mmol/L (22-30); CHLORIDE 109 mmol/L (98-107); GLUCOSE 91 mg/dL (75-110); POTASSIUM 4.3 mmol/L (3.6-5.0); URIC ACID 4.5 mg/dL (2.5-6.2)
[2020-08-30] MEDS ORDERED: ACETAMINOPHEN 325 MG TABLET ONE (16:06)
[2020-08-30 16:11] LABS: UR PRO/CREAT RATIO RESULT 0.3 mg/mg (0.0-0.2); URINE AMPHETAMINES SCREEN NEGATIVE; URINE BARBITURATES SCREEN NEGATIVE; URINE BENZODIAZEPINES SCREEN NEGATIVE; URINE COCAINE SCREEN NEGATIVE; URINE CREATININE 39.6 mg/dL (16-327); URINE MARIJUANA (THC) SCREEN NEGATIVE; URINE METHADONE SCREEN NEGATIVE; URINE PHENCYCLIDINE SCREEN NEGATIVE
[2020-08-30] MEDS ORDERED: BETAMET ACET/BETAMET NA INJ 6 MG/1 ML IM ONE (16:30)
[2020-08-30] MEDS ORDERED: BETAMET ACET/BETAMET NA INJ 6 MG/1 ML ONE (16:44)
--- NOTE | 2020-08-30 17:10 | Non Stress Test Report ---
Non Stress Test Datetime Report Generated by CPN: 08/30/2020 17:10 DEMOGRAPHIC Test Number: 1 EGA NST: 36.4 INDICATION Indication for Study (NST) Other: Pre-e workup VITAL SIGNS Temperature - NST: 98.4 Pulse - NST: 82 RESP - NST: 20 NBPSYS NST: 130 NBPDIA NST: 80 MONITORING Monitor Explained: Monitor Explained; Test Explained; Patient Verbalized Understanding Time on Monitor: 08/30/2020 15:15 Time off Monitor: 08/30/2020 16:33 NST Duration: 78 NST INTERVENTIONS NST Interventions: PO Hydration; Reposition Patient Physician Notified NST: Larios MD BABY A: [id number] BABY A Movement : Present Contraction Frequency : none FHR Baseline : 145 Accelerations : 15X15 Decelerations : None Variability : Moderate 6-25bpm NST Review: Meets Criteria for Reactive NST NST Review and Verified By : ARY Vasquez Results: Reactive NST REPORT Report Trigger: Send Report
== END 2020-08-30 17:05 | disposition home or self-care (01) ==
LOC: LC 14:58
PROVIDERS: ATTEND Student in an Organized Health Care Education/Training Program
PROC: 4A1HXCZ Monitoring of Products of Conception, Cardiac Rate, External Approach (ICD-10-PCS; principal; 2020-08-30)
DX: O26.893 Other specified pregnancy related conditions, third trimester (principal); H53.8 Other visual disturbances; Z3A.36 36 weeks gestation of pregnancy; Z79.899 Other long term (current) drug therapy
CPT/HCPCS: 59025; 96372; 36415; 83615; 84156; 84550; 82570; 85025; 80053; 80307; J0702

== ENCOUNTER 2020-08-31 04:13 | Observation (INO) | payer MEDICAID, OTHER ==
[2020-08-31] MEDS ORDERED: BUTALB/ACETAMINOPHEN/CAFFEINE 1 TAB EACH PO ONE ×2 (04:57→05:08)
[2020-08-31] MEDS ORDERED: BUTALB/ACETAMINOPHEN/CAFFEINE 1 TAB EACH ONE (05:00)
[2020-08-31] MEDS ORDERED: MAG HYDROX/AL HYDROX/SIMETH SUSP 30 ML UDCUP ONE (05:00)
[2020-08-31] MEDS ORDERED: MAG HYDROX/AL HYDROX/SIMETH SUSP 30 ML UDCUP PO ONE ×2 (05:01→10:00)
[2020-08-31 05:21] LABS: ABSOLUTE LYMPHOCYTES (AUTO) 1.1 10^3/uL (0.5-4.7); ABSOLUTE MONOCYTES (AUTO) 0.6 10^3/uL (0.1-1.4); ABSOLUTE NEUT (AUTO) 10.8 10^3/uL (1.7-8.2); BASOPHILS % (AUTO) 0.4 % (0-2); EOSINOPHILS % (AUTO) 0.1 % (0-6); HEMATOCRIT 34.6 % (36.0-47.0); HEMOGLOBIN 11.6 g/dL (12.0-15.5); LYMPHOCYTES % (AUTO) 8.6 % (13-45); MEAN CORPUSCULAR HGB CONC 33.6 g/dL (32.0-36.0); MEAN CORPUSCULAR VOLUME 83 fl (80-97); MONOCYTES % (AUTO) 4.8 % (3-13); PLATELET COUNT 216 10^3/uL (150-450); RED BLOOD COUNT 4.15 10^6/uL (3.72-5.28); RED CELL DISTRIBUTION WIDTH 13.3 % (11.5-14.0); SEGMENTED NEUTROPHILS % (AUTO) 86.1 % (42-78); TOTAL CELLS COUNTED % (AUTO) 100 %; WHITE BLOOD COUNT 12.5 10^3/uL (4.0-10.5)
[2020-08-31 06:17] LABS: ALBUMIN 3.3 g/dL (3.5-5.0); ALKALINE PHOSPHATASE 170 U/L (38-126); ANION GAP 11 (5-19); ASPARTATE AMINO TRANSFERASE 17 U/L (14-36); BILIRUBIN,TOTAL 0.7 mg/dL (0.2-1.3); BLOOD UREA NITROGEN 10 mg/dL (7-20); CALCIUM 9.2 mg/dL (8.4-10.2); CARBON DIOXIDE 15 mmol/L (22-30); CHLORIDE 110 mmol/L (98-107); GLUCOSE 114 mg/dL (75-110); POTASSIUM 4.3 mmol/L (3.6-5.0)
[2020-08-31 07:45] LABS: BACTERIA (WET MOUNT) 3+ BACTERIA SEEN; EPITHELIALS (WET MOUNT) 3+ EPITHELIALS SEEN; RBCS (WET MOUNT) RARE RBCS SEEN; T.VAGINALIS (WET MOUNT) NO TRICHOMONAS SEEN; WBCS (WET MOUNT) 1+ WBCS SEEN; YEAST (WET MOUNT) NO YEAST SEEN
[2020-08-31] MEDS ORDERED: FAMOTIDINE INJ/PF 20 MG/2 ML SDV IV ONE ×2 (08:01→08:02)
--- NOTE | 2020-08-31 08:17 | Admission Physical ---
Datetime Report Generated by CPN: 08/31/2020 08:17 CURRENT ADMISSION Chief Complaint: Signs/Symptoms Gestational HTN Indication for Induction: Not Applicable Admit Impression : , Intrauterine ; No Active Labor; Intact Membranes; Observation/Evaluation Admit Plan: Admit to Unit; Observation/Evaluation ALLERGIES Medication Allergies: No Medication Allergies: No Known Allergies (08/31/2020) Latex: No Latex Allergies Food Allergies: denies Environmental Allergies: denies OBSTETRICAL HISTORY EDC: 09/23/2020 00:00 : 4 Para: 1 Term: 1 : 0 SAB: 1 IAB: 1 Ectopic: 0 Livin (Annotations: Data stored by CPN on behalf of user) Cesareans: 0 VBACs: 0 Multiple Births: 0 Gestational Diabetes: Yes Rh Sensitization: No Incompetent Cervix: No MATTHEW: No Infertility: No ART Treatment: No Uterine Anomaly: No IUGR: No Hx Previous C/S: No Macrosomia: No Hx Loss/Stillborn: No PIH: Yes Hx : No Placenta Previa/Abruption: No Depression/PP Depression: No PTL/PROM: No Post Hemorrhage: No Current Procedures: Ultrasound; NST Obstetrical History Comments: patient was told that first baby was almost a shoulder dystocia and to watch efw in the future for deliveries G1-2010 SAB with D_C G2- 2012 39.6 Epidural Female G3- 2015 EAB G4- Current SEE RECORDS Alcohol: No Marijuana : No Cocaine: No Other Illicit Drugs: No Cigarettes: Never Smoker. 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 Heart Disease: No Hosp/Surgery: Yes Autoimmune Disorder: No Anesthetic Complications: No Kidney Disease: No Abnormal Pap Smear: No Neuro/Epilepsy: No Psychiatric Disorders: No Other Medical Diseases: No Hepatitis/Liver Disease: No Significant Family History: No Varicosities/Phlebitis: No Trauma/Violence : No Thyroid Dysfunction: No Medical History Comments: gallbladder removed during early , childbirth x 1, CHTN, GDM INFECTIOUS HISTORY Gonorrhea: No Genital Herpes: No Chlamydia: Yes Tuberculosis: No Syphilis: No Hepatitis: No HIV/AIDS Exposure: No Rash or Viral Illness: No HPV: No Infectious History Comments: chlamydia 2008 trich 2008 PHYSICAL EXAM General: Normal HEENT: Normal Neurologic: Normal Thyroid: Deferred Heart: Normal Lungs: Normal Breast: Deferred Back: Normal Abdomen: Normal Genitourinary Exam: Normal Extremities: Normal DTRs: Normal Pelvic Type: Adequate Vital Signs: Reviewed VAGINAL EXAM Dilatation: ft Contraction Comments: irregular MEMBRANES Membranes: Intact FETUS A EGA: 36.5 Monitoring: External US Accelerations: 15X15 Decelerations: None FHR Category: Category I Presentation: Vertex Admit Comment: 25yo (EAB x 1, SAB x1, 2013) at 36+5ega presents for HOBSON. she is still collecting 24 hour UTP and will continue now. Fioricet given for HOBSON and now improved. She had severe range BP (initially due to sitting up in bed and when pelvic exam was done) which spontaneously resolved WITHOUT meds. She has GDM on Glyburide. Celestone given yesterday and will repeat today. Had a cholecystectomy at the beginning of . MFM following GDM. Unable to find baseline 24 hr UTP. However P:C ratios seem to be increasing slightly so she likely is developing PreE. Would like to delay delivery as long as possible due to GDM and increasing risk of respiratory complications in . Will await 24 hour UTP and repeat steroid dose and 24 hr UTP results. May need to be induced between now and 37wks. FETUS B Monitoring: External US PLANS FOR LABOR AND DELIVERY Labor and Delivery: None Pain Management: Natural Feeding Preference: Breast Benefit of Breast Feed Discussed: Yes Circumcision: N/A INFORMED CONSENT Informed Consent Obtained: Vaginal Delivery; Risks, Benefits and Alternatives Discussed Signature: with User ID: [email or web address]
[2020-08-31 09:04] LABS: CHLAM PCR NOT DETECTED (NOT DETECT)
[2020-08-31] MEDS ORDERED: METOCLOPRAMIDE HCL ORAL SOLN 10 MG/10 ML UDCUP PO ONE (10:00)
[2020-08-31] MEDS ORDERED: LIDOCAINE 2% VISCOUS SOLN 15 ML UDCUP PO ONE (10:00)
[2020-08-31] MEDS ORDERED: ACETAMINOPHEN 325 MG TABLET PO ONE (13:23)
[2020-08-31] MEDS ORDERED: ACETAMINOPHEN 325 MG TABLET ONE (13:26)
[2020-08-31] MEDS ORDERED: BETAMET ACET/BETAMET NA INJ 6 MG/1 ML ONE (17:52)
[2020-08-31 17:53] LABS: 24 HOUR URINE PROTEIN RESULT 318 mg/day (42-225); URINE PROTEIN 10.8 mg/dL (<12)
[2020-08-31] MEDS ORDERED: BETAMET ACET/BETAMET NA INJ 6 MG/1 ML IM ONE (18:30)
--- NOTE | 2020-09-02 11:45 | Non Stress Test Report ---
Non Stress Test Datetime Report Generated by CPN: 09/02/2020 11:44 DEMOGRAPHIC EGA NST: 36.5 MONITORING Monitor Explained: Monitor Explained; Test Explained; Patient Verbalized Understanding Time on Monitor: 08/31/2020 07:22 Time off Monitor: 08/31/2020 08:00 NST Duration: 38 NST INTERVENTIONS NST Interventions: PO Hydration Physician Notified NST: Dr Guzman BABY A: [id number] BABY A Movement : Present Contraction Frequency : irregular FHR Baseline : 130 Accelerations : 15X15 Decelerations : None Variability : Moderate 6-25bpm NST Review: Meets Criteria for Reactive NST NST Review and Verified By : TMartin,RNC NST Results: Reactive NST REPORT Report Trigger: Send Report
== END 2020-08-31 18:34 | disposition home or self-care (01) ==
LOC: LC 04:13 → LR 06:40
PROVIDERS: ADMIT Student in an Organized Health Care Education/Training Program; ATTEND Student in an Organized Health Care Education/Training Program
DX: O13.3 Gestational [pregnancy-induced] hypertension without significant proteinuria, third trimester (principal); O24.419 Gestational diabetes mellitus in pregnancy, unspecified control; O26.893 Other specified pregnancy related conditions, third trimester; H53.8 Other visual disturbances; R51.9 Headache, unspecified; Z3A.36 36 weeks gestation of pregnancy; Z79.899 Other long term (current) drug therapy
CPT/HCPCS: 96372; 86900; 86901; 36415; 87210; 86850; 82962; 83615; 84156; 84550; 85025; 87077; 86592; 80053; 87081; 87491; 87591; 59025; G0378; J3490 ×4; J0702; S0028

== ENCOUNTER 2020-09-02 11:45 | Inpatient (IN) | payer MEDICAID, OTHER ==
[2020-09-02] MEDS ORDERED: RINGERS SOLUTION,LACTATED 1,000 ML IV PRN (11:55)
[2020-09-02] MEDS ORDERED: RINGERS SOLUTION,LACTATED 1,000 ML IV ONE (11:55)
[2020-09-02] MEDS ORDERED: DEXTROSE 40% GEL 15 GM TUBE PO PRN ×2 (11:59)
[2020-09-02] MEDS ORDERED: DEXTROSE 50%-WATER 25 GM/50 ML DISP.SYRIN IV PRN ×2 (11:59)
[2020-09-02] MEDS ORDERED: GLUCAGON,HUMAN RECOMB 1 MG INJ IM PRN (11:59)
[2020-09-02] MEDS ORDERED: HYDRALAZINE HCL INJ/PF 20 MG/1 ML SDV IV ONE (12:08)
[2020-09-02] MEDS ORDERED: HYDRALAZINE HCL INJ/PF 20 MG/1 ML SDV ONE (12:09)
[2020-09-02 12:33] LABS: ABSOLUTE EOSINOPHILS # (AUTO) 0.1 10^3/uL (0.0-0.6); ABSOLUTE MONOCYTES (AUTO) 1.7 10^3/uL (0.1-1.4); ABSOLUTE NEUT (AUTO) 7.1 10^3/uL (1.7-8.2); BASOPHILS % (AUTO) 0.4 % (0-2); HEMATOCRIT 32.2 % (36.0-47.0); HEMOGLOBIN 11.4 g/dL (12.0-15.5); LYMPHOCYTES % (AUTO) 18.7 % (13-45); MEAN CORPUSCULAR HEMOGLOBIN 29.4 pg (27.0-33.4); MEAN CORPUSCULAR HGB CONC 35.3 g/dL (32.0-36.0); MEAN CORPUSCULAR VOLUME 83 fl (80-97); MONOCYTES % (AUTO) 15.4 % (3-13); PLATELET COUNT 269 10^3/uL (150-450); RED BLOOD COUNT 3.87 10^6/uL (3.72-5.28); RED CELL DISTRIBUTION WIDTH 13.6 % (11.5-14.0); SEGMENTED NEUTROPHILS % (AUTO) 64.5 % (42-78); TOTAL CELLS COUNTED % (AUTO) 100 %; WHITE BLOOD COUNT 10.9 10^3/uL (4.0-10.5)
[2020-09-02 12:50] LABS: ALBUMIN 3.6 g/dL (3.5-5.0); ALKALINE PHOSPHATASE 170 U/L (38-126); ANION GAP 8 (5-19); ASPARTATE AMINO TRANSFERASE 18 U/L (14-36); BILIRUBIN,TOTAL 0.5 mg/dL (0.2-1.3); BLOOD UREA NITROGEN 14 mg/dL (7-20); CALCIUM 9.9 mg/dL (8.4-10.2); CARBON DIOXIDE 20 mmol/L (22-30); CHLORIDE 107 mmol/L (98-107); GLUCOSE 89 mg/dL (75-110); TOTAL PROTEIN 6.6 g/dL (6.3-8.2); URIC ACID 5.6 mg/dL (2.5-6.2)
--- NOTE | 2020-09-02 12:52 | Admission Physical ---
Datetime Report Generated by CPN: 09/02/2020 12:52 CURRENT ADMISSION Chief Complaint: Signs/Symptoms Gestational HTN Chief Complaint Other: elevated BP Indication for Induction: Not Applicable Indication for Induction- Other: CHTN w/ superimposed Pre-eclampsia at 37 wks. GBS+, Hx of GDM Admit Impression : Term, Intrauterine ; No Active Labor; Induction of Labor Admit Plan: Admit to Unit; Initiate Labor Induction Protocol ALLERGIES Medication Allergies: No Medication Allergies: No Known Allergies (09/02/2020) Latex: No Latex Allergies Food Allergies: denies Environmental Allergies: denies OBSTETRICAL HISTORY EDC: 09/23/2020 00:00 : 4 Para: 1 Term: 1 : 0 SAB: 1 IAB: 1 Ectopic: 0 Livin (Annotations: Data stored by CPN on behalf of user) Cesareans: 0 VBACs: 0 Multiple Births: 0 Gestational Diabetes: Yes Rh Sensitization: No Incompetent Cervix: No MATTHEW: No Infertility: No ART Treatment: No Uterine Anomaly: No IUGR: No Hx Previous C/S: No Macrosomia: No Hx Loss/Stillborn: No PIH: Yes Hx : No Placenta Previa/Abruption: No Depression/PP Depression: No PTL/PROM: No Post Hemorrhage: No Current Procedures: Ultrasound; NST Obstetrical History Comments: patient was told that first baby was almost a shoulder dystocia and to watch efw in the future for deliveries -2010 SAB with D_C 2012 39.6 Epidural Female 2015 EAB G4- Current SEE RECORDS Alcohol: No Marijuana : No Cocaine: No Other Illicit Drugs: No Cigarettes: Never Smoker. 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: No Heart Disease: No Hosp/Surgery: Yes Autoimmune Disorder: No Anesthetic Complications: No Kidney Disease: No Abnormal Pap Smear: No Neuro/Epilepsy: No Psychiatric Disorders: No Other Medical Diseases: No Hepatitis/Liver Disease: No Significant Family History: No Varicosities/Phlebitis: No Trauma/Violence : No Thyroid Dysfunction: No Medical History Comments: gallbladder removed during early , childbirth x 1, CHTN, GDM, D_C INFECTIOUS HISTORY Gonorrhea: No Genital Herpes: No Chlamydia: Yes Tuberculosis: No Syphilis: No Hepatitis: No HIV/AIDS Exposure: No Rash or Viral Illness: No HPV: No Infectious History Comments: chlamydia 2009 trich 2009 PHYSICAL EXAM General: Normal HEENT: Normal Neurologic: Normal Thyroid: Normal Heart: Normal Lungs: Normal Breast: Normal Back: Normal Abdomen: Normal Genitourinary Exam: Normal Extremities: Normal DTRs: Normal Pelvic Type: Adequate Vital Signs: Reviewed VAGINAL EXAM Dilatation: ft Contraction Comments: irregular MEMBRANES Membranes: Intact FETUS A EGA: 36.5 Monitoring: External US Accelerations: 15X15 Decelerations: None FHR Category: Category I Presentation: Vertex Admit Comment: at 37 weeks, w/ CHTN and GDM on glyburide, seen at [facility] today w/ elevated BP's. Sent from [facility] office for IOL w/ superimposed pre-eclampsia. +GBS. Pt states she does have a headache w/ some scotomata but she has had this during her complaints and has not worsened. Took Amliodipine this morning. Will give IV Hydralazine, may start patient on Magnessium Sulfate. Labwork pending. Dr Lopez aware of patient status and agrees with plan of care. FETUS B Monitoring: External US PLANS FOR LABOR AND DELIVERY Labor and Delivery: None Pain Management: Natural Feeding Preference: Breast Benefit of Breast Feed Discussed: Yes Circumcision: N/A INFORMED CONSENT Informed Consent Obtained: Vaginal Delivery; Risks, Benefits and Alternatives Discussed Assignment: Amrita Lopez MD Signature: with User ID: [email or web address] : with User ID: [email or web address]
[2020-09-02] MEDS ORDERED: DINOPROSTONE 10 MG VAGINAL INSERT.SR PV PRN (13:22)
[2020-09-02] MEDS ORDERED: DINOPROSTONE 10 MG VAGINAL INSERT.SR ONE (13:25)
[2020-09-02] MEDS ORDERED: ACETAMINOPHEN 325 MG TABLET ONE ×2 (13:25→19:43)
[2020-09-02] MEDS: ACETAMINOPHEN 325 MG TABLET PO PRN ×2 (13:27→19:50)
--- NOTE | 2020-09-02 13:30 | L&D Progress Notes ---
PROGRESS NOTES Datetime Report Generated by CPN: 09/02/2020 13:30 PROGRESS NOTE Impression: Reassuring Heart Rate Procedures: Sterile Vag Exam Plan: Induction Informed Consent Obtained: Vaginal Delivery; Risks, Benefits and Alternatives Discussed Vital Signs : Reviewed; Within Normal Limits Comment: BP improved w/ IV Hydralazine 10 mg. Pt doing well, no complaints. VE FT/50/ -2, vtx very posterior and soft. Will use Cervidil for cervical ripening. PLan to start PCN prophylaxis once pt is in active labor. Will continue to monitor BP status and blood sugars during this IOL process. Attending MD is Dr Lopez and she agrees w/ plan of care VAGINAL EXAM Dilatation: ft Contractions: irregular LAST VAGINAL EXAM-NURSING Nursing Exam Dilitation: 0.5 Nursing Exam Effacement: 50 Nursing Exam Station: -2 MEMBRANES Membranes: Intact FETUS A FHR - Baseline: 145 Monitoring: External US Variability: Moderate 6-25bpm Accelerations: 15X15 Decelerations: None FHR Category: Category I Presentation: Vertex SIGNATURE SIGNATURE: [id number];[id number];[id number] Assignment: Amrita Lopez MD Signature: with User ID: [email or web address] : with User ID: [email or web address]
[2020-09-02] MEDS ORDERED: OXYTOCIN/0.9 % SODIUM CHLORIDE 30 UNIT/500 ML RTUINJ IV PRN ×2 (13:43→20:52)
--- NOTE | 2020-09-02 13:46 | L&D Progress Notes ---
PROGRESS NOTES Datetime Report Generated by CPN: 09/02/2020 13:46 PROGRESS NOTE Impression: Reassuring Heart Rate Procedures: Sterile Vag Exam Plan: Induction Informed Consent Obtained: Vaginal Delivery; Risks, Benefits and Alternatives Discussed Vital Signs : Reviewed; Within Normal Limits Comment: RN was able to get better VE, pt is actually 3-4 cm. Will cancel the cervidil for IOL and start Pitocin after pt has lunch. Will Start PCN prophylaxis also. VAGINAL EXAM Dilatation: ft Contractions: irregular LAST VAGINAL EXAM-NURSING Nursing Exam Dilitation: 3.0 Nursing Exam Effacement: 60 Nursing Exam Station: -3 MEMBRANES Membranes: Intact FETUS A FHR - Baseline: 145 Monitoring: External US Variability: Moderate 6-25bpm Accelerations: 15X15 Decelerations: None FHR Category: Category I Presentation: Vertex SIGNATURE SIGNATURE: [id number];[id number];[id number] Assignment: Amrita Lopez MD Signature: with User ID: [email or web address] : with User ID: [email or web address]
[2020-09-02] MEDS ORDERED: MISOPROSTOL 0.2 MG TABLET ONE (14:26)
[2020-09-02] MEDS ORDERED: OXYTOCIN 10 UNIT/ML VIAL ONE (14:26)
[2020-09-02] MEDS ORDERED: LIDOCAINE 1% INJ-PF (10 MG/ML) 30 ML SDV ONE (14:27)
[2020-09-02] MEDS ORDERED: OXYTOCIN/0.9 % SODIUM CHLORIDE 30 UNIT/500 ML RTUINJ ONE (14:27)
[2020-09-02 15:14] LABS: APPEARANCE,URINE SLIGHTLY-CLOUDY; BILIRUBIN,URINE NEGATIVE (NEGATIVE); COLOR,URINE YELLOW; GLUCOSE, URINE NEGATIVE (NEGATIVE); KETONES,URINE NEGATIVE (NEGATIVE); LEUKOCYTE ESTERASE,URINE SMALL (NEGATIVE); NITRITE,URINE NEGATIVE (NEGATIVE); PROTEIN,URINE NEGATIVE (NEGATIVE); UROBILINOGEN,URINE NEGATIVE mg/dL (<2.0)
[2020-09-02] MEDS ORDERED: NORMAL SALINE IV ONE (15:30)
[2020-09-02] MEDS ORDERED: PENICILLIN POTASSIUM IV ONE (15:30)
[2020-09-02 15:32] LABS: URINE AMPHETAMINES SCREEN NEGATIVE; URINE BENZODIAZEPINES SCREEN NEGATIVE; URINE COCAINE SCREEN NEGATIVE; URINE MARIJUANA (THC) SCREEN NEGATIVE; URINE METHADONE SCREEN NEGATIVE; URINE PHENCYCLIDINE SCREEN NEGATIVE
[2020-09-02 15:37] LABS: UR PRO/CREAT RATIO RESULT 0.4 mg/mg (0.0-0.2); URINE BARBITURATES SCREEN UNCONFIRMED POSITIVE; URINE PROTEIN 17.2 mg/dL (<12)
[2020-09-02] MEDS ORDERED: MAG HYDROX/AL HYDROX/SIMETH SUSP 30 ML UDCUP ONE (16:08)
[2020-09-02] MEDS ORDERED: MAG HYDROX/AL HYDROX/SIMETH SUSP 30 ML UDCUP PO ONE (16:46)
--- NOTE | 2020-09-02 16:46 | L&D Progress Notes ---
PROGRESS NOTES Datetime Report Generated by CPN: 09/02/2020 16:46 PROGRESS NOTE Impression: Reassuring Heart Rate Procedures: Sterile Vag Exam Plan: Induction Informed Consent Obtained: Vaginal Delivery; Risks, Benefits and Alternatives Discussed Vital Signs : Reviewed; Within Normal Limits Comment: Pitocin infusing, pt doing well. PCN q 4 hours for GBS + status. Ve 4/80/-3, Unable to SROM since cervix remains posterior. Will let patient get an epidural then attempt to AROM once she is comfortable. Dr Lopez updated. BP's remain stable. Pt given Mayloxx for GERD. VAGINAL EXAM Dilatation: ft Contractions: irregular LAST VAGINAL EXAM-NURSING Nursing Exam Dilitation: 4.0 Nursing Exam Effacement: 70 Nursing Exam Station: -3 MEMBRANES Membranes: Intact FETUS A FHR - Baseline: 145 Monitoring: External US Variability: Moderate 6-25bpm Accelerations: 15X15 Decelerations: None FHR Category: Category I Presentation: Vertex SIGNATURE SIGNATURE: [id number];[id number];[id number] Assignment: Amrita Lopez MD Signature: with User ID: [email or web address] : with User ID: [email or web address]
[2020-09-02] MEDS ORDERED: FENTANYL/BUPIVACAINE/NS/PF 300 MCG/150 ML RTUINJ EPI ONE (16:56)
[2020-09-02] MEDS ORDERED: ROPIVACAINE HCL 0.2% INJ/PF (2 MG/ML) 20 ML SDV ONE (16:56)
[2020-09-02] MEDS ORDERED: EPHEDRINE SULFATE INJ 50 MG/1 ML AMPULE ONE (16:56)
[2020-09-02] MEDS ORDERED: PENICILLIN G-K 5 MILLION UNIT VIAL ONE (19:28)
[2020-09-02] MEDS ORDERED: PENICILLIN POTASSIUM IV SCH (19:30)
[2020-09-02] MEDS ORDERED: NORMAL SALINE IV SCH (19:30)
[2020-09-02] MEDS ORDERED: ACETAMINOPHEN 650 MG SUPP.RECT PR PRN (20:52)
[2020-09-02] MEDS ORDERED: DIPHENHYDRAMINE HCL 25 MG CAPSULE PO PRN (20:52)
[2020-09-02] MEDS ORDERED: PSEUDOEPHEDRINE HCL 30 MG TABLET PO PRN (20:52)
[2020-09-02] MEDS ORDERED: MAGNESIUM HYDROXIDE SUSP 30 ML UDCUP PO PRN (20:52)
[2020-09-02] MEDS ORDERED: PROMETHAZINE HCL INJ 25 MG/1 ML VIAL IV PRN (20:52)
[2020-09-02] MEDS ORDERED: ACETAMINOPHEN WITH CODEINE #3 TABLET PO PRN ×2 (20:52)
[2020-09-02] MEDS ORDERED: DIBUCAINE 1% OINTMENT 28 GM TP PRN (20:52)
[2020-09-02] MEDS ORDERED: GLYCERIN/WITCH HAZEL LEAF 1 EACH MED..WIPE TP PRN (20:52)
[2020-09-02] MEDS ORDERED: MEASLES,MUMPS&RUBELLA VACC/PF 0.5 ML VIAL SUBCUT PRN (20:52)
[2020-09-02] MEDS ORDERED: NA PHOS,M-B/NA PHOS,DI-BA (ADULT) 133 ML ENEMA PR PRN (20:52)
[2020-09-02] MEDS ORDERED: DIPH/PERTUSS(ACELL)/TETANUS VAC/PF 0.5 ML SYR (>=10YO) IM PRN (20:52)
[2020-09-02] MEDS ORDERED: BENZOCAINE/MENTHOL AEROSOL SPRAY 56 ML TOP PRN (20:52)
[2020-09-02] MEDS ORDERED: ZOLPIDEM TARTRATE 5 MG TABLET PO PRN (20:52)
[2020-09-02] MEDS ORDERED: PROMETHAZINE HCL 25 MG SUPP.RECT PR PRN (20:52)
[2020-09-02] MEDS ORDERED: PROMETHAZINE HCL 25 MG TABLET PO PRN (20:52)
[2020-09-02] MEDS: IBUPROFEN 800 MG TABLET PO SCH (22:55)
[2020-09-02] MEDS: FAMOTIDINE 20 MG TABLET PO SCH (22:55)
--- NOTE | 2020-09-02 23:00 | Birth Certificate Data ---
Cert Data Datetime Report Generated by Yeison: 09/02/2020 22:59 CERTIFICATE DATA Delivery Provider: Amrita Lopez MD (07/01/2020 17:13:Kaylie Baum RNC) 47a. Care: Yes (07/01/2020 17:13:Tika Wadsworth RN) 47b. Date of First Visit: 01/23/2020 00:00 (07/01/2020 17:13:Katia Menon RN) 47c. Date of Last Visit: 08/30/2020 00:00 (07/01/2020 17:13:Katia Menon RN) 47d. Number of Visits: 12 (07/01/2020 17:13:Katia Menon RN) 48a. Number of Prev Live Births: 1 (07/01/2020 17:13:Ruba Carlisle RN) 48b. Now Livin (Annotations: Data stored by [facility] on behalf of user) (07/01/2020 17:13:Ruba Carlisle RN) 48c. Live Births Now : 0 (07/01/2020 17:13:QS system process) 48d. Date of Last Live : 11/10/2012 00:00 (07/01/2020 17:13:Stefania Diaz RN) 48e. Losses: 2 (07/01/2020 17:13:Ruba Carlisle RN) 48f. Date of Last Preg Loss: 11/01/2015 00:00 (07/01/2020 17:13:Stefania Diaz RN) RISK FACTORS IN THIS 49a. Diabetes: Yes (07/01/2020 17:13:Tika Wadsworth RN) Type of Diabetes: Gestational Diabetes (07/01/2020 17:13:Tika Wadsworth RN) 49b. Hypertension: Yes (07/01/2020 17:13:Tika Wadsworth RN) Type of Hypertension: Chronic (07/01/2020 17:13:Tika Wadsworth RN) 49c. Previous Births: 0 (07/01/2020 17::Ruba Carlisle RN) 49d. Stillborns: No (07/01/2020 17:13:Tika Wadsworth RN) 49d. IUGR: No (07/01/2020 17:13:Tika Wadsworth RN) 49e. Infertility Treatment: No (07/01/2020 17:13:Tika Wadsworth RN) 49f. Previous Cesareans: 0 (07/01/2020 17:13:Ruba Carlisle RN) Mother's Height 50b. Height Inches: 59 (09/02/2020 22:49:QS system process) Mother's Weight 51a. Pre- Weight (lbs): 180 (07/01/2020 17:13:Tika Wadsworth RN) 51b. Weight at Delivery (lbs): 209 (09/02/2020 22:49:QS system process) 52. Dt Last Normal Menses Began: 12/04/2019 00:00 (07/01/2020 17:13:Katia Menon RN) Infections Present/Treated 53a. Gonorrhea: No (07/01/2020 17:13:Tika Wadsworth RN) Results this Hospital Visit : Negative (07/01/2020 17:13:Katia Menon RN) 53b. Syphilis: No (07/01/2020 17:13:Tika Wadsworth RN) Results this Hospital Visit: NONREACTIVE (08/31/2020 05:07:QS system process) 53c. Chlamydia: Yes (07/01/2020 17:13:Tika Wadsworth RN) Results this Hospital Visit: Negative (07/01/2020 17:13:Katia Menon RN) 53d. Hepatitis B: No (07/01/2020 17:13:Tika Wadsworth RN) Results this Hospital Visit: Negative (07/01/2020 17:13:Ruba Carlisle RN) 53e. Hepatitis C: Negative (07/01/2020 17:13:Ruba Carlisle RN) 53h. Mother Tested for HBsAG: Yes (07/01/2020 17:13:Ruba Carlisle RN) 53i. Date Tested: 01/23/2020 00:00 (07/01/2020 17:13:Ruba Carlisle RN) 53j. Test Result: Negative (07/01/2020 17:13:Ruba Carlisle RN) Obstetric Procedures 54a, b, c. Obstetric Procedures: Ultrasound; NST (07/01/2020 17:13:Tika Wadsworth RN) Cigarette Smoking Cigarette Smoking: Never Smoker. [id number] (07/01/2020 17:13:Tika Wadsworth RN) 55a. 3 Months Before Preg - Ci (07/01/2020 17:13:Katia Menon RN) 55a. Packs: 0 (07/01/2020 17:13:Katia Menon RN) 55b. 1st Trimester of Preg- Ci (07/01/2020 17:13:Katia Menon RN) 55b. Packs: 0 (07/01/2020 17:13:Katia Menon RN) 55c. 2nd Trimester of Preg- Ci (07/01/2020 17:13:Katia Menon RN) 55c. Packs: 0 (07/01/2020 17:13:Katia Menon RN) 55d. 3rd Trimester of Preg- Ci (07/01/2020 17:13:Katia Menon RN) 55d. Packs: 0 (07/01/2020 17:13:Katia Menon RN) Onset of Labor 56a. PROM >12 Hrs: 1.35 (07/01/2020 17:13:QS system process) 56b. Precipitous Labor <3 Hrs: 4 (07/01/2020 17:13:QS system process) 56c. Prolonged Labor > 20 Hrs: 4 (07/01/2020 17:13:QS system process) 57a. Induction of Labor: Induction (07/01/2020 17:13:MEG Sheldon) 57c. Non-Vertex Presentation A: Vertex (07/01/2020 17:13:MEG Sheldon) 57d. Steroids - Lung Mat: Full Course (07/01/2020 17:13:MEG Sheldon) 57d. Steroids - Lung Mat: Celestone 12mg IM - Dose 2 (Annotations: L gluteus ) (08/31/2020 17:57:Barbara Munoz RN) 57d. Steroids - Lung Mat: Not Applicable (07/01/2020 17:13:MEG Sheldon) 57e. Antibiotics During Labor: 09/02/2020 19:40 (07/01/2020 17:13:Nicole Cervantes RN) 57f. Mat Ch[place] or Temp >100.4: 98.4 (07/01/2020 17:13:MEG Sheldon) 57g. Moderate/Heavy Meconium: Light Meconium (09/02/2020 19:24:Nicole Cervantes RN) 57h. Intolerance of Labor: N/A (07/01/2020 17:13:Nicole Cervantes RN) : N/A (07/01/2020 17:13:Nicole Cervantes RN) 57i. Epidural/Spinal Anesthesia: Epidural (07/01/2020 17:13:Kaylie Bellavance, RNC) Method of Delivery 58a. Forceps - Unsuccessful A: N/A (07/01/2020 17:13:Kaylie Bellavance, RNC) 58b. Vacuum - Unsuccessful A: N/A (07/01/2020 17:13:Kaylie Bellavance, RNC) 58c. Presentation at 58c. Presentation at - A : Vertex (07/01/2020 17:13:Kaylie Bellavance, RNC) 58c. Presentation at - A : N/A (07/01/2020 17:13:Kaylie Bellavance, RNC) 58c. Presentation at - A : Cephalic (07/01/2020 17:13:Kaylie Bellavance, RNC) Final Route and Method of Del 58d. Baby A Route/Delivery: Vaginal (09/02/2020 20:45:Kaylie Bellavance, RNC) 58e. Trial of Labor Attempted: No (07/01/2020 17:13:Kaylie Bellavance, RNC) 58e. Trial of Labor Attempted A: N/A (07/01/2020 17:13:Kaylie Bellavance, RNC) 58e. Trial of Labor Attempted B: N/A (07/01/2020 17:13:Kaylie Bellavance, RNC) Maternal Morbidity 59b. 3rd or 4th Degree Lacs: None (07/01/2020 17:13:Amrita Lopez MD ([facility])) Birthweight Baby A: 3130 (07/01/2020 17:13:Nicole Cervantes RN) 60a. Pounds : 6 (07/01/2020 17:13:QS system process) 60b. Ounces: 14 (07/01/2020 17:13:QS system process) 61. GA at Delivery Baby A: 37.0 (07/01/2020 17:13:Kayliedonte Baum, [facility]) : Early Term- 37- 38.6 Weeks (07/01/2020 17:13:QS system process) 62a. 5 Minute Baby A: 7 (07/01/2020 17:13:QS system process)
--- NOTE | 2020-09-02 23:01 | Delivery Summary ---
Del Sum A-C Datetime Report Generated by CPN: 09/02/2020 23:00 DELIVERY PERSONNEL DELIVERY PERSONNEL: [id number] Delivery Doctor:: Amrita Lopez MD Labor and Delivery Nurse:: Nicole Cervantes RN Nursery Nurse:: Salud Harkins RN Pole Framer/HAND [employer] FOOD MAKER: Doreen León, LAMINATING MACHINE OPERATOR HELPER MATERNAL INFORMATION Delivery Anesthesia: Epidural Medications After Delivery: Pitocin 30 Units in 500ml NS/D5W Estimated Blood Loss (ml): 100 Delivery QBL: 100 Maternal Complications: None LABOR SUMMARY EDC: 09/23/2020 00:00 No. Babies in Womb: 1 Attempted: No Labor Anesthesia: Epidural LABOR INFORMATION Reason for Induction: Pre-Eclampsia Onset of Labor: 09/02/2020 16:31 Complete Dilatation: 09/02/2020 20:40 Oxytocin: Induction Group B Beta Strep: Positive Antibiotics # of Doses: 2 Antibiotics Time of Last Dose: 09/02/2020 19:40 Name of Antibiotic Given: penicillin Steroids Given: Full Course Reason Steroids Not Administered: Not Applicable MEMBRANES Membranes Rupture Method: Artificial Rupture of Membranes: 09/02/2020 19:24 Length of Rupture (hr): 1.35 Amniotic Fluid Color: Light Meconium Amniotic Fluid Amount: Large Amniotic Fluid Odor: None STAGES OF LABOR Stage 1 hr: 4 Stage 1 min: 9 Stage 2 hr: 0 Stage 2 min: 5 Stage 3 hr: 0 Stage 3 min: 3 Total Time in Labor hr: 4 Total Time in Labor min: 17 VAGINAL DELIVERY Episiotomy: None Laceration #1: None Laceration Extension #1: N/A Laceration Repair: Not Applicable Sponge Count Correct: Yes; Vaginal Sweep Performed Sharps Count Correct: Yes CSECTION DELIVERY Primary Indication: N/A Secondary Indication: N/A CSection Incidence: N/A Labor: N/A Elective: N/A BABY A INFORMATION Infant Delivery Date/Time: 09/02/2020 20:45 Method of Delivery: Vaginal Nurse Controlled Delivery: No Born in Route : No : N/A Forceps: N/A Vacuum Extraction: N/A Shoulder Dystocia : No PRESENTATION/POSITION BABY A Presentation: Cephalic Cephalic Presentation: Vertex Vertex Position: Left Occipital Anterior Breech Presentation: N/A PLACENTA INFORMATION BABY A Placenta Delivery Time : 09/02/2020 20:48 Placenta Method of Delivery: Spontaneous Placenta Status: Delivered SCORES BABY A Heart Rate 1 min: >100 bpm Resp Effort 1 min: Slow, Irregular Reflex Irritability 1 min: Grimace Muscle Tone 1 min: Some Flexion of Extremities Color 1 min: Blue/Pale Resuscitation Effort 1 min: Tactile Stimulation SCORE 1 MIN: 5 Heart Rate 5 min: >100 bpm Resp Effort 5 min: Slow, Irregular Reflex Irritability 5 min: Cough or Sneeze or Pulls Away Muscle Tone 5 min: Some Flexion of Extremities Color 5 min: Body [place], Extremities Blue SCORE 5 MIN: 7 INFANT INFORMATION BABY A Gestational Age at Delivery: 37.0 Gestational Status: Early Term- 37- 38.6 Weeks Outcome : Liveborn Infant Condition : Stable Sex: Female IDENTIFICATION BABY A Verification Date/Time: 09/02/2020 21:12 ID Band Number: [id number] Mother's Name Verified: Yes RN Verifying : Vin Cervantes RN/ DGilda Baum RN WEIGHT/LENGTH BABY A Infant Birthweight (gm): 3130 Weight (lb): 6 Weight (oz): 14 Length (in): 19.25 Infant Length (cm): 48.90 CORD INFORMATION BABY A No. Cord Vessels: 3 Nuchal Cord : N/A Cord Blood Taken: Yes-For Eval (Mom's Blood Type - or O+) Infant Suction: Mouth; Nose ASSESSMENT BABY A Skin to Skin: Yes BABY B INFORMATION : N/A SIGNATURES Signature: with User ID: [email or web address]
[2020-09-02] MEDS ORDERED: AMLODIPINE BESYLATE 2.5 MG TABLET PO ONE (23:59)
[2020-09-03] MEDS: ACETAMINOPHEN 325 MG TABLET PO PRN (02:44)
[2020-09-03] MEDS: IBUPROFEN 800 MG TABLET PO SCH ×3 (05:33→21:23)
[2020-09-03 08:39] LABS: HEMATOCRIT 29.9 % (36.0-47.0); HEMOGLOBIN 10.3 g/dL (12.0-15.5); MEAN CORPUSCULAR HEMOGLOBIN 28.8 pg (27.0-33.4); MEAN CORPUSCULAR HGB CONC 34.6 g/dL (32.0-36.0); MEAN CORPUSCULAR VOLUME 83 fl (80-97); PLATELET COUNT 214 10^3/uL (150-450); RED BLOOD COUNT 3.58 10^6/uL (3.72-5.28); RED CELL DISTRIBUTION WIDTH 13.3 % (11.5-14.0); WHITE BLOOD COUNT 11.6 10^3/uL (4.0-10.5)
[2020-09-03] MEDS: PRENATAL VITAMIN W DHA CAPSULE PO SCH (09:32)
[2020-09-03] MEDS: FAMOTIDINE 20 MG TABLET PO SCH ×2 (09:33→21:23)
[2020-09-03] MEDS: DOCUSATE SODIUM 100 MG CAPSULE PO SCH ×2 (09:33→17:13)
[2020-09-03] MEDS: FERROUS SULFATE 325 MG TABLET PO SCH ×2 (09:33→17:13)
[2020-09-03] MEDS: SENNOSIDES/DOCUSATE 8.6-50 MG 1 EACH TABLET PO SCH (09:33)
--- NOTE | 2020-09-03 10:55 | PDOC PROGRESS REPORT ---
Subjective-OB Progress Note for:: 09/03/20 Subjective: reports bleeding slowing, pain controlled with current meds. denies needs Physical Exam (OB) Vital Signs: Temp Pulse Resp BP Pulse Ox 97.7 F 77 17 127/86 H 97 09/03/20 07:48 09/03/20 07:48 09/03/20 07:48 09/03/20 07:48 09/03/20 07:48 Intake & Output 09/02/20 09/03/20 09/04/20 06:59 06:59 06:59 Intake Total 1400 1050 Balance 1400 1050 Weight 95.4 kg - Maternal Morbidity 59. Maternal Morbidity (serious complications experinced by the mother associated with labor and delivery: None of the above - Abdomen Description: Soft Hernia Present: No Fundal Description: Firm, Midline Fundal Height: u/u - u/2 - Abdominal Distension: No distension Tenderness: Nontender - Extremities Lower extremities: Fidel's sign - neg Calf: Normal, Nontender Objective-Diagnostic Laboratory: 09/03/20 08:22 09/02/20 12:15 09/02/20 09/02/20 09/02/20 11:55 12:15 12:15 WBC 10.9 H RBC 3.87 Hgb 11.4 L Hct 32.2 L MCV 83 MCH 29.4 MCHC 35.3 RDW 13.6 Plt Count 269 Seg Neutrophils % 64.5 Sodium 135.3 L Potassium 4.0 Chloride 107 Carbon Dioxide 20 L Anion Gap 8 BUN 14 Creatinine 0.65 Est GFR ( Amer) > 60 Glucose 89 Uric Acid 5.6 Calcium 9.9 Total Bilirubin 0.5 AST 18 Alkaline Phosphatase 170 H Total Protein 6.6 Albumin 3.6 Urine Color YELLOW Urine Appearance SLIGHTLY-CLOUDY Urine pH 6.0 Ur Specific [place] 1.010 Urine Protein NEGATIVE Urine Glucose (UA) NEGATIVE Urine Ketones NEGATIVE Urine Blood NEGATIVE Urine Nitrite NEGATIVE Ur Leukocyte Esterase SMALL H Blood Type Antibody Screen 09/02/20 09/03/20 12:15 08:22 WBC 11.6 H RBC 3.58 L Hgb 10.3 L Hct 29.9 L MCV 83 MCH 28.8 MCHC 34.6 RDW 13.3 Plt Count 214 Seg Neutrophils % Sodium Potassium Chloride Carbon Dioxide Anion Gap BUN Creatinine Est GFR ( Amer) Glucose Uric Acid Calcium Total Bilirubin AST Alkaline Phosphatase Total Protein Albumin Urine Color Urine Appearance Urine pH Ur Specific [place] Urine Protein Urine Glucose (UA) Urine Ketones Urine Blood Urine Nitrite Ur Leukocyte Esterase Blood Type O POSITIVE Antibody Screen NEGATIVE Assessment and Plan(PN) - Time Spent with Patient Time with patient: Less than 15 minutes Medications reviewed and adjusted accordingly: Yes - Disposition Anticipated Discharge Disposition: Home, Self Care Anticipated Discharge Timeframe: within 24 hours
[2020-09-03] MEDS ORDERED: AMLODIPINE BESYLATE 2.5 MG TABLET PO SCH (22:00)
[2020-09-04] MEDS: IBUPROFEN 800 MG TABLET PO SCH (05:11)
[2020-09-04] MEDS: PRENATAL VITAMIN W DHA CAPSULE PO SCH (10:12)
[2020-09-04] MEDS: SENNOSIDES/DOCUSATE 8.6-50 MG 1 EACH TABLET PO SCH (10:12)
[2020-09-04] MEDS: FERROUS SULFATE 325 MG TABLET PO SCH (10:12)
[2020-09-04] MEDS: DOCUSATE SODIUM 100 MG CAPSULE PO SCH (10:12)
[2020-09-04] MEDS: FAMOTIDINE 20 MG TABLET PO SCH (10:12)
--- NOTE | 2020-09-04 10:21 | PDOC DISCHARGE SUMMARY ---
Impression - Admit/DC Date/PCP Admission Date/Primary Care Provider: 09/02/20 11:45 JUAN DIEGO MERCADO MD Discharge Date: 09/04/20 - Discharge Diagnosis (1) Gestational diabetes mellitus treated with oral hypoglycemic therapy Is this a current diagnosis for this admission?: Yes (2) 37 weeks gestation of Is this a current diagnosis for this admission?: Yes (3) GBS (group B Streptococcus carrier), +RV culture, currently Is this a current diagnosis for this admission?: Yes (4) Pre-eclampsia superimposed on chronic hypertension Is this a current diagnosis for this admission?: Yes (5) Chronic hypertension affecting Is this a current diagnosis for this admission?: Yes - Assessment Summary: 25yo G4 now P2 s/p ppd 2. Pt stable and ready for discharge, understands wa rning s/s and when to rtc/[facility]. Has scheduled appt for bp check on Wednesday. - Additional Information Resuscitation Status: Full Code Discharge Diet: As Tolerated, Regular Discharge Activity: Activity As Tolerated, Balance Activity w/Rest, No Lifting Over 10 Pounds, Pelvic Rest, No tub bath, Walk Frequently Referrals: JUAN DIEGO MERCADO MD [Primary Care Provider] - Prescriptions: Ibuprofen [Motrin 800 mg Tablet] 800 mg PO Q8HP PRN #20 tablet PRN Reason: For Pain Scale 1-3 Docusate Sodium [Colace 100 mg Capsule] 100 mg PO BID #60 capsule Ferrous Sulfate [Feosol 325 mg Tablet] 325 mg PO BID #60 tablet Home Medications: Amlodipine Besylate [Norvasc 5 mg Tablet] 2.5 mg PO QHS 01/09/20 Pnv 102/Iron/Folate 1/Dss/Dha [Vitafol Fe+ Docusate Combo Pck] 1 each PO DAILY 07/01/20 Docusate Sodium [Colace 100 mg Capsule] 100 mg PO BID #60 capsule 09/04/20 Ferrous Sulfate [Feosol 325 mg Tablet] 325 mg PO BID #60 tablet 09/04/20 Ibuprofen [Motrin 800 mg Tablet] 800 mg PO Q8HP PRN #20 tablet 09/04/20 Hospital Course 59. Maternal Morbidity (serious complications experinced by the mother associated with labor and delivery: None of the above Results Laboratory Results: WBC 11.6 10^3/uL (4.0-10.5) H 09/03/20 08:22 RBC 3.58 10^6/uL (3.72-5.28) L 09/03/20 08:22 Hgb 10.3 g/dL (12.0-15.5) L 09/03/20 08:22 Hct 29.9 % (36.0-47.0) L 09/03/20 08:22 MCV 83 fl (80-97) 09/03/20 08:22 MCH 28.8 pg (27.0-33.4) 09/03/20 08:22 MCHC 34.6 g/dL (32.0-36.0) 09/03/20 08:22 RDW 13.3 % (11.5-14.0) 09/03/20 08:22 Plt Count 214 10^3/uL (150-450) 09/03/20 08:22 Lymph % (Auto) 18.7 % (13-45) 09/02/20 12:15 [place] % (Auto) 15.4 % (3-13) H 09/02/20 12:15 Eos % (Auto) 1.0 % (0-6) 09/02/20 12:15 Baso % (Auto) 0.4 % (0-2) 09/02/20 12:15 Absolute Neuts (auto) 7.1 10^3/uL (1.7-8.2) 09/02/20 12:15 Absolute Lymphs (auto) 2.0 10^3/uL (0.5-4.7) 09/02/20 12:15 Absolute Monos (auto) 1.7 10^3/uL (0.1-1.4) H 09/02/20 12:15 Absolute Eos (auto) 0.1 10^3/uL (0.0-0.6) 09/02/20 12:15 Absolute Basos (auto) 0.0 10^3/uL (0.0-0.2) 09/02/20 12:15 Seg Neutrophils % 64.5 % (42-78) 09/02/20 12:15 Sodium 135.3 mmol/L (137-145) L 09/02/20 12:15 Potassium 4.0 mmol/L (3.6-5.0) 09/02/20 12:15 Chloride 107 mmol/L (98-107) 09/02/20 12:15 Carbon Dioxide 20 mmol/L (22-30) L 09/02/20 12:15 Anion Gap 8 (5-19) 09/02/20 12:15 BUN 14 mg/dL (7-20) 09/02/20 12:15 Creatinine 0.65 mg/dL (0.52-1.25) 09/02/20 12:15 Est GFR ( Amer) > 60 (>60) 09/02/20 12:15 Est GFR (MDRD) Non-Af > 60 (>60) 09/02/20 12:15 Glucose 89 mg/dL (75-110) 09/02/20 12:15 POC Glucose 91 mg/dL (70-110) 09/02/20 20:57 Uric Acid 5.6 mg/dL (2.5-6.2) 09/02/20 12:15 Calcium 9.9 mg/dL (8.4-10.2) 09/02/20 12:15 Total Bilirubin 0.5 mg/dL (0.2-1.3) 09/02/20 12:15 Direct Bilirubin 0.0 mg/dL (0.0-0.4) 09/02/20 12:15 Neonat Total Bilirubin Not Reportable 09/02/20 12:15 Neonat Direct Bilirubin Not Reportable 09/02/20 12:15 Neonat Indirect Bili Not Reportable 09/02/20 12:15 AST 18 U/L (14-36) 09/02/20 12:15 ALT 12 U/L (<35) 09/02/20 12:15 Alkaline Phosphatase 170 U/L (38-126) H 09/02/20 12:15 Total Protein 6.6 g/dL (6.3-8.2) 09/02/20 12:15 Albumin 3.6 g/dL (3.5-5.0) 09/02/20 12:15 Urine Color YELLOW 09/02/20 11:55 Urine Appearance SLIGHTLY-CLOUDY 09/02/20 11:55 Urine pH 6.0 (5.0-9.0) 09/02/20 11:55 Ur Specific [place] 1.010 09/02/20 11:55 Urine Protein NEGATIVE mg/dL (NEGATIVE) 09/02/20 11:55 Urine Glucose (UA) NEGATIVE mg/dL (NEGATIVE) 09/02/20 11:55 Urine Ketones NEGATIVE mg/dL (NEGATIVE) 09/02/20 11:55 Urine Blood NEGATIVE (NEGATIVE) 09/02/20 11:55 Urine Nitrite NEGATIVE (NEGATIVE) 09/02/20 11:55 Urine Bilirubin NEGATIVE (NEGATIVE) 09/02/20 11:55 Urine Urobilinogen NEGATIVE mg/dL (<2.0) 09/02/20 11:55 Ur Leukocyte Esterase SMALL (NEGATIVE) H 09/02/20 11:55 Urine Creatinine 46.0 mg/dL (16-327) 09/02/20 11:55 Protein/Creatinin Ratio 0.4 mg/mg (0.0-0.2) H 09/02/20 11:55 Urine Total Protein 17.2 mg/dL (<12) H 09/02/20 11:55 Urine Ascorbic Acid NEGATIVE (NEGATIVE) 09/02/20 11:55 Urine Opiates Screen NEGATIVE 09/02/20 11:55 Urine Methadone Screen NEGATIVE 09/02/20 11:55 Ur Barbiturates Screen UNCONFIRMED POSITIVE 09/02/20 11:55 Ur Phencyclidine Scrn NEGATIVE 09/02/20 11:55 Ur Amphetamines Screen NEGATIVE 09/02/20 11:55 U Benzodiazepines Scrn NEGATIVE 09/02/20 11:55 Urine Cocaine Screen NEGATIVE 09/02/20 11:55 U Marijuana (THC) Screen NEGATIVE 09/02/20 11:55 RPR NONREACTIVE (NONREACTIVE) 09/02/20 12:15 Blood Type O POSITIVE 09/02/20 12:15 Antibody Screen NEGATIVE 09/02/20 12:15
[2020-09-04 11:26] VITALS: BP 139/87
[2020-09-04] MEDS: ACETAMINOPHEN 325 MG TABLET PO PRN (11:42)
== END 2020-09-04 13:30 | disposition home or self-care (01) | DRG 807 ==
LOC: LR 11:45 → 2S 22:49
PROVIDERS: ADMIT Obstetrics & Gynecology; ATTEND Obstetrics & Gynecology
PROC: 10E0XZZ Delivery of Products of Conception, External Approach (ICD-10-PCS; principal; 2020-09-02)
DX: O11.4 Pre-existing hypertension with pre-eclampsia, complicating childbirth (principal); Z37.0 Single live birth; O24.425 Gestational diabetes mellitus in childbirth, controlled by oral hypoglycemic drugs; O99.62 Diseases of the digestive system complicating childbirth; O99.824 Streptococcus B carrier state complicating childbirth; O77.0 Labor and delivery complicated by meconium in amniotic fluid; K21.9 Gastro-esophageal reflux disease without esophagitis; Z3A.37 37 weeks gestation of pregnancy
CPT/HCPCS: 1967; 36415; 59025; 80053; 80307; 80345; 81005; 82570; 82962; 84156; 84550; 85025; 85027; 86592; 86850; 86900; 86901; 94760; 96372; G0480; J0360; J2540; J2590; J2795; J3010; J3490; J7050

== ENCOUNTER 2020-09-06 17:41 | Emergency (ER) | payer BC, MEDICAID ==
[2020-09-06 18:19] VITALS: BP 163/104
--- NOTE | 2020-09-06 18:41 | ER Document Report ---
ED Medical Screen (RME) - General Stated Complaint: HEADACHE, WEAKNESS Time Seen by Provider: 09/06/20 18:35 Primary Care Provider: JUAN DIEGO MERCADO MD [Primary Care Provider] - Follow up as needed Notes: Patient is a 25-year-old female presents emergency department with a headache. Patient is 4 days . States that she had preeclampsia and had her baby at 37 weeks. TRAVEL OUTSIDE OF THE [place] IN LAST 30 DAYS: No - Related Data Allergies/Adverse Reactions: No Known Allergies Allergy (Verified 09/02/20 11:59) Past Medical History - Past Medical History Cardiac Medical History: Reports: Hx Hypercholesterolemia, Hx Hypertension Pulmonary Medical History: Reports: Hx Asthma Endocrine Medical History: Renal/ Medical History: Reports: Hx Ovarian Cysts. Denies: Hx Peritoneal Dialysis Psychiatric Medical History: Reports: Hx Anxiety Past Surgical History: Reports: Hx Genitourinary Surgery - D&C, Other - D&C - Immunizations Immunizations up to date: Yes Hx Diphtheria, Pertussis, Tetanus Vaccination: Yes Physical Exam - Vital signs Vitals: Temp Pulse Resp BP Pulse Ox 98.0 F 97 16 163/104 H 100 09/06/20 18:19 09/06/20 18:19 09/06/20 18:19 09/06/20 18:19 09/06/20 18:19 Course - Vital Signs Vital signs: Temp Pulse Resp BP Pulse Ox 98.0 F 97 16 163/104 H 100 09/06/20 18:19 09/06/20 18:19 09/06/20 18:19 09/06/20 18:19 09/06/20 18:19 Doctor's Discharge - Discharge Referrals: JUAN DIEGO MERCADO MD [Primary Care Provider] - Follow up as needed
--- NOTE | 2020-09-06 18:48 | ER Document Report ---
HPI - HPI Time Seen by Provider: 09/06/20 18:35 Context: Patient is a 25-year-old female who presents to the emergency department with a headache and high blood pressure. Patient is 4 days . She did not receive magnesium during delivery. Patient delivered at 37 weeks. - ROS Systems Reviewed and Negative: Yes All other systems reviewed and negative - NEURO Neurology: REPORTS: Headache - CARDIOVASCULAR Cardiovascular: DENIES: Chest pain - RESPIRATORY Respiratory: DENIES: Trouble Breathing, Coughing - GASTROINTESTINAL Gastrointestinal: DENIES: Abdominal Pain - REPRODUCTIVE Reproductive: DENIES: : - DERM Skin Color: Normal Skin Problems: None Past Medical History - General Information source: Patient - Social History Smoking Status: Never Smoker Family History: None - Past Medical History Cardiac Medical History: Reports: Hx Hypercholesterolemia, Hx Hypertension Pulmonary Medical History: Reports: Hx Asthma Endocrine Medical History: Renal/ Medical History: Reports: Hx Ovarian Cysts. Denies: Hx Peritoneal Dialysis Psychiatric Medical History: Reports: Hx Anxiety Past Surgical History: Reports: Hx Genitourinary Surgery - D&C, Other - D&C - Immunizations Immunizations up to date: Yes Hx Diphtheria, Pertussis, Tetanus Vaccination: Yes Vertical Provider Document - CONSTITUTIONAL Agree With Documented VS: Yes Exam Limitations: No Limitations General Appearance: No Apparent Distress - INFECTION CONTROL TRAVEL OUTSIDE OF THE [place] IN LAST 30 DAYS: No - HEENT HEENT: Atraumatic, Normocephalic, PERRLA - NECK Neck: Normal Inspection - RESPIRATORY Respiratory: No Respiratory Distress - CARDIOVASCULAR Cardiovascular: Regular Rate, Regular Rhythm Pulses: Normal: Radial - MUSCULOSKELETAL/EXTREMETIES Musculoskeletal/Extremeties: FROM - NEURO Level of Consciousness: Awake, Alert, Appropriate Motor/Sensory: No Motor Deficit, No Sensory Deficit - DERM Integumentary: Warm, Dry, No Rash Course - Re-evaluation Re-evalutation: 09/06/20 18:[address] Larios, who would like the patient to go upstairs to labor and delivery to have her work-up done there. Patient is in agreement with this plan. Follow-up precautions were given. Verbal discharge instructions were given to the patient. They verbalized understanding. They are stable for discharge. - Vital Signs Vital signs: Temp Pulse Resp BP Pulse Ox 98.0 F 97 16 163/104 H 100 09/06/20 18:19 09/06/20 18:19 09/06/20 18:19 09/06/20 18:19 09/06/20 18:19 Discharge - Discharge Clinical Impression: Eclampsia Condition: Stable Disposition: LABOR CHECK Additional Instructions: You were seen here in the emergency department for high blood pressure. Go directly to labor and delivery to be evaluated and treated upstairs. Referrals: JUAN DIEGO MERCADO MD [Primary Care Provider] - Follow up as needed
== END 2020-09-06 18:53 | disposition admitted as inpatient to this hospital (09) ==
LOC: ER 17:41
DX: O15.2 Eclampsia complicating the puerperium (principal); O90.9 Complication of the puerperium, unspecified; R51.9 Headache, unspecified
CPT/HCPCS: 99282

== ENCOUNTER 2020-09-06 18:57 | Inpatient (IN) | payer BC, MEDICAID ==
[2020-09-06] MEDS ORDERED: RINGERS SOLUTION,LACTATED 1,000 ML IV PRN (19:11)
[2020-09-06] MEDS ORDERED: RINGERS SOLUTION,LACTATED 1,000 ML IV ONE (19:11)
[2020-09-06] MEDS ORDERED: MAGNESIUM SULFATE 4 GM/100 ML RTUPB IV ONE ×2 (19:13→19:15)
[2020-09-06] MEDS ORDERED: MAGNESIUM SULFATE 20 GM/500 ML RTUINJ IV ONE (19:15)
--- NOTE | 2020-09-06 20:04 | Admission Physical ---
Datetime Report Generated by CPN: 09/06/2020 20:04 CURRENT ADMISSION Chief Complaint: Signs/Symptoms Gestational HTN Chief Complaint Other: elevated BP Indication for Induction: Not Applicable Indication for Induction- Other: CHTN w/ superimposed Pre-eclampsia at 37 wks. GBS+, Hx of GDM Admit Impression : Observation/Evaluation Admit Plan: Admit to Unit; Observation/Evaluation ALLERGIES Medication Allergies: No Medication Allergies: No Known Allergies (09/06/2020) Latex: No Latex Allergies Food Allergies: denies Environmental Allergies: denies OBSTETRICAL HISTORY EDC: 09/23/2020 00:00 : 4 Para: 1 Term: 1 : 0 SAB: 1 IAB: 1 Ectopic: 0 Livin (Annotations: Data stored by CPN on behalf of user) Cesareans: 0 VBACs: 0 Multiple Births: 0 Gestational Diabetes: Yes Rh Sensitization: No Incompetent Cervix: No MATTHEW: No Infertility: No ART Treatment: No Uterine Anomaly: No IUGR: No Hx Previous C/S: No Macrosomia: No Hx Loss/Stillborn: No PIH: Yes Hx : No Placenta Previa/Abruption: No Depression/PP Depression: No PTL/PROM: No Post Hemorrhage: No Current Procedures: Ultrasound; NST Obstetrical History Comments: patient was told that first baby was almost a shoulder dystocia and to watch efw in the future for deliveries G1-2010 SAB with D_C - 2012 39.6 Epidural Female G3- 2015 EAB G4- Current SEE RECORDS Alcohol: No Marijuana : No Cocaine: No Other Illicit Drugs: No Cigarettes: Never Smoker. 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 Surgery: No Heart Disease: No Hosp/Surgery: Yes Autoimmune Disorder: No Anesthetic Complications: No Kidney Disease: No Abnormal Pap Smear: No Neuro/Epilepsy: No Psychiatric Disorders: No Other Medical Diseases: No Hepatitis/Liver Disease: No Significant Family History: No Varicosities/Phlebitis: No Trauma/Violence : No Thyroid Dysfunction: No Medical History Comments: gallbladder removed during early , childbirth x 1, CHTN, GDM, D_C INFECTIOUS HISTORY Gonorrhea: No Genital Herpes: No Chlamydia: Yes Tuberculosis: No Syphilis: No Hepatitis: No HIV/AIDS Exposure: No Rash or Viral Illness: No HPV: No Infectious History Comments: chlamydia 2008 PHYSICAL EXAM General: Normal HEENT: Normal Neurologic: Normal Thyroid: Deferred Heart: Normal Lungs: Normal Breast: Deferred Back: Normal Abdomen: Normal Genitourinary Exam: Normal Extremities: Normal DTRs: Normal Pelvic Type: Adequate Vital Signs: Reviewed Details Vital Signs: severe range BPs VAGINAL EXAM Dilatation: ft Contraction Comments: irregular MEMBRANES Membranes: Intact FETUS A EGA: 37.4 Monitoring: External US Accelerations: 15X15 Decelerations: None FHR Category: Category I Presentation: Vertex Admit Comment: 25yo PPD #4 after delivery due to CHTN with superimposed preE. She presented through the ED with severe range BPs and HOBSON/blurry vision. She did not receive mag sulfate during delivery or pp. Will admit for BP control and Mag sulfate. Mag protocol. Will get breast pump. labs ordered FETUS B Monitoring: External US PLANS FOR LABOR AND DELIVERY Labor and Delivery: None Pain Management: Natural Feeding Preference: Breast Benefit of Breast Feed Discussed: Yes Circumcision: N/A INFORMED CONSENT Informed Consent Obtained: Vaginal Delivery; Risks, Benefits and Alternatives Discussed Assignment: Amrita Lopez MD Signature: with User ID: Amelia : with User ID: [email or web address]
[2020-09-06] MEDS ORDERED: HYDRALAZINE HCL INJ/PF 20 MG/1 ML SDV IV ONE (20:20)
[2020-09-06 20:21] LABS: URINE AMPHETAMINES SCREEN NEGATIVE; URINE BARBITURATES SCREEN NEGATIVE; URINE BENZODIAZEPINES SCREEN NEGATIVE; URINE COCAINE SCREEN NEGATIVE; URINE MARIJUANA (THC) SCREEN NEGATIVE; URINE METHADONE SCREEN NEGATIVE; URINE PHENCYCLIDINE SCREEN NEGATIVE
[2020-09-06] MEDS: MAGNESIUM SULFATE 20 GM/500 ML RTUINJ IV PRN (20:23)
[2020-09-06 20:30] LABS: UR PRO/CREAT RATIO RESULT 0.4 mg/mg (0.0-0.2); URINE CREATININE 48.5 mg/dL (16-327)
[2020-09-06] MEDS ORDERED: ACETAMINOPHEN 325 MG TABLET PO ONE (20:47)
[2020-09-06] MEDS ORDERED: HYDRALAZINE HCL INJ/PF 20 MG/1 ML SDV ONE (20:48)
[2020-09-06] MEDS ORDERED: ACETAMINOPHEN 325 MG TABLET ONE (20:48)
[2020-09-06 20:59] LABS: ABSOLUTE BASOPHILS # (AUTO) 0.1 10^3/uL (0.0-0.2); ABSOLUTE EOSINOPHILS # (AUTO) 0.4 10^3/uL (0.0-0.6); ABSOLUTE LYMPHOCYTES (AUTO) 2.1 10^3/uL (0.5-4.7); ABSOLUTE MONOCYTES (AUTO) 0.8 10^3/uL (0.1-1.4); ABSOLUTE NEUT (AUTO) 7.6 10^3/uL (1.7-8.2); BASOPHILS % (AUTO) 0.6 % (0-2); EOSINOPHILS % (AUTO) 3.3 % (0-6); HEMATOCRIT 34.8 % (36.0-47.0); HEMOGLOBIN 11.8 g/dL (12.0-15.5); LYMPHOCYTES % (AUTO) 19.3 % (13-45); MEAN CORPUSCULAR HEMOGLOBIN 28.6 pg (27.0-33.4); MEAN CORPUSCULAR HGB CONC 33.8 g/dL (32.0-36.0); MEAN CORPUSCULAR VOLUME 85 fl (80-97); MONOCYTES % (AUTO) 7.7 % (3-13); PLATELET COUNT 300 10^3/uL (150-450); RED BLOOD COUNT 4.11 10^6/uL (3.72-5.28); RED CELL DISTRIBUTION WIDTH 13.5 % (11.5-14.0); SEGMENTED NEUTROPHILS % (AUTO) 69.1 % (42-78); TOTAL CELLS COUNTED % (AUTO) 100 %
[2020-09-06 21:10] LABS: ALBUMIN 3.8 g/dL (3.5-5.0); ALKALINE PHOSPHATASE 153 U/L (38-126); ANION GAP 12 (5-19); ASPARTATE AMINO TRANSFERASE 25 U/L (14-36); BILIRUBIN,TOTAL 0.7 mg/dL (0.2-1.3); BLOOD UREA NITROGEN 10 mg/dL (7-20); CARBON DIOXIDE 21 mmol/L (22-30); CHLORIDE 105 mmol/L (98-107); GLUCOSE 103 mg/dL (75-110); POTASSIUM 4.2 mmol/L (3.6-5.0); TOTAL PROTEIN 6.7 g/dL (6.3-8.2)
[2020-09-06] MEDS: AMLODIPINE BESYLATE 5 MG TABLET PO SCH (21:24)
[2020-09-06] MEDS ORDERED: BUTALB/ACETAMINOPHEN/CAFFEINE 1 TAB EACH PO PRN (22:46)
[2020-09-06] MEDS ORDERED: KETOROLAC TROMETHAMINE INJ/PF 30 MG/1 ML SDV IV ONE (22:47)
[2020-09-06] MEDS ORDERED: BUTALB/ACETAMINOPHEN/CAFFEINE 1 TAB EACH ONE (22:47)
[2020-09-07] MEDS ORDERED: KETOROLAC TROMETHAMINE INJ/PF 30 MG/1 ML SDV ONE (02:02)
[2020-09-07] MEDS ORDERED: LABETALOL HCL 200 MG TABLET ONE ×2 (06:06→17:59)
[2020-09-07] MEDS: LABETALOL HCL 200 MG TABLET PO SCH ×2 (06:14→18:05)
[2020-09-07] MEDS ORDERED: ACETAMINOPHEN 325 MG TABLET ONE (13:34)
[2020-09-07] MEDS: ACETAMINOPHEN 325 MG TABLET PO PRN (13:37)
[2020-09-07] MEDS ORDERED: MAGNESIUM SULFATE 20 GM/500 ML RTUINJ IV ONE (16:08)
[2020-09-07] MEDS: MAGNESIUM SULFATE 20 GM/500 ML RTUINJ IV PRN (16:14)
[2020-09-07] MEDS ORDERED: DIPHENHYDRAMINE HCL 25 MG CAPSULE ONE (21:10)
[2020-09-07] MEDS: AMLODIPINE BESYLATE 5 MG TABLET PO SCH (21:16)
[2020-09-07] MEDS ORDERED: DIPHENHYDRAMINE HCL 25 MG CAPSULE PO ONE (21:24)
[2020-09-08] MEDS ORDERED: ACETAMINOPHEN 325 MG TABLET ONE (03:16)
[2020-09-08] MEDS: ACETAMINOPHEN 325 MG TABLET PO PRN (03:17)
[2020-09-08] MEDS ORDERED: LABETALOL HCL 200 MG TABLET ONE (05:48)
[2020-09-08] MEDS: LABETALOL HCL 200 MG TABLET PO SCH (06:06)
--- NOTE | 2020-09-08 06:41 | PDOC DISCHARGE SUMMARY ---
Impression - Admit/DC Date/PCP Admission Date/Primary Care Provider: 09/07/20 18:30 DEBORAH SOUSA MD Discharge Date: 09/08/20 - Discharge Diagnosis (1) Pre-eclampsia, Is this a current diagnosis for this admission?: Yes (2) Pre-eclampsia superimposed on chronic hypertension Is this a current diagnosis for this admission?: Yes - Additional Information Resuscitation Status: Full Code Discharge Diet: As Tolerated Discharge Activity: Activity As Tolerated, Balance Activity w/Rest, Pelvic Rest, No tub bath, Weigh Daily Referrals: DEBORAH SOUSA MD [Primary Care Provider] - Prescriptions: Amlodipine Besylate [Norvasc 5 mg Tablet] 5 mg PO QHS 30 Days #30 tablet Labetalol HCl [Normodyne 200 mg Tablet] 100 mg PO Q12A 30 Days #60 tablet Home Medications: Pnv 102/Iron/Folate 1/Dss/Dha [Vitafol Fe+ Docusate Combo Pck] 1 each PO DAILY 07/01/20 Amlodipine Besylate [Norvasc 5 mg Tablet] 5 mg PO QHS 30 Days #30 tablet 09/08/20 Labetalol HCl [Normodyne 200 mg Tablet] 100 mg PO Q12A 30 Days #60 tablet 09/08/20 History of Present Illiness History of Present Illness: VENU MCCLAIN is a 25 year old female Hospital Course Hospital Course: pt placed on mag for 24 hours with bp medication. Mag discontinued and bp is within moderate range. pt d/paige and will f/u in office this week Physical Exam - Physical Exam Vital Signs: Intake & Output 09/06/20 09/07/20 09/08/20 06:59 06:59 06:59 Intake Total 496 Balance 496 General appearance: PRESENT: no acute distress Respiratory exam: PRESENT: clear to auscultation jensen Cardiovascular exam: PRESENT: RRR - 1 PLUS edema Results Laboratory Results: WBC 11.0 10^3/uL (4.0-10.5) H 09/06/20 20:35 RBC 4.11 10^6/uL (3.72-5.28) 09/06/20 20:35 Hgb 11.8 g/dL (12.0-15.5) L 09/06/20 20:35 Hct 34.8 % (36.0-47.0) L 09/06/20 20:35 MCV 85 fl (80-97) 09/06/20 20:35 MCH 28.6 pg (27.0-33.4) 09/06/20 20:35 MCHC 33.8 g/dL (32.0-36.0) 09/06/20 20:35 RDW 13.5 % (11.5-14.0) 09/06/20 20:35 Plt Count 300 10^3/uL (150-450) 09/06/20 20:35 Lymph % (Auto) 19.3 % (13-45) 09/06/20 20:35 [place] % (Auto) 7.7 % (3-13) 09/06/20 20:35 Eos % (Auto) 3.3 % (0-6) 09/06/20 20:35 Baso % (Auto) 0.6 % (0-2) 09/06/20 20:35 Absolute Neuts (auto) 7.6 10^3/uL (1.7-8.2) 09/06/20 20:35 Absolute Lymphs (auto) 2.1 10^3/uL (0.5-4.7) 09/06/20 20:35 Absolute Monos (auto) 0.8 10^3/uL (0.1-1.4) 09/06/20 20:35 Absolute Eos (auto) 0.4 10^3/uL (0.0-0.6) 09/06/20 20:35 Absolute Basos (auto) 0.1 10^3/uL (0.0-0.2) 09/06/20 20:35 Seg Neutrophils % 69.1 % (42-78) 09/06/20 20:35 Sodium 137.8 mmol/L (137-145) 09/06/20 20:35 Potassium 4.2 mmol/L (3.6-5.0) 09/06/20 20:35 Chloride 105 mmol/L (98-107) 09/06/20 20:35 Carbon Dioxide 21 mmol/L (22-30) L 09/06/20 20:35 Anion Gap 12 (5-19) 09/06/20 20:35 BUN 10 mg/dL (7-20) 09/06/20 20:35 Creatinine 0.56 mg/dL (0.52-1.25) 09/06/20 20:35 Est GFR ( Amer) > 60 (>60) 09/06/20 20:35 Est GFR (MDRD) Non-Af > 60 (>60) 09/06/20 20:35 Glucose 103 mg/dL (75-110) 09/06/20 20:35 Uric Acid 6.0 mg/dL (2.5-6.2) 09/06/20 20:35 Calcium 10.0 mg/dL (8.4-10.2) 09/06/20 20:35 Total Bilirubin 0.7 mg/dL (0.2-1.3) 09/06/20 20:35 Direct Bilirubin 0.0 mg/dL (0.0-0.4) 09/06/20 20:35 Neonat Total Bilirubin Not Reportable 09/06/20 20:35 Neonat Direct Bilirubin Not Reportable 09/06/20 20:35 Neonat Indirect Bili Not Reportable 09/06/20 20:35 AST 25 U/L (14-36) 09/06/20 20:35 ALT 24 U/L (<35) 09/06/20 20:35 Alkaline Phosphatase 153 U/L (38-126) H 09/06/20 20:35 Lactate Dehydrogenase 176 U/L (120-246) 09/06/20 20:35 Total Protein 6.7 g/dL (6.3-8.2) 09/06/20 20:35 Albumin 3.8 g/dL (3.5-5.0) 09/06/20 20:35 Urine Creatinine 48.5 mg/dL (16-327) 09/06/20 19:13 Protein/Creatinin Ratio 0.4 mg/mg (0.0-0.2) H 09/06/20 19:13 Urine Total Protein 21.0 mg/dL (<12) H 09/06/20 19:13 Urine Opiates Screen NEGATIVE 09/06/20 19:13 Urine Methadone Screen NEGATIVE 09/06/20 19:13 Ur Barbiturates Screen NEGATIVE 09/06/20 19:13 Ur Phencyclidine Scrn NEGATIVE 09/06/20 19:13 Ur Amphetamines Screen NEGATIVE 09/06/20 19:13 U Benzodiazepines Scrn NEGATIVE 09/06/20 19:13 Urine Cocaine Screen NEGATIVE 09/06/20 19:13 U Marijuana (THC) Screen NEGATIVE 09/06/20 19:13 Plan Health Concerns: bp Plan of Treatment: dc fu 2-3 days Stroke Is this a Stroke Patient?: No Acute Heart Failure Is this a Heart Failure Patient?: No
== END 2020-09-08 06:29 | disposition home or self-care (01) | DRG 776 ==
LOC: LC 18:57 → LR 19:23 → OBSVTOIN 09-07 18:30
PROVIDERS: ADMIT Student in an Organized Health Care Education/Training Program; ATTEND Student in an Organized Health Care Education/Training Program
DX: O11.5 Pre-existing hypertension with pre-eclampsia, complicating the puerperium (principal); Z3A.37 37 weeks gestation of pregnancy
CPT/HCPCS: 36415; 80053; 80307; 82570; 83615; 84156; 84550; 85025; J0360; J1885; J3475; J3490

== ENCOUNTER → 2020-09-11 | Outpatient (CLI) | payer MEDICAID ==
[2020-09-11 16:55] LABS: ABSOLUTE BASOPHILS # (AUTO) 0.1 10^3/uL (0.0-0.2); ABSOLUTE EOSINOPHILS # (AUTO) 0.4 10^3/uL (0.0-0.6); ABSOLUTE LYMPHOCYTES (AUTO) 1.8 10^3/uL (0.5-4.7); ABSOLUTE MONOCYTES (AUTO) 0.9 10^3/uL (0.1-1.4); ABSOLUTE NEUT (AUTO) 8.3 10^3/uL (1.7-8.2); BASOPHILS % (AUTO) 0.7 % (0-2); EOSINOPHILS % (AUTO) 3.1 % (0-6); HEMATOCRIT 42.8 % (36.0-47.0); HEMOGLOBIN 14.2 g/dL (12.0-15.5); LYMPHOCYTES % (AUTO) 15.9 % (13-45); MEAN CORPUSCULAR HEMOGLOBIN 28.2 pg (27.0-33.4); MEAN CORPUSCULAR HGB CONC 33.2 g/dL (32.0-36.0); MEAN CORPUSCULAR VOLUME 85 fl (80-97); MONOCYTES % (AUTO) 7.9 % (3-13); PLATELET COUNT 391 10^3/uL (150-450); RED BLOOD COUNT 5.03 10^6/uL (3.72-5.28); RED CELL DISTRIBUTION WIDTH 13.6 % (11.5-14.0); SEGMENTED NEUTROPHILS % (AUTO) 72.4 % (42-78); TOTAL CELLS COUNTED % (AUTO) 100 %; WHITE BLOOD COUNT 11.4 10^3/uL (4.0-10.5)
[2020-09-11 17:08] LABS: ALBUMIN 4.6 g/dL (3.5-5.0); ALKALINE PHOSPHATASE 149 U/L (38-126); ANION GAP 13 (5-19); ASPARTATE AMINO TRANSFERASE 20 U/L (14-36); BILIRUBIN,TOTAL 0.9 mg/dL (0.2-1.3); BLOOD UREA NITROGEN 15 mg/dL (7-20); CALCIUM 10.1 mg/dL (8.4-10.2); CARBON DIOXIDE 22 mmol/L (22-30); CHLORIDE 105 mmol/L (98-107); GLUCOSE 84 mg/dL (75-110); POTASSIUM 4.7 mmol/L (3.6-5.0); TOTAL PROTEIN 7.9 g/dL (6.3-8.2); URIC ACID 8.1 mg/dL (2.5-6.2)
== END ==
LOC: OD 15:50
PROVIDERS: ATTEND Midwife
DX: O16.5 Unspecified maternal hypertension, complicating the puerperium (principal); Z3A.00 Weeks of gestation of pregnancy not specified
CPT/HCPCS: 36415; 80053; 83615; 84550; 85025

== ENCOUNTER 2020-10-01 17:50 | Emergency (ER) | payer MEDICAID ==
--- NOTE | 2020-10-01 18:42 | ER Document Report ---
ED Medical Screen (RME) - General Chief Complaint: Shortness Of Breath Stated Complaint: SHORT OF BREATH,CONFUSION Time Seen by Provider: 10/01/20 18:39 Primary Care Provider: JEROMY HAWTHORNE MD [Primary Care Provider] - Follow up as needed TRAVEL OUTSIDE OF THE [place] IN LAST 30 DAYS: No - HPI Notes: 10/01/20 18:40 25-year-old female with a history of asthma presents to emergency room shortness of breath that started yesterday has become progressively worse today. Patient does report some dizziness with her shortness of breath. Patient is 3 weeks, gave a vaginal delivery here at [facility]. Reports she did have preeclampsia with her . G4, P2. As far she knows she has not had any positive Covid exposures. Has not tried any [id number] medications. Patient is currently breast-feeding. Denies any chest pain, nausea vomiting diarrhea. Denies any fevers or chills. I have greeted and performed a rapid initial assessment of this patient. A comprehensive ED assessment and evaluation of the patient, analysis of test results and completion of the medical decision making process will be conducted by additional ED providers. PHYSICAL EXAMINATION: GENERAL: Well-appearing, well-nourished and in no acute distress. NECK: Normal range of motion CV: s1, s2 regular LUNGS: No respiratory distress The patient was evaluated during a global COVID-19 pandemic and that diagnosis was suspected/considered upon their initial presentation. Their evaluation, treatment and testing was consistent with current guidelines for patients who present with complaints or symptoms and may be related to COVID-19. - Related Data Allergies/Adverse Reactions: No Known Allergies Allergy (Verified 09/06/20 18:50) Past Medical History - Past Medical History Cardiac Medical History: Reports: Hx Hypercholesterolemia, Hx Hypertension Pulmonary Medical History: Reports: Hx Asthma Endocrine Medical History: Renal/ Medical History: Reports: Hx Ovarian Cysts. Denies: Hx Peritoneal Dialysis Psychiatric Medical History: Reports: Hx Anxiety Past Surgical History: Reports: Hx Genitourinary Surgery - D&C, Other - D&C - Immunizations Immunizations up to date: Yes Hx Diphtheria, Pertussis, Tetanus Vaccination: Yes Physical Exam - Vital signs Vitals: Temp Pulse Resp BP Pulse Ox 98.4 F 67 20 147/97 H 100 10/01/20 17:59 10/01/20 17:59 10/01/20 17:59 10/01/20 17:59 10/01/20 17:59 Course - Vital Signs Vital signs: Temp Pulse Resp BP Pulse Ox 98.4 F 67 20 147/97 H 100 10/01/20 17:59 10/01/20 17:59 10/01/20 17:59 10/01/20 17:59 10/01/20 17:59 Doctor's Discharge - Discharge Referrals: JEROMY HAWTHORNE MD [Primary Care Provider] - Follow up as needed
--- NOTE | 2020-10-01 19:56 | RADIOLOGY REPORT (SQ) ---
EXAM DESCRIPTION: CHEST SINGLE VIEW IMAGES COMPLETED DATE/TIME: 10/01/2020 7:25 pm REASON FOR STUDY: sob x 2 days, +asthma COMPARISON: 01/09/2020 EXAM PARAMETERS: NUMBER OF VIEWS: One view. TECHNIQUE: Single frontal radiographic view of the chest acquired. RADIATION DOSE: NA LIMITATIONS: None. FINDINGS: LUNGS AND PLEURA: No opacities, masses or pneumothorax. No pleural effusion. MEDIASTINUM AND HILAR STRUCTURES: No masses. Contour normal. HEART AND VASCULAR STRUCTURES: Heart normal in size. Normal vasculature. BONES: No acute findings. HARDWARE: None in the chest. OTHER: No other significant finding. IMPRESSION: NO ACUTE RADIOGRAPHIC FINDING IN THE CHEST. TECHNICAL DOCUMENTATION: JOB ID: [id number] 2010 [employer]- All Rights Reserved Reading location - IP/workstation name: [email or web address]
[2020-10-01 20:38] LABS: ABSOLUTE BASOPHILS # (AUTO) 0.1 10^3/uL (0.0-0.2); ABSOLUTE EOSINOPHILS # (AUTO) 0.6 10^3/uL (0.0-0.6); ABSOLUTE LYMPHOCYTES (AUTO) 2.2 10^3/uL (0.5-4.7); ABSOLUTE MONOCYTES (AUTO) 0.6 10^3/uL (0.1-1.4); ABSOLUTE NEUT (AUTO) 6.7 10^3/uL (1.7-8.2); BASOPHILS % (AUTO) 1.1 % (0-2); EOSINOPHILS % (AUTO) 5.5 % (0-6); HEMATOCRIT 46.1 % (36.0-47.0); HEMOGLOBIN 15.7 g/dL (12.0-15.5); MEAN CORPUSCULAR HEMOGLOBIN 28.4 pg (27.0-33.4); MEAN CORPUSCULAR VOLUME 84 fl (80-97); MONOCYTES % (AUTO) 5.9 % (3-13); PLATELET COUNT 252 10^3/uL (150-450); RED BLOOD COUNT 5.51 10^6/uL (3.72-5.28); RED CELL DISTRIBUTION WIDTH 13.5 % (11.5-14.0); SEGMENTED NEUTROPHILS % (AUTO) 65.5 % (42-78); TOTAL CELLS COUNTED % (AUTO) 100 %; WHITE BLOOD COUNT 10.2 10^3/uL (4.0-10.5)
[2020-10-01 21:01] LABS: ALBUMIN 4.9 g/dL (3.5-5.0); ALKALINE PHOSPHATASE 113 U/L (38-126); ANION GAP 11 (5-19); ASPARTATE AMINO TRANSFERASE 27 U/L (14-36); BILIRUBIN,DIRECT 0.2 mg/dL (0.0-0.4); BILIRUBIN,TOTAL 1.2 mg/dL (0.2-1.3); BLOOD UREA NITROGEN 12 mg/dL (7-20); CARBON DIOXIDE 24 mmol/L (22-30); CHLORIDE 104 mmol/L (98-107); GLUCOSE 90 mg/dL (75-110); POTASSIUM 4.5 mmol/L (3.6-5.0); TOTAL PROTEIN 8.2 g/dL (6.3-8.2)
--- NOTE | 2020-10-01 23:01 | RADIOLOGY REPORT (SQ) ---
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 Images were obtained after the administration of 61 mL of Omnipaque 350 intravenous contrast. MIPS were created. FINDINGS: Central airways are patent. Lungs are clear. Mediastinal windows show no significant hilar or mediastinal lymph node enlargement. Soft tissue density is noted about the anterior mediastinum, likely corresponding to residual thymus given the patient's age. Heart and great vessels show no suspicious finding. The study is adequate for the evaluation of pulmonary emboli. No filling defects are identified to the proximal segmental level. Limited evaluation of the upper abdomen reveals postsurgical changes of cholecystectomy. No additional suspicious findings. Bone windows through the chest reveal no destructive osseous lesions. IMPRESSION: No evidence of pulmonary embolism or other acute abnormality within the chest.
--- NOTE | 2020-10-01 23:32 | ER Document Report ---
ED General - General Chief Complaint: Shortness Of Breath Stated Complaint: SHORT OF BREATH,CONFUSION Time Seen by Provider: 10/01/20 18:39 Primary Care Provider: JEROMY HAWTHORNE MD [Primary Care Provider] - Follow up as needed Mode of Arrival: Ambulatory Information source: Patient Notes: 25-year-old female with a history of asthma presents to emergency room shortness of breath that started yesterday has become progressively worse today. Patient does report some dizziness with her shortness of breath. Patient is 3 weeks, gave a vaginal delivery here at [facility]. Reports she did have preeclampsia with her . G4, P2. As far she knows she has not had any positive Covid exposures. Has not tried any [id number] medications. Patient is currently breast-feeding. Denies any chest pain, nausea vomiting diarrhea. Denies any fevers or chills. TRAVEL OUTSIDE OF THE [place] IN LAST 30 DAYS: No - Related Data Allergies/Adverse Reactions: No Known Allergies Allergy (Verified 09/06/20 18:50) Past Medical History - General Information source: Patient - Social History Smoking Status: Never Smoker Chew tobacco use (# tins/day): No Frequency of alcohol use: None Drug Abuse: None Family History: None - Past Medical History Cardiac Medical History: Reports: Hx Hypercholesterolemia, Hx Hypertension Pulmonary Medical History: Reports: Hx Asthma Endocrine Medical History: Reports: Hx Diabetes Mellitus Type 2 - "borderline" Renal/ Medical History: Reports: Hx Ovarian Cysts. Denies: Hx Peritoneal Dialysis Psychiatric Medical History: Reports: Hx Anxiety Past Surgical History: Reports: Hx Genitourinary Surgery - D&C, Other - D&C - Immunizations Immunizations up to date: Yes Hx Diphtheria, Pertussis, Tetanus Vaccination: Yes Review of Systems - Review of Systems Respiratory: Short of breath -: Yes All other systems reviewed and negative Physical Exam - Vital signs Vitals: Temp Pulse Resp BP Pulse Ox 98.4 F 67 20 147/97 H 100 10/01/20 17:59 10/01/20 17:59 10/01/20 17:59 10/01/20 17:59 10/01/20 17:59 - Notes Notes: PHYSICAL EXAMINATION: GENERAL: Well-appearing, well-nourished and in no acute distress. HEAD: Atraumatic, normocephalic. EYES: Pupils equal round and reactive to light, extraocular movements intact, conjunctiva are normal. ENT: Nares patent, oropharynx clear without exudates. Moist mucous membranes. NECK: Normal range of motion, supple without lymphadenopathy LUNGS: Breath sounds clear to auscultation bilaterally and equal. No wheezes rales or rhonchi. HEART: Regular rate and rhythm without murmurs ABDOMEN: Soft, nontender, nondistended abdomen. No guarding, no rebound. No masses appreciated. Female : deferred Musculoskeletal: Normal range of motion, no pitting or edema. No cyanosis. NEUROLOGICAL: Cranial nerves grossly intact. Normal speech, normal gait. Normal sensory, motor exams PSYCH: Normal mood, normal affect. SKIN: Warm, Dry, normal turgor, no rashes or lesions noted. Course - Re-evaluation Re-evalutation: Patient's work-up today has been reassuring. All laboratory investigations were negative. Covid was negative. Patient does have shortness of breath in the setting of recent vaginal delivery. She does have a history of asthma, states this feels much different than any asthma exacerbation she has had. For this reason we have sent her for a CTA to rule out pulmonary embolism. This was negative. As stated above Covid was negative, I did explain to patient that if she continues to have shortness of breath or additional worsening symptoms she should reconsider being Covid tested again, strict ED return precautions were discussed, patient verbalized understanding and agreement with same. - Vital Signs Vital signs: Temp Pulse Resp BP Pulse Ox 98.3 F 67 20 139/86 H 100 10/01/20 20:17 10/01/20 20:12 10/01/20 17:59 10/01/20 20:12 10/01/20 17:59 - Laboratory Results Result Diagrams: 10/01/20 19:51 10/01/20 19:51 Laboratory Results Interpreted: 10/01/20 19:51 RBC 5.51 H Hgb 15.7 H Critical Laboratory Results Reviewed: No Critical Results - Radiology Results Critical Radiology Results Reviewed: No Critical Results - EKG Interpretation by [place] EKG shows normal: Sinus rhythm - Rate 63, normal axis, normal intervals, no ST segment elevations or depressions to suggest ischemia. Discharge - Discharge Clinical Impression: shortness of breath, Encounter for laboratory testing for COVID-19 virus Condition: Stable Disposition: HOME, SELF-CARE Additional Instructions: Your work-up today was reassuring. Your Covid test was negative. The CAT scan of your chest showed no acute abnormality such as pulmonary embolism. Please rest, hydrate well, Tylenol or ibuprofen for any body aches. Return if worsening. Referrals: JEROMY HAWTHORNE MD [Primary Care Provider] - Follow up as needed
[2020-10-01 23:46] VITALS: BP 137/90
--- NOTE | 2020-10-02 02:01 | EKG REPORT ---
SEVERITY:- NORMAL ECG - SINUS RHYTHM : Confirmed by: Valerie Jay MD 02-Oct-2020 01:59:47
== END 2020-10-01 23:46 | disposition home or self-care (01) ==
LOC: ER 17:50
DX: O99.53 Diseases of the respiratory system complicating the puerperium (principal); J45.909 Unspecified asthma, uncomplicated; O90.89 Other complications of the puerperium, not elsewhere classified; R06.02 Shortness of breath; R42 Dizziness and giddiness; O16.5 Unspecified maternal hypertension, complicating the puerperium; Z20.828 Contact with and (suspected) exposure to other viral communicable diseases
CPT/HCPCS: 93005; 99285; 36415; 85025; 0202U ×23; 80053; 71045; 71275; 93010

== ENCOUNTER 2020-10-09 21:29 | Emergency (ER) | payer MEDICAID ==
--- NOTE | 2020-10-09 21:48 | ER Document Report ---
ED Medical Screen (RME) - General Chief Complaint: Flank Pain Stated Complaint: RIGHT FLANK PAIN Time Seen by Provider: 10/09/20 21:45 Primary Care Provider: JEROMY HAWTHORNE MD [Primary Care Provider] - Follow up as needed Mode of Arrival: Ambulatory Information source: Patient Notes: 25-year-old female presented to ED for complaint of right flank pain since this morning. She states she has not done any history of heavy lifting or anything that would cause an injury in this area. She states she does have a history of kidney stones. She states her last kidney stone was a couple years ago. She states she did just have a baby a month ago when she still had some bleeding so she does not know if she is bleeding with her urine or from still from the baby. Get blood urine and a CT abdomen pelvis noncontrasted to evaluate for kidney stones. States she is not breast-feeding. We will give 600 mg ibuprofen while waiting to be seen in the back. She states she is driving. I have greeted and performed a rapid initial assessment of this patient. A comprehensive ED assessment and evaluation of the patient, analysis of test results and completion of medical decision making process will be conducted by an additional ED providers. TRAVEL OUTSIDE OF THE [place] IN LAST 30 DAYS: No - Related Data Allergies/Adverse Reactions: No Known Allergies Allergy (Verified 09/06/20 18:50) Past Medical History - Past Medical History Cardiac Medical History: Reports: Hx Hypercholesterolemia, Hx Hypertension Pulmonary Medical History: Reports: Hx Asthma Endocrine Medical History: Reports: Hx Diabetes Mellitus Type 2 - "borderline" Renal/ Medical History: Reports: Hx Ovarian Cysts. Denies: Hx Peritoneal Dialysis Psychiatric Medical History: Reports: Hx Anxiety Past Surgical History: Reports: Hx Genitourinary Surgery - D&C, Other - D&C - Immunizations Immunizations up to date: Yes Hx Diphtheria, Pertussis, Tetanus Vaccination: Yes Physical Exam - Vital signs Vitals: Temp Pulse Resp BP Pulse Ox 98.1 F 71 18 129/88 H 99 10/09/20 21:42 10/09/20 21:42 10/09/20 21:42 10/09/20 21:42 10/09/20 21:42 Course - Vital Signs Vital signs: Temp Pulse Resp BP Pulse Ox 98.1 F 71 18 129/88 H 99 10/09/20 21:42 10/09/20 21:42 10/09/20 21:42 10/09/20 21:42 10/09/20 21:42 Doctor's Discharge - Discharge Referrals: JEROMY HAWTHORNE MD [Primary Care Provider] - Follow up as needed
[2020-10-09] MEDS ORDERED: IBUPROFEN 600 MG TABLET PO ONE (21:49)
[2020-10-09 22:14] LABS: ABSOLUTE BASOPHILS # (AUTO) 0.1 10^3/uL (0.0-0.2); ABSOLUTE EOSINOPHILS # (AUTO) 0.7 10^3/uL (0.0-0.6); ABSOLUTE LYMPHOCYTES (AUTO) 2.9 10^3/uL (0.5-4.7); ABSOLUTE MONOCYTES (AUTO) 0.9 10^3/uL (0.1-1.4); ABSOLUTE NEUT (AUTO) 6.1 10^3/uL (1.7-8.2); BASOPHILS % (AUTO) 0.7 % (0-2); EOSINOPHILS % (AUTO) 6.7 % (0-6); HEMATOCRIT 39.2 % (36.0-47.0); HEMOGLOBIN 13.5 g/dL (12.0-15.5); LYMPHOCYTES % (AUTO) 27.2 % (13-45); MEAN CORPUSCULAR HEMOGLOBIN 28.6 pg (27.0-33.4); MEAN CORPUSCULAR HGB CONC 34.4 g/dL (32.0-36.0); MEAN CORPUSCULAR VOLUME 83 fl (80-97); MONOCYTES % (AUTO) 8.1 % (3-13); PLATELET COUNT 224 10^3/uL (150-450); RED BLOOD COUNT 4.71 10^6/uL (3.72-5.28); RED CELL DISTRIBUTION WIDTH 13.9 % (11.5-14.0); SEGMENTED NEUTROPHILS % (AUTO) 57.3 % (42-78); TOTAL CELLS COUNTED % (AUTO) 100 %; WHITE BLOOD COUNT 10.7 10^3/uL (4.0-10.5)
--- NOTE | 2020-10-09 22:38 | RADIOLOGY REPORT (SQ) ---
EXAM DESCRIPTION: CT ABD/PELVIS NO ORAL OR IV CLINICAL HISTORY: 25 years Female; Right flank pain, 1 month post . TECHNIQUE: CT of the abdomen and pelvis without intravenous contrast.. Oral contrastWas not used. All CT scans at this facility use dose modulation, iterative reconstruction, and/or weight based dosing when appropriate to reduce radiation dose to as low as reasonably achievable. This exam was performed according to our department optimization program which includes automated exposure control, adjustment of the mA and/or kv according to patient size and/or use of iterative reconstruction technique. COMPARISON: None. FINDINGS: Lower chest:The lung bases are clear. The visualized portion of heart and great vessels are normal. Abdomen: Liver and biliary tree: Gallbladder surgically absent. The unenhanced liver is unremarkable. Pancreas: Normal Spleen:Within normal limits Kidneys: Kidneys are normal in size, shape and position. No stones. No mass or hydronephrosis. Adrenal glands:Within normal limits Vascular structures:Within normal limits Retroperitoneum: No mass or lymphadenopathy Abdominal wall: normal GI: Scattered diverticula in the colon. There are scattered stool in the colon. The bowel is not dilated. No focal inflammation. No obstruction. Appendix: The appendix appears normal. General: No free air. No free fluid Pelvis: Lymph nodes: No mass or lymphadenopathy Bladder: The bladder is empty. Pelvis: Uterus is . It measures 10.7 x 6.0 x 9.2 cm. No adnexal mass. No fluid is seen in the endometrium. Bones: No acute bone findings. IMPRESSION: No acute process in the abdomen or pelvis. No renal or ureteral stones. The bowel is unremarkable. Appendix is normal.
[2020-10-09 22:49] LABS: APPEARANCE,URINE SLIGHTLY-CLOUDY; BILIRUBIN,URINE NEGATIVE (NEGATIVE); COLOR,URINE YELLOW; GLUCOSE, URINE NEGATIVE (NEGATIVE); KETONES,URINE NEGATIVE (NEGATIVE); LEUKOCYTE ESTERASE,URINE NEGATIVE (NEGATIVE); NITRITE,URINE NEGATIVE (NEGATIVE); PROTEIN,URINE NEGATIVE (NEGATIVE); URINE SPECIFIC GRAVITY 1.027; UROBILINOGEN,URINE NEGATIVE mg/dL (<2.0)
[2020-10-09 22:49] LABS: ALBUMIN 4.4 g/dL (3.5-5.0); ALKALINE PHOSPHATASE 92 U/L (38-126); ANION GAP 10 (5-19); ASPARTATE AMINO TRANSFERASE 18 U/L (14-36); BILIRUBIN,DIRECT 0.1 mg/dL (0.0-0.4); BILIRUBIN,TOTAL 0.6 mg/dL (0.2-1.3); BLOOD UREA NITROGEN 16 mg/dL (7-20); CALCIUM 9.6 mg/dL (8.4-10.2); CARBON DIOXIDE 24 mmol/L (22-30); CHLORIDE 106 mmol/L (98-107); GLUCOSE 92 mg/dL (75-110); POTASSIUM 4.2 mmol/L (3.6-5.0); TOTAL PROTEIN 7.2 g/dL (6.3-8.2)
--- NOTE | 2020-10-09 23:00 | ER Document Report ---
ED General - General Chief Complaint: Possible Kidney Stone Stated Complaint: RIGHT FLANK PAIN Time Seen by Provider: 10/09/20 21:45 Primary Care Provider: JEROMY HAWTHORNE MD [Primary Care Provider] - Follow up as needed Mode of Arrival: Ambulatory TRAVEL OUTSIDE OF THE [place] IN LAST 30 DAYS: No - HPI Notes: 25-year-old female presents with right flank pain. Patient states that she woke up this morning and had pain to her right side. She denies any known injury. 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 Pain is made worse with touching the area. It does not radiate. Has not tried any medications for pain. Denies dysuria or hematuria. She does report she has a history of a kidney stone several years ago. States she had a large bowel movement today. She is not currently breast-feeding. - Related Data Allergies/Adverse Reactions: No Known Allergies Allergy (Verified 10/09/20 22:31) Past Medical History - General Information source: Patient - Social History Smoking Status: Former Smoker Frequency of alcohol use: Occasional Drug Abuse: None Family History: None - Past Medical History Cardiac Medical History: Reports: Hx Hypercholesterolemia, Hx Hypertension Pulmonary Medical History: Reports: Hx Asthma Endocrine Medical History: Reports: Hx Diabetes Mellitus Type 2 - "borderline" Renal/ Medical History: Reports: Hx Ovarian Cysts. Denies: Hx Peritoneal Dialysis Psychiatric Medical History: Reports: Hx Anxiety Past Surgical History: Reports: Hx Genitourinary Surgery - D&C, Other - D&C - Immunizations Immunizations up to date: Yes Hx Diphtheria, Pertussis, Tetanus Vaccination: Yes Review of Systems - Review of Systems Constitutional: denies: Fever EENT: No symptoms reported Cardiovascular: No symptoms reported Respiratory: No symptoms reported Gastrointestinal: denies: Abdominal pain, Vomiting Genitourinary: denies: Dysuria, Hematuria Female Genitourinary: No symptoms reported Musculoskeletal: No symptoms reported Skin: denies: Rash Hematologic/Lymphatic: No symptoms reported Neurological/Psychological: No symptoms reported Physical Exam - Vital signs Vitals: Temp Pulse Resp BP Pulse Ox 98.1 F 71 18 129/88 H 99 10/09/20 21:42 10/09/20 21:42 10/09/20 21:42 10/09/20 21:42 10/09/20 21:42 - General General appearance: Appears well, Alert In distress: None - HEENT Head: Normocephalic, Atraumatic Extraocular movements intact: Yes Pupils: PERRL - Respiratory Breath sounds: Normal - Cardiovascular Rhythm: Regular Heart sounds: Normal auscultation - Abdominal Tenderness: Nontender - Back Back: Tender - Superficially to right lower back. No: CVA tenderness - Extremities General upper extremity: Normal ROM General lower extremity: Normal ROM - Neurological Neuro grossly intact: Yes Cognition: Normal Orientation: AAOx4 - Psychological Associated symptoms: Normal affect - Skin Skin Temperature: Warm Skin Color: Other - No erythema or rash Course - Re-evaluation Re-evalutation: 25-year-old female with right flank pain onset this morning when she woke up. On exam patient is well-appearing, afebrile, hemodynamic stable. She does not exhibit any right CVA tenderness. She does have some superficial tenderness to the right lower back. No erythema or rash to suggest shingles. She is neurologically intact. She had labs and imaging done to the triage process. T here is no significant leukocytosis, electrolytes within normal limits, creatinine within normal limits. Her urine does not have evidence of UTI or hematuria. Her CT abdomen Noncon was negative for stone. Updated patient on these results. I am suspecting musculoskeletal etiology of her pain. Rx ibuprofen and Flexeril. Return precautions given, stable at time of discharge. - Vital Signs Vital signs: Temp Pulse Resp BP Pulse Ox 98.1 F 73 15 122/73 99 10/09/20 23:25 10/09/20 23:25 10/09/20 23:25 10/09/20 23:25 10/09/20 23:25 - Laboratory Results Result Diagrams: 10/09/20 21:55 10/09/20 21:55 Laboratory Results Interpreted: 10/09/20 21:55 WBC 10.7 H Eos % (Auto) 6.7 H Absolute Eos (auto) 0.7 H Critical Laboratory Results Reviewed: No Critical Results - Radiology Results Critical Radiology Results Reviewed: No Critical Results Discharge - Discharge Clinical Impression: Right-sided back pain Qualifiers: Back pain location: low back pain Chronicity: acute Sciatica presence: without sciatica Qualified Code(s): M54.5 - Low back pain Disposition: HOME, SELF-CARE Additional Instructions: Continue use of ibuprofen, you may take 800 mg every 8 hours as needed. May also try use of Flexeril which is a muscle relaxer, do not use this medication if you are driving. Return to the emergency department for any concerning worsening symptoms. Prescriptions: Cyclobenzaprine HCl [Flexeril 10 mg Tablet] 10 mg PO TIDP PRN #15 tab PRN Reason: Ibuprofen [Ibu] 800 mg PO Q8H PRN #60 tablet PRN Reason: Referrals: JEROMY HAWTHORNE MD [Primary Care Provider] - Follow up as needed
[2020-10-09 23:27] VITALS: BP 122/73
== END 2020-10-09 23:25 | disposition home or self-care (01) ==
LOC: ER 21:29
DX: M54.5 Low back pain (principal); R10.9 Unspecified abdominal pain; I10 Essential (primary) hypertension; J45.909 Unspecified asthma, uncomplicated; Z87.891 Personal history of nicotine dependence
CPT/HCPCS: 99284; 36415; 87086; 84703; 85025; 80053; 81001; 74176; J3490